=== PATIENT | male | born 1945 | race Caucasian/White ===

== ENCOUNTER → 2020-12-11 | Outpatient (CLI) | payer MEDICARE ==
--- NOTE | 2020-12-11 10:58 | CT ---
EXAMINATION TYPE: CT lumbar spine wo con DATE OF EXAM: 12/11/2020 COMPARISON: Body CT 07/11/2015 HISTORY: 75 year-old male M54.5, low back pain TECHNIQUE: Contiguous axial scanning of the lumbar spine without IV contrast. Coronal and sagittal re constructions performed. CT DLP: 1798.9 mGycm Automated exposure control for dose reduction was used. FINDINGS: Left bending device noted. Moderate atherosclerotic calcifications of abdominal aorta and common jn c arteries. Scattered cortical hypodensities in both kidneys, largest measuring 3.0 cm at the left upper pole sug gestive of cysts though slightly increased in size from 2014. There are bilateral L5 pars defects with grade 2 anterolisthesis of L5-S1 and associated hyperostoti c changes of the facet joints and severe degenerative disc disease, progressed from 2014. Posterior o steophytic ridging may cause a mild or moderate spinal canal stenosis. Severe bilateral neural forami nal stenosis noted. Moderate to advanced degenerative disc disease with desiccated discs from L2 through L5 levels. Multilevel facet arthropathy. Trace grade 1 retrolisthesis L2-L3. Possible mild narrowing of the spin al canal at this level. Otherwise, vertebral body heights are preserved. At L4-L5, moderate to severe bilateral neural foraminal stenosis. At L2-L3 and L3-L4, moderate right neuroforaminal stenosis. IMPRESSION: 1. BILATERAL L5 PARS DEFECTS WITH GRADE 2 ANTEROLISTHESIS AT L5-S1 AND ASSOCIATED SEVERE DISC/ENDPLAT E DEGENERATIVE CHANGE AND HYPEROSTOTIC CHANGES OF THE FACET JOINTS (PROGRESSED FROM 2014) 2. THERE MA Y BE A MILD OR MODERATE SPINAL CANAL STENOSIS HERE BUT SEVERE BILATERAL NEUROFORAMINAL STENOSIS. 2. DESICCATED AND DEGENERATIVE DISKS FROM L2 THROUGH L5 LEVELS AND SCATTERED FACET ARTHROPATHY. DEGEN ERATIVE GRADE 1 RETROLISTHESIS AT L2-L3 AND POSSIBLE MILD NARROWING OF THE SPINAL CANAL AT THIS LEVEL . 3. ADDITIONAL MODERATE TO SEVERE BILATERAL NEURAL FORAMINAL STENOSIS AT L4-L5. MODERATE ON THE RIGHT AT BOTH L2-L3 AND L3-L4.
== END | disposition home or self-care (01) ==
LOC: RADCTMAIN 10:11
PROVIDERS: ATTEND Orthopaedic Surgery
DX: M48.061 Spinal stenosis, lumbar region without neurogenic claudication (principal); M43.16 Spondylolisthesis, lumbar region; M43.17 Spondylolisthesis, lumbosacral region; M51.36 Other intervertebral disc degeneration, lumbar region; M47.816 Spondylosis without myelopathy or radiculopathy, lumbar region
CPT/HCPCS: 72131

== ENCOUNTER → 2021-02-05 | Outpatient (CLI) | payer MEDICARE ==
--- NOTE | 2021-02-05 21:29 | MR ---
EXAMINATION TYPE: MR lumbar spine wo con DATE OF EXAM: 02/05/2021 COMPARISON: CT lumbar spine 12/11/2020 HISTORY: Lower back and Bilateral Hip pain CONTRAST: 0 mL intravenous Gadavist. TECHNIQUE: Multiplanar, multisequence images of the lumbar spine were acquired. FINDINGS: L5-S1: There is loss of disc height this level. There is a grade 1 approaching grade 2 spondylolisthe sis of L5 anterior on S1. Facet degenerative changes are present. Disc uncovering is moderate anterio r thecal sac compression. Severe bilateral foraminal stenosis is present L4-L5: Disc bulge is mild anterior thecal sac flattening. No AP spinal canal stenosis is present. Sev ere bilateral foraminal narrowing is present. Mild facet hypertrophy is present. L3-L4: There is narrowing of disc height. Mild disc bulges anterior thecal sac contact. Facet hypertr ophy with ligamentum flavum laxity is present greater on the right. No spinal canal stenosis present. Bilateral foraminal narrowing is present. L2-L3: Disc space narrowing is present. Disc bulge of intrathecal sac flattening. Moderate bilateral foraminal narrowing is present. No AP spinal canal stenosis present L1-L2: Mild disc degenerative changes present. Anterior thecal sac contact is noted. No AP spinal can al stenosis or neural foraminal stenosis is present. T12-L1: No significant disc bulge or disc herniation. No spinal canal stenosis. No foraminal stenos is. There is a cyst on the left kidney IMPRESSION: 1. Grade 1 to grade 2 spondylolisthesis of L5 anteriorly on S1. 2. Complete loss of disc height at L5-S1. Disc degenerative change is present L2-3 through L4-5. 3. Severe foraminal narrowing L5-S1, L4-5 and L3-4. Milder foraminal narrowing is present discussed a otto.
== END | disposition home or self-care (01) ==
LOC: RADMRIMAIN 12:17
PROVIDERS: ATTEND Orthopaedic Surgery
DX: M51.26 Other intervertebral disc displacement, lumbar region (principal); M51.36 Other intervertebral disc degeneration, lumbar region; M43.17 Spondylolisthesis, lumbosacral region; M47.817 Spondylosis without myelopathy or radiculopathy, lumbosacral region; M99.73 Connective tissue and disc stenosis of intervertebral foramina of lumbar region; N28.1 Cyst of kidney, acquired
CPT/HCPCS: 72148

== ENCOUNTER 2021-06-16 07:35 | Inpatient (IN) | payer MEDICARE ==
[2021-06-16] MEDS ORDERED: SODIUM CHLORIDE 0.9% 500 ML 500 ML IV STA (07:47)
[2021-06-16] MEDS ORDERED: DILTIAZEM DRIP BOLUS FROM BAG 1 MG SOLN IV ONE (07:59)
[2021-06-16 08:27] LABS: Basophils # (A) 0.1 k/uL (0-0.2); Basophils % (A) 1 %; Eosinophils # (A) 0.1 k/uL (0-0.7); Eosinophils % (A) 2 %; HCT 42.2 % (39.0-53.0); HGB 13.8 gm/dL (13.0-17.5); Lymphocytes # (A) 1.1 k/uL (1.0-4.8); Lymphocytes % (A) 12 %; MCH 28.2 pg (25.0-35.0); MCHC 32.7 g/dL (31.0-37.0); MCV 86.1 fL (80.0-100.0); Mean Platelet Volume 8.8; Monocytes # (A) 0.7 k/uL (0-1.0); Monocytes % (A) 8 %; Neutrophils # (A) 6.6 k/uL (1.3-7.7); Neutrophils % (A) 75 %; Platelet Count 212 k/uL (150-450); RDW 14.4 % (11.5-15.5); WBC 8.8 k/uL (3.8-10.6)
[2021-06-16] MEDS: DILTIAZEM 125 MG in SODIUM CHLORIDE 0.9% 100 ML IV SCH ×2 (08:31→22:00)
[2021-06-16 08:38] LABS: Prothrombin Time 10.8 sec (9.0-12.0)
--- NOTE | 2021-06-16 08:43 | XR ---
EXAMINATION TYPE: XR chest 2V DATE OF EXAM: 06/16/2021 COMPARISON: Chest July 23, 2015 HISTORY: Dysrhythmia and SVT. TECHNIQUE: Frontal and lateral views of the chest are obtained. FINDINGS: There is chronic parenchymal change bilaterally without suspicious focal air space opacity , pleural effusion, or pneumothorax seen. The cardiac silhouette size is mildly enlarged with athero sclerotic aorta. Multilevel spurring in the spine which is straightened. IMPRESSION: Chronic parenchymal changes and mild cardiomegaly without acute pulmonary process.
[2021-06-16 08:53] LABS: Albumin 3.7 g/dL (3.5-5.0); Calcium 8.9 mg/dL (8.4-10.2); Magnesium 1.5 mg/dL (1.6-2.3); Potassium 3.9 mmol/L (3.5-5.1); Total Bilirubin 0.7 mg/dL (0.2-1.3); Total Protein 6.5 g/dL (6.3-8.2)
[2021-06-16] MEDS ORDERED: HEPARIN SODIUM 1,000 UN/ML (10ML VL) IV PRN (09:28)
[2021-06-16] MEDS ORDERED: HEPARIN SODIUM 1,000 UN/ML (10ML VL) IV ONE (09:28)
[2021-06-16] MEDS ORDERED: NALOXONE 0.4 MG/ML 1 ML VIAL IV PRN (11:05)
[2021-06-16] MEDS ORDERED: ACETAMINOPHEN TAB 325 MG TAB PO PRN (11:15)
--- NOTE | 2021-06-16 11:22 | ED ---
General Adult HPI - General Chief complaint: Arrhythmia/Palpitations Stated complaint: abn EKG Time Seen by Provider: 06/16/21 07:40 Source: patient, RN notes reviewed, old records reviewed Mode of arrival: ambulatory Limitations: no limitations - History of Present Illness Initial comments: 75-year-old male sent from the outpatient surgery center with tachycardia. Patient was therefore pain shot. He denied any symptoms, no chest pain. No palpitations. No history of atrial fibrillation or atrial flutter. He was noted to have a heart rate of 140 and was sent to the emergency department. No abdominal pain nausea vomiting. No fever. - Related Data Home Medications Medication Instructions Recorded Confirmed Benazepril HCl [Lotensin] 40 mg PO HS 07/11/15 06/16/21 amLODIPine [Norvasc] 5 mg PO DAILY 07/11/15 06/16/21 hydroCHLOROthiazide [Hydrodiuril] 50 mg PO DAILY 07/11/15 06/16/21 metFORMIN HCL [Glucophage] 500 mg PO BID 07/11/15 06/16/21 Levothyroxine Sodium 125 mcg PO DAILY 06/16/21 06/16/21 Lidocaine 5% Patch [Lidoderm] 1 patch TRANSDERM DAILY 06/16/21 06/16/21 Simvastatin 20 mg PO HS 06/16/21 06/16/21 hydrALAZINE HCL [Apresoline] 100 mg PO BID 06/16/21 06/16/21 Allergies Allergy/AdvReac Type Severity Reaction Status Date / Time No Known Allergies Allergy Verified 06/16/21 09:56 Review of Systems ROS Statement: Those systems with pertinent positive or pertinent negative responses have been documented in the HPI. ROS Other: All systems not noted in ROS Statement are negative. Past Medical History Past Medical History: Diabetes Mellitus, Hyperlipidemia, Hypertension History of Any Multi-Drug Resistant Organisms: None Reported Past Surgical History: Unable to Obtain Additional Past Surgical History / Comment(s): lap band February 2010, thryoid removed 2010 Past Anesthesia/Blood Transfusion Reactions: No Reported Reaction Past Psychological History: No Psychological Hx Reported Smoking Status: Former smoker Past Alcohol Use History: Occasional Past Drug Use History: None Reported - Past Family History Father Family Medical History: Hyperlipidemia Additional Family Medical History / Comment(s): enlarged heart General Exam Limitations: no limitations General appearance: alert, in no apparent distress Head exam: Present: atraumatic, normocephalic Eye exam: Present: normal appearance, PERRL ENT exam: Present: normal exam Neck exam: Present: normal inspection. Absent: tenderness, meningismus Respiratory exam: Present: normal lung sounds bilaterally. Absent: respiratory distress, wheezes Cardiovascular Exam: Present: normal rhythm, tachycardia GI/Abdominal exam: Present: soft. Absent: distended, tenderness, guarding Extremities exam: Present: normal capillary refill, pedal edema Neurological exam: Present: alert, oriented X3, CN II-XII intact. Absent: motor sensory deficit Psychiatric exam: Present: normal affect, normal mood Skin exam: Present: warm, dry, intact. Absent: cyanosis, diaphoretic Course Vital Signs 06/16/21 06/16/21 07:38 09:17 Temperature 97.6 F Pulse Rate 140 H 137 H Respiratory 20 16 Rate Blood Pressure 129/81 107/83 O2 Sat by Pulse 97 100 Oximetry EKG Findings - EKG Comments: EKG Findings:: EKG: Atrial flutter with 21 AV conduction bifascicular block, no ST segment elevation, ventricular rate of 139, QRS duration 142, QTC 596. Medical Decision Making - Medical Decision Making 75-year-old male presenting with chief complaint of tachycardia. Patient appears to be in the atrial flutter with 2:1 AV conduction at a rate of 140. He has normal CBC, normal CMP, minimally elevated troponin at 0.054. Chest x-ray is clear. I did discuss case with Dr. Barnard who will admit. Cardiology placed on consult. Patient is started on Cardizem and heparin in the emergency department. - Lab Data Result diagrams: 06/16/21 08:04 06/16/21 08:04 Lab Results 06/16/21 06/16/21 06/16/21 Range/Units 08:04 08:04 08:04 WBC 8.8 (3.8-10.6) k/uL RBC 4.90 (4.30-5.90) m/uL Hgb 13.8 (13.0-17.5) gm/dL Hct 42.2 (39.0-53.0) % MCV 86.1 (80.0-100.0) fL MCH 28.2 (25.0-35.0) pg MCHC 32.7 (31.0-37.0) g/dL RDW 14.4 (11.5-15.5) % Plt Count 212 (150-450) k/uL MPV 8.8 Neutrophils % 75 % Lymphocytes % 12 % Monocytes % 8 % Eosinophils % 2 % Basophils % 1 % Neutrophils # 6.6 (1.3-7.7) k/uL Lymphocytes # 1.1 (1.0-4.8) k/uL Monocytes # 0.7 (0-1.0) k/uL Eosinophils # 0.1 (0-0.7) k/uL Basophils # 0.1 (0-0.2) k/uL PT 10.8 (9.0-12.0) sec INR 1.0 (<1.2) APTT 25.0 (22.0-30.0) sec Sodium 140 (137-145) mmol/L Potassium 3.9 (3.5-5.1) mmol/L Chloride 107 (98-107) mmol/L Carbon Dioxide 21 L (22-30) mmol/L Anion Gap 12 mmol/L BUN 17 (9-20) mg/dL Creatinine 1.33 H (0.66-1.25) mg/dL Est GFR (CKD-EPI)AfAm 60 (>60 ml/min/1.73 sqM) Est GFR (CKD-EPI)NonAf 52 (>60 ml/min/1.73 sqM) Glucose 138 H (74-99) mg/dL Calcium 8.9 (8.4-10.2) mg/dL Magnesium 1.5 L (1.6-2.3) mg/dL Total Bilirubin 0.7 (0.2-1.3) mg/dL AST 18 (17-59) U/L ALT 15 (4-49) U/L Alkaline Phosphatase 80 (38-126) U/L Troponin I (0.000-0.034) ng/mL Total Protein 6.5 (6.3-8.2) g/dL Albumin 3.7 (3.5-5.0) g/dL 06/16/21 Range/Units 08:04 WBC (3.8-10.6) k/uL RBC (4.30-5.90) m/uL Hgb (13.0-17.5) gm/dL Hct (39.0-53.0) % MCV (80.0-100.0) fL MCH (25.0-35.0) pg MCHC (31.0-37.0) g/dL RDW (11.5-15.5) % Plt Count (150-450) k/uL MPV Neutrophils % % Lymphocytes % % Monocytes % % Eosinophils % % Basophils % % Neutrophils # (1.3-7.7) k/uL Lymphocytes # (1.0-4.8) k/uL Monocytes # (0-1.0) k/uL Eosinophils # (0-0.7) k/uL Basophils # (0-0.2) k/uL PT (9.0-12.0) sec INR (<1.2) APTT (22.0-30.0) sec Sodium (137-145) mmol/L Potassium (3.5-5.1) mmol/L Chloride (98-107) mmol/L Carbon Dioxide (22-30) mmol/L Anion Gap mmol/L BUN (9-20) mg/dL Creatinine (0.66-1.25) mg/dL Est GFR (CKD-EPI)AfAm (>60 ml/min/1.73 sqM) Est GFR (CKD-EPI)NonAf (>60 ml/min/1.73 sqM) Glucose (74-99) mg/dL Calcium (8.4-10.2) mg/dL Magnesium (1.6-2.3) mg/dL Total Bilirubin (0.2-1.3) mg/dL AST (17-59) U/L ALT (4-49) U/L Alkaline Phosphatase (38-126) U/L Troponin I 0.054 H* (0.000-0.034) ng/mL Total Protein (6.3-8.2) g/dL Albumin (3.5-5.0) g/dL Critical Care Time Critical Care Time: Yes Total Critical Care Time: 35 Disposition Clinical Impression: Atrial flutter Disposition: ADMITTED IP TO THIS HOSP Condition: Stable Is patient prescribed a controlled substance at d/c from ED?: No Referrals: Ronald Waite MD [Primary Care Provider] - 1-2 days Decision to Admit Reason: Admit from EC Decision Date: 06/16/21 Decision Time: 11:22
[2021-06-16] MEDS: SODIUM CHLORIDE 0.9% 1,000 ML IV SCH (11:57)
[2021-06-16] MEDS: HEPARIN SOD,PORK IN 0.45% NACL 25,000 UNIT in 0.45% NACL 1 250ML.BAG IV SCH (11:58)
--- NOTE | 2021-06-16 12:57 | P.HPIM ---
History of Present Illness H&P Date: 06/16/21 HISTORY OF PRESENT ILLNESS This is a 75-year-old male patient of Dr. Waite with a past medical history of COPD in the care of Dr. Sr, hypertension, hyperlipidemia, diabetes mellitus type 2. Patient has ongoing problems with lower back pain for which he has been seen by both Dr. Geronimo and Dr. Cool. Patient was scheduled for epidural steroid injection with Dr. Ocampo today but he was found to have tachycardia and was sent into [facility] emergency center for evaluation. Patient denies having any cardiac history and denies history of atrial fibri llation. He presented with a heart rate of 140, EKG is atrial flutter with a 2:1. ECG was unremarkable. CO2 21 and creatinine 1.33, blood sugar 138. Troponin 0.054. Chest x-ray showed no acute pulmonary process. Patient was started on heparin drip and Cardizem drip with Cardizem at 5 mg per hour, patient currently in atrial flutter running 120s to 130s. Patient is seen today in the emergency center waiting for a cardiac stepdown bed. REVIEW OF SYSTEMS Constitutional: No fever, no chills, no night sweats. No weight change. No weakness, fatigue or lethargy. No daytime sleepiness. EENT: No headache. No blurred vision or double vision, no loss of vision. No loss of Hearing, no ringing in the ears, no dizziness. No nasal drainage or congestion. No epistaxis. No sore throat. Lungs: No shortness of breath, cough, no sputum production. No wheezing. Cardiovascular: No chest pain, no lower extremity edema. No palpitations. No paroxysmal nocturnal dyspnea. No orthopnea. No lightheadedness or dizziness. No syncopal episodes. Abdominal: No abdominal pain. No nausea, vomiting. No diarrhea. No constipation. No bloody or tarry stools.. No loss of appetite. Genitourinary: No dysuria, increased frequency, urgency. No urinary retention. Musculoskeletal: No myalgias. No muscle weakness, no gait dysfunction, no frequent falls. No back pain. No neck pain. Integumentary: No wounds, no lesions. No rash or pruritus. No unusual bruising. No change in hair or nails. Neurologic: No aphasia. No facial droop. No change in mentation. No head injury. No headache. No paralysis. No paresthesia. Psychiatric: No depression. No anxiety. No mood swings. Endocrine: No abnormal blood sugars. No weight change. SOCIAL HISTORY She was a smoker for 30 years and quit many years ago. He drinks alcohol rarely. No marijuana or illicit drug use. He is . He does not have CPAP, oxygen, nebulizer. FAMILY HISTORY Mother at age 93 from old age. Father at age 79 from coronary artery disease and COPD. He has one sister that is alive at age 81 with no major medical problems. He does not have any brothers. Patient has one son with no major medical problems. PHYSICAL EXAMINATION Gen: This is a 75-year-old male, seated in chair and the emergency center. He appears to be at no acute distress at rest. HEENT: Head is atraumatic, normocephalic. Pupils equal, round. Sclerae is anicteric. NECK: Supple. No JVD. No lymphadenopathy. No thyromegaly. LUNGS: Clear to auscultation. No wheezes or rhonchi. No intercostal retractions. HEART: Regular rate and rhythm. Systolic murmur. Tachycardic. ABDOMEN: Soft. Bowel sounds are present. No masses. No tenderness. EXTREMITIES: No pedal edema. No calf tenderness. Dorsalis pedis palpable bi laterally. NEUROLOGICAL: Patient is awake, alert and oriented x3. Cranial nerves 2 through 12 are grossly intact. ASSESSMENT AND PLAN 1. New onset atrial flutter, typical. Patient has been started on heparin drip, Cardizem drip, cardiology consult. 2. Hypertension. Benazepril 40 mg at bedtime, amlodipine 5 mg daily and hydrochlorothiazide 50 mg daily on hold as blood pressure is currently on the soft side. 3. Hyperlipidemia. Continue Lipitor 10 mg at bedtime. 4. Diabetes mellitus type 2. Continue metformin 500 mg twice daily and NovoLog scale before meals and at bedtime. 5. Hypothyroidism. Continue levothyroxine 125 g daily, obtain TSH and free T4. 6. COPD, stable without exacerbation. 7. DVT prophylaxis. Heparin drip. 8. GI prophylaxis. Protonix. 9. COVID-19 testing negative. Patient has been hospitalized during a pandemic. Patient will be admitted to the hospital for a minimum of 2 night stay. DISCHARGE PLAN Home. Impression and plan of care have been directed as dictated by the signing physician. Rosanna Davis nurse practitioner acting as scribe for signing physician. Past Medical History Past Medical History: Diabetes Mellitus, Hyperlipidemia, Hypertension History of Any Multi-Drug Resistant Organisms: None Reported Past Surgical History: Unable to Obtain Additional Past Surgical History / Comment(s): lap band February 2010, thryoid removed 2010 Past Anesthesia/Blood Transfusion Reactions: No Reported Reaction Past Psychological History: No Psychological Hx Reported Smoking Status: Former smoker Past Alcohol Use History: Occasional Past Drug Use History: None Reported - Past Family History Father Family Medical History: Hyperlipidemia Additional Family Medical History / Comment(s): enlarged heart Medications and Allergies Home Medications Medication Instructions Recorded Confirmed Type Benazepril HCl [Lotensin] 40 mg PO HS 07/11/15 06/16/21 History amLODIPine [Norvasc] 5 mg PO DAILY 07/11/15 06/16/21 History hydroCHLOROthiazide [Hydrodiuril] 50 mg PO DAILY 07/11/15 06/16/21 History metFORMIN HCL [Glucophage] 500 mg PO BID 07/11/15 06/16/21 History Levothyroxine Sodium 125 mcg PO DAILY 06/16/21 06/16/21 History Lidocaine 5% Patch [Lidoderm] 1 patch TRANSDERM DAILY 06/16/21 06/16/21 History Simvastatin 20 mg PO HS 06/16/21 06/16/21 History hydrALAZINE HCL [Apresoline] 100 mg PO BID 06/16/21 06/16/21 History Allergies Allergy/AdvReac Type Severity Reaction Status Date / Time No Known Allergies Allergy Verified 06/16/21 09:56 Physical Exam Vitals: Vital Signs Temp Pulse Resp BP Pulse Ox 06/16/21 09:17 137 H 16 107/83 100 06/16/21 07:38 97.6 F 140 H 20 129/81 97 Intake and Output 06/15/21 06/16/21 06/16/21 22:59 06:59 14:59 Other: Weight 114.305 kg Results CBC & Chem 7: 06/16/21 08:04 06/16/21 08:04 Labs: Abnormal Lab Results - Last 24 Hours (Table) 06/16/21 06/16/21 Range/Units 08:04 08:04 Carbon Dioxide 21 L (22-30) mmol/L Creatinine 1.33 H (0.66-1.25) mg/dL Glucose 138 H (74-99) mg/dL Magnesium 1.5 L (1.6-2.3) mg/dL Troponin I 0.054 H* (0.000-0.034) ng/mL
[2021-06-16 13:10] LABS: Glucose,Whole Blood 139 mg/dL (75-99)
[2021-06-16] MEDS ORDERED: METOPROLOL TARTRATE 25 MG TAB PO STA (14:21)
[2021-06-16 16:45] LABS: Glucose,Whole Blood 149 mg/dL (75-99)
[2021-06-16] MEDS ORDERED: Magnesium Replacement Protocol 1 EACH MISC MISCELLANE PRN (16:49)
[2021-06-16] MEDS: INSULIN ASPART (NovoLOG) 100 UNIT/ML VIAL SQ SCH ×2 (16:59→21:22)
[2021-06-16] MEDS: MAGNESIUM SULFATE-D5W PMX 1 GM in DEXTROSE/WATER 1 100ML.BAG IVPB SCH ×2 (17:51→18:55)
--- NOTE | 2021-06-16 18:37 | CONS ---
MOIRA Cohen is a 75-year-old gentleman with history of diabetes, hypertension and heart murmur who presented to hospital with cardiac arrhythmia. Patient was in the hospital for epidural injection and was found to be in atrial fibrillation with rapid ventricular rate, for which he was admitted to hospital. He denies chest pain, difficulty in breathing, sustained palpitations, dizziness or syncope. There is no history of leg edema, PND or orthopnea. There is no history of focal neurological deficits. He has been treated initially with intravenous Cardizem at 5 mg. Subsequently it has been increased to 10 mg. At the time of my evaluation, he is still in atrial fibrillation with rapid ventricular rate. I am increasing the dose of Cardizem to 15 mg and also starting him on metoprolol 25 b.i.d. If necessary, I will add amiodarone. He is currently on IV heparin and I will obtain an echocardiogram in the morning. His TSH is normal. Hemoglobin is normal. Renal functions are normal. His hemoglobin is normal. The plan at this stage is to control his heart rate, obtain an echocardiogram, anticoagulate him, discharge him home and consider cardioversion as outpatient. If his heart rate remains poorly controlled, we might have to cardiovert him on this admission. PAST MEDICAL HISTORY: Significant for diabetes, hypertension, dyslipidemia. MEDICATIONS: Medications at home included metformin, HydroDIURIL, apresoline, Norvasc, simvastatin and Lotensin. ALLERGIES: THERE ARE NO KNOWN DRUG ALLERGIES. FAMILY HISTORY: Negative for premature coronary artery disease. SOCIAL HISTORY: Negative for smoking, EtOH abuse or drug abuse. REVIEW OF SYSTEMS: HEENT is unremarkable. CARDIAC: As described above. RESPIRATORY: Negative. GI: Negative. GENITOURINARY: Negative. ALLERGY/IMMUNOLOGY: Negative. SKIN: Negative. MUSCULOSKELETAL: Significant for arthritis. PSYCHOSOCIAL: Negative. ENDOCRINE: Negative. DERMATOLOGY: Negative. CONSTITUTIONAL: Negative. ONCOLOGICAL: Negative. PESTICIDE CHEMIST: Negative. Rest of the system review is not relevant. PHYSICAL EXAMINATION: Patient is comfortable at rest. Heart rate is 138 beats per minute. Blood pressure is 106/54, respiratory rate is 16, O2 saturation is 97% on room air. There is no jugular venous distention. Carotid upstroke is normal. There is no bruit. Chest exam reveals good air entry bilaterally. Heart exam reveals first and second heart sounds, a grade 3/6 ejection systolic murmur in the aortic area. Abdomen is soft. Examination of extremities did not reveal any edema. Peripheral pulses are felt. LABS: Hemoglobin 13.8, platelet count 212. Potassium is 3.9. Creatinine is 1.3. Troponin is elevated at 0.038 and TSH is normal. ASSESSMENT: 1. Persistent atrial fibrillation with poorly controlled ventricular rate. 2. Elevated troponin, probably secondary to supply/demand mismatch. 3. Aortic stenosis. 4. Hypertension. 5. Diabetes. PLAN: I will obtain a 2D echo in the morning. Continue the IV heparin, IV Cardizem and oral metoprolol. If necessary, I will start him on amiodarone. MMODL / IJN: [id number] /
[2021-06-16 20:13] LABS: Glucose,Whole Blood 132 mg/dL (75-99)
[2021-06-16] MEDS: ATORVASTATIN 10 MG TAB PO SCH (21:24)
[2021-06-16] MEDS: metFORMIN 500 MG TAB PO SCH (21:24)
[2021-06-17 06:16] LABS: Glucose,Whole Blood 123 mg/dL (75-99)
[2021-06-17] MEDS: INSULIN ASPART (NovoLOG) 100 UNIT/ML VIAL SQ SCH ×4 (06:26→21:09)
[2021-06-17] MEDS: SODIUM CHLORIDE 0.9% 1,000 ML IV SCH ×3 (06:42→23:02)
[2021-06-17] MEDS: PANTOPRAZOLE 40 MG TABLET PO SCH (06:43)
[2021-06-17] MEDS: LEVOTHYROXINE 125 MCG TAB PO SCH (06:43)
[2021-06-17 07:20] LABS: Basophils # (A) 0.1 k/uL (0-0.2); Basophils % (A) 1 %; Eosinophils # (A) 0.2 k/uL (0-0.7); Eosinophils % (A) 2 %; HCT 42.3 % (39.0-53.0); HGB 14.1 gm/dL (13.0-17.5); Lymphocytes # (A) 1.5 k/uL (1.0-4.8); Lymphocytes % (A) 17 %; MCH 28.5 pg (25.0-35.0); MCHC 33.2 g/dL (31.0-37.0); MCV 85.9 fL (80.0-100.0); Monocytes # (A) 0.6 k/uL (0-1.0); Monocytes % (A) 7 %; Neutrophils # (A) 6.1 k/uL (1.3-7.7); Neutrophils % (A) 71 %; Platelet Count 203 k/uL (150-450); RBC 4.93 m/uL (4.30-5.90); RDW 14.6 % (11.5-15.5); WBC 8.6 k/uL (3.8-10.6)
[2021-06-17] MEDS ORDERED: METOPROLOL TARTRATE 50 MG TAB PO STA (07:54)
[2021-06-17] MEDS: LIDOCAINE 5% PATCH TOPICAL SCH (08:16)
[2021-06-17] MEDS: metFORMIN 500 MG TAB PO SCH ×2 (08:16→19:45)
[2021-06-17 08:17] LABS: Partial Thromboplastin Time 49.2 sec (22.0-30.0); Prothrombin Time 10.8 sec (9.0-12.0)
--- NOTE | 2021-06-17 09:25 | ECHOF ---
Referral Reason:LVF MEASUREMENTS -------- HEIGHT: 180.3 cm WEIGHT: 114.3 kg BP: RVIDd: 2.6 cm (< 3.3) IVSd: 2.1 cm (0.6 - 1.1) LVIDd: 3.4 cm (3.9 - 5.3) LVPWd: 1.8 cm (0.6 - 1.1) IVSs: 2.5 cm LVIDs: 2.0 cm LVPWs: 2.2 cm Ao Diam: 3.9 cm (2.0 - 3.7) AV Cusp: 0.8 cm (1.5 - 2.6) LA Diam: 3.7 cm (2.7 - 3.8) AV maxP.53 mmHg AV meanP.56 mmHg RAP: 5.00 mmHg RVSP: 28.76 mmHg FINDINGS -------- The rhythm appears to be atrial flutter. This was a technically good study. The left ventricular size is normal. There is severe concentric left ventricular hypertrophy. Ove rall left ventricular systolic function is low-normal with, an EF between 50 - 55 %. The right ventricle is normal in size. The left atrial size is normal. The right atrial size is normal. Aortic valve is trileaflet and is moderately thickened. There is moderate aortic stenosis present. The maximum velocity across the aortic valve is 2.76m/s. Peak/mean gradient across the Aortic Liene ve is 30.53mmHg / 19.56mmHg. The mitral valve is normal. The mitral valve leaflets are mildly thickened. There is trace mitral regurgitation. The tricuspid valve appears structurally normal. Mild tricuspid regurgitation present. Right vent ricular systolic pressure is normal at < 35 mmHg. There is no pulmonic regurgitation present. The aortic root size is normal. Normal inferior vena cava with normal inspiratory collapse consistent with estimated right atrial pre ssure of 5 mmHg. There is no pericardial effusion. CONCLUSIONS -------- 1. The rhythm appears to be atrial flutter. 2. The left ventricular size is normal. 3. There is severe concentric left ventricular hypertrophy. 4. Aortic valve is trileaflet and is moderately thickened. 5. There is moderate aortic stenosis present. 6. The maximum velocity across the aortic valve is 2.76m/s. 7. Peak/mean gradient across the Aortic Valve is 30.53mmHg / 19.56mmHg. 8. The mitral valve leaflets are mildly thickened. 9. There is trace mitral regurgitation. 10. Mild tricuspid regurgitation present. 11. There is no pericardial effusion. [employer] FOREMAN: Lisa Hernandes RDCS
[2021-06-17 11:48] LABS: Glucose,Whole Blood 128 mg/dL (75-99)
--- NOTE | 2021-06-17 13:58 | P.PN ---
Subjective Progress Note Date: 06/17/21 HISTORY OF PRESENT ILLNESS: This a 75-year-old male who is admitted to the hospital secondary to new onset atrial fibrillation with RVR. Patient examined this morning at the bedside. Patient denies chest pain or pressure. He denies shortness of breath. He denies palpitations. Telemetry reveals atrial fibrillation with RVR. He remains on a Cardizem drip at 10 mg an hour. Echocardiogram completed revealed ejection fraction 50-55%, moderate aortic stenosis, trace mitral regurgitation, mild tricuspid regurgitation. PHYSICAL EXAM: VITAL SIGNS: Reviewed. GENERAL: Well-developed in no acute distress. NECK: Supple. No JVD or thyromegaly LUNGS: Respirations even and unlabored. Lungs essentially clear to auscultation bilaterally. HEART: Tachycardic. Irregular rate and rhythm. S1 and S2 heard. Systolic murmur noted. EXTREMITIES: Normal range of motion. No clubbing or cyanosis. Peripheral pulses intact. No lower extremity edema ASSESSMENT: New-onset persistent atrial fibrillation with RVR Abnormal troponin, secondary to above, no evidence of acute coronary syndrome Aortic stenosis Hypertension Hyperlipidemia PLAN: Discontinue IV heparin. Begin Eliquis 5 mg twice a day Begin metoprolol 50 mg twice a day Continue telemetry monitoring. Monitor blood pressure. Wean off Cardizem drip Further recommendations pending patient's course Nurse practitioner note has been reviewed by physician. Signing provider agrees with the documented findings, assessment, and plan of care. Objective - Vital Signs Vital signs: Vital Signs Temp 98 F 06/17/21 12:00 Pulse 108 H 06/17/21 12:00 Resp 16 06/17/21 12:00 BP 94/54 06/17/21 12:00 Pulse Ox 99 06/17/21 12:00 Intake & Output 06/16/21 06/17/21 06/17/21 18:59 06:59 18:59 Intake Total 472.162 127.631 423.624 Balance 472.162 127.631 423.624 Weight 114.305 kg 115.7 kg Intake: Intake, IV Titration 112.162 127.631 183.624 Amount Diltiazem 125 mg In 62.500 62.5 48.417 Sodium Chloride 0.9% 100 ml @ 5 MG/HR 5 mls/hr IV .Q24H [facility] Rx#:[id number] Heparin Sod,Pork in 0.45% 49.662 65.131 135.207 NaCl 25,000 unit In 0.45 % NaCl 1 250ml.bag @ 8. 748 UNITS/KG/HR 9.999 mls /hr IV .Q24H [facility] Rx#: [id number] Oral 360 240 Other: Voiding Method Toilet Toilet # Voids 1 1 - Labs CBC & Chem 7: 06/17/21 06:58 06/16/21 08:04 Labs: Abnormal Lab Results - Last 24 Hours (Table) 06/16/21 06/16/21 06/16/21 Range/Units 11:53 16:03 16:03 APTT 31.6 H (22.0-30.0) sec POC Glucose (mg/dL) (75-99) mg/dL Troponin I 0.038 H* 0.041 H* (0.000-0.034) ng/mL 06/16/21 06/16/21 06/16/21 Range/Units 16:44 20:12 21:10 APTT 53.6 H (22.0-30.0) sec POC Glucose (mg/dL) 149 H 132 H (75-99) mg/dL Troponin I (0.000-0.034) ng/mL 06/17/21 06/17/21 06/17/21 Range/Units 06:15 06:58 11:36 APTT 49.2 H (22.0-30.0) sec POC Glucose (mg/dL) 123 H 128 H (75-99) mg/dL Troponin I (0.000-0.034) ng/mL
--- NOTE | 2021-06-17 14:37 | P.PN ---
Subjective Progress Note Date: 06/17/21 HISTORY OF PRESENT ILLNESS This is a 75-year-old male patient of Dr. Waite with a past medical history of COPD in the care of Dr. Sr, hypertension, hyperlipidemia, diabetes mellitus type 2. Patient has ongoing problems with lower back pain for which he has been seen by both Dr. Geronimo and Dr. Cool. Patient was scheduled for epidural steroid injection with Dr. Ocampo today but he was found to have tachycardia and was sent into [facility] emergency center for evaluation. Patient denies having any cardiac history and denies history of atrial fibrillation. He presented with a heart rate of 140, EKG is atrial flutter with a 2:1. ECG was unremarkable. CO2 21 and creatinine 1.33, blood sugar 138. Troponin 0.054. Chest x-ray showed no acute pulmonary process. Patient was started on heparin drip and Cardizem drip with Cardizem at 5 mg per hour, pat ient currently in atrial flutter running 120s to 130s. Patient is seen today in the emergency center waiting for a cardiac stepdown bed. 06/17: Patient states that he did okay during the night but once he got up this morning and started moving around, his heart rate went up. Cardiology has continued Cardizem drip, increased Lopressor to 50 mg twice daily and started patient on eliquis, heparin discontinued. Heart rate was running in the 120s, blood pressure 130/81, pulse ox 99% on room air, afebrile. Blood sugars are running between 123 and 132. REVIEW OF SYSTEMS Constitutional: No fever, no chills, no night sweats. No weight change. No weakness, fatigue or lethargy. No daytime sleepiness. EENT: No headache. No blurred vision or double vision, no loss of vision. No loss of Hearing, no ringing in the ears, no dizziness. No nasal drainage or congestion. No epistaxis. No sore throat. Lungs: No shortness of breath, cough, no sputum production. No wheezing. Cardiovascular: No chest pain, no lower extremity edema. No palpitations. No paroxysmal nocturnal dyspnea. No orthopnea. No lightheadedness or dizziness. No syncopal episodes. Abdominal: No abdominal pain. No nausea, vomiting. No diarrhea. No constipation. No bloody or tarry stools.. No loss of appetite. Genitourinary: No dysuria, increased frequency, urgency. No urinary retention. Musculoskeletal: No myalgias. No muscle weakness, no gait dysfunction, no frequent falls. No back pain. No neck pain. Integumentary: No wounds, no lesions. No rash or pruritus. No unusual br uising. No change in hair or nails. Neurologic: No aphasia. No facial droop. No change in mentation. No head injury. No headache. No paralysis. No paresthesia. Psychiatric: No depression. No anxiety. No mood swings. Endocrine: No abnormal blood sugars. No weight change. PHYSICAL EXAMINATION Gen: This is a 75-year-old male, resting in a recliner and appears to be in no acute distress at rest. HEENT: Head is atraumatic, normocephalic. Pupils equal, round. Sclerae is anicteric. NECK: Supple. No JVD. No lymphadenopathy. No thyromegaly. LUNGS: Clear to auscultation. No wheezes or rhonchi. No intercostal retractions. HEART: Irregular rate and rhythm. Systolic murmur. Tachycardic. ABDOMEN: Soft. Bowel sounds are present. No masses. No tenderness. EXTREMITIES: No pedal edema. No calf tenderness. Dorsalis pedis palpable bilaterally. NEUROLOGICAL: Patient is awake, alert and oriented x3. Cranial nerves 2 through 12 are grossly intact. ASSESSMENT AND PLAN 1. New onset atrial flutter, typical. Patient has been transitioned from heparin drip to eliquis, continue Lopressor increased to 50 mg twice daily and continue Cardizem drip, cardiology consult appreciated. 2. Hypertension. Benazepril 40 mg at bedtime, amlodipine 5 mg daily and hydrochlorothiazide 50 mg daily on hold as blood pressure is currently on the soft side. 3. Hyperlipidemia. Continue Lipitor 10 mg at bedtime. 4. Diabetes mellitus type 2. Continue metformin 500 mg twice daily and NovoLog scale before meals and at bedtime. 5. Hypothyroidism. Continue levothyroxine 125 g daily, obtain TSH and free T4. 6. COPD, stable without exacerbation. 7. DVT prophylaxis. Heparin drip. 8. GI prophylaxis. Protonix. 9. COVID-19 testing negative. Patient has been hospitalized during a pandemic. CODE STATUS: No code. DISCHARGE PLAN Home on . Impression and plan of care have been directed as dictated by the signing physician. Rosanna Davis nurse practitioner acting as scribe for signing phys bitaan. Objective - Vital Signs Vital signs: Vital Signs Temp 97.6 F 06/17/21 08:15 Pulse 129 H 06/17/21 08:15 Resp 18 06/17/21 08:15 BP 130/81 06/17/21 08:15 Pulse Ox 99 06/17/21 08:15 Intake & Output 06/16/21 06/17/21 06/17/21 18:59 06:59 18:59 Intake Total 472.162 127.631 423.624 Balance 472.162 127.631 423.624 Weight 114.305 kg 115.7 kg Intake: Intake, IV Titration 112.162 127.631 183.624 Amount Diltiazem 125 mg In 62.500 62.5 48.417 Sodium Chloride 0.9% 100 ml @ 5 MG/HR 5 mls/hr IV .Q24H [facility] Rx#:[id number] Heparin Sod,Pork in 0.45% 49.662 65.131 135.207 NaCl 25,000 unit In 0.45 % NaCl 1 250ml.bag @ 8. 748 UNITS/KG/HR 9.999 mls /hr IV .Q24H [facility] Rx#: [id number] Oral 360 240 Other: Voiding Method Toilet Toilet # Voids 1 1 - Labs CBC & Chem 7: 06/17/21 06:58 06/16/21 08:04 Labs: Abnormal Lab Results - Last 24 Hours (Table) 06/16/21 06/16/21 06/16/21 Range/Units 11:53 13:08 16:03 APTT 31.6 H (22.0-30.0) sec POC Glucose (mg/dL) 139 H (75-99) mg/dL Troponin I 0.038 H* (0.000-0.034) ng/mL 06/16/21 06/16/21 06/16/21 Range/Units 16:03 16:44 20:12 APTT (22.0-30.0) sec POC Glucose (mg/dL) 149 H 132 H (75-99) mg/dL Troponin I 0.041 H* (0.000-0.034) ng/mL 06/16/21 06/17/21 06/17/21 Range/Units 21:10 06:15 06:58 APTT 53.6 H 49.2 H (22.0-30.0) sec POC Glucose (mg/dL) 123 H (75-99) mg/dL Troponin I (0.000-0.034) ng/mL
[2021-06-17] MEDS: APIXABAN 5 MG TAB PO SCH ×2 (14:46→22:53)
[2021-06-17] MEDS: HEPARIN SOD,PORK IN 0.45% NACL 25,000 UNIT in 0.45% NACL 1 250ML.BAG IV SCH (14:51)
[2021-06-17 17:11] LABS: Glucose,Whole Blood 130 mg/dL (75-99)
[2021-06-17] MEDS: DILTIAZEM 125 MG in SODIUM CHLORIDE 0.9% 100 ML IV SCH (18:27)
[2021-06-17] MEDS: ATORVASTATIN 10 MG TAB PO SCH (19:45)
[2021-06-17] MEDS: METOPROLOL TARTRATE 50 MG TAB PO SCH (19:45)
[2021-06-17 20:16] LABS: Glucose,Whole Blood 164 mg/dL (75-99)
[2021-06-17] MEDS ORDERED: METOPROLOL TARTRATE 25 MG TAB PO SCH (21:00)
[2021-06-18 03:35] VITALS: RESP 20
[2021-06-18 06:18] LABS: Glucose,Whole Blood 132 mg/dL (75-99)
[2021-06-18] MEDS: LEVOTHYROXINE 125 MCG TAB PO SCH (06:41)
[2021-06-18] MEDS: INSULIN ASPART (NovoLOG) 100 UNIT/ML VIAL SQ SCH ×2 (06:41→12:04)
[2021-06-18] MEDS: PANTOPRAZOLE 40 MG TABLET PO SCH (06:46)
[2021-06-18] MEDS: METOPROLOL TARTRATE 50 MG TAB PO SCH (08:30)
[2021-06-18] MEDS: metFORMIN 500 MG TAB PO SCH (08:30)
[2021-06-18] MEDS: APIXABAN 5 MG TAB PO SCH (08:30)
[2021-06-18] MEDS: LIDOCAINE 5% PATCH TOPICAL SCH (08:32)
[2021-06-18] MEDS ORDERED: METOPROLOL TARTRATE 50 MG TAB PO STA (10:02)
[2021-06-18] MEDS ORDERED: AMIODARONE 200 MG TAB PO SCH (11:15)
[2021-06-18 11:42] LABS: Glucose,Whole Blood 128 mg/dL (75-99)
[2021-06-18 11:59] VITALS: BP 107/72; PULSE 116; TEMP 97.6
--- NOTE | 2021-06-18 12:04 | P.PN ---
Subjective Progress Note Date: 06/18/21 HISTORY OF PRESENT ILLNESS: This a 75-year-old male who is admitted to the hospital secondary to new onset atrial fibrillation with RVR. Patient examined this morning at the bedside. Patient denies chest pain or pressure. He denies shortness of breath. He denies palpitations. Telemetry reveals atrial fibrillation with RVR. He remains on a Cardizem drip at 10 mg an hour. Echocardiogram completed revealed ejection fraction 50-55%, moderate aortic stenosis, trace mitral regurgitation, mild tricuspid regurgitation. 06/18/2021 Patient examined this morning at the bedside. Patient remains in afib with HR 100-125. Patient denies chest pain or pressure. He denies shortness of breath. He denies palpitations. Patient has been transitioned to Eliquis. He remains on a Cardizem drip at 5 mg an hour. Patient is currently receiving metoprolol tartrate 50 mg twice a day. PHYSICAL EXAM: VITAL SIGNS: Reviewed. GENERAL: Well-developed in no acute distress. NECK: Supple. No JVD or thyromegaly LUNGS: Respirations even and unlabored. Lungs essentially clear to auscultation bilaterally. HEART: Tachycardic. Irregular rate and rhythm. S1 and S2 heard. Systolic murmur noted. EXTREMITIES: Normal range of motion. No clubbing or cyanosis. Peripheral pulses intact. No lower extremity edema ASSESSMENT: New-onset persistent atrial fibrillation with RVR Abnormal troponin, secondary to above, no evidence of acute coronary syndrome Aortic stenosis Hypertension Hyperlipidemia PLAN: Continue anticoagulation with Eliquis Increase metoprolol tartrate to 50 mg twice a day Add oral amiodarone 400 mg twice a day Wean off Cardizem drip Continue telemetry monitoring. Monitor blood pressure. Further recommendations pending patient's course Nurse practitioner note has been reviewed by physician. Signing provider agrees with the documented findings, assessment, and plan of care. Objective - Vital Signs Vital signs: Vital Signs Temp 97.6 F 06/18/21 11:58 Pulse 116 H 06/18/21 11:58 Resp 20 06/18/21 11:58 BP 107/72 06/18/21 11:58 Pulse Ox 98 06/18/21 11:58 Intake & Output 06/17/21 06/18/21 06/18/21 18:59 06:59 18:59 Intake Total 1930.041 240 Balance 1930.041 240 Weight 115.5 kg Intake: Intake, IV Titration 252.041 Amount Diltiazem 125 mg In 116.834 Sodium Chloride 0.9% 100 ml @ 5 MG/HR 5 mls/hr IV .Q24H [facility] Rx#:[id number] Heparin Sod,Pork in 0.45% 135.207 NaCl 25,000 unit In 0.45 % NaCl 1 250ml.bag @ 8. 748 UNITS/KG/HR 9.999 mls /hr IV .Q24H [facility] Rx#: [id number] Oral 1678 240 Other: Voiding Method Toilet Toilet # Voids 3 1 1 - Labs CBC & Chem 7: 06/17/21 06:58 06/16/21 08:04 Labs: Abnormal Lab Results - Last 24 Hours (Table) 06/17/21 06/17/21 06/18/21 Range/Units 16:51 20:15 06:16 POC Glucose (mg/dL) 130 H 164 H 132 H (75-99) mg/dL 06/18/21 Range/Units 11:40 POC Glucose (mg/dL) 128 H (75-99) mg/dL
--- NOTE | 2021-06-18 15:32 | P.DS ---
Providers Date of admission: 06/16/21 11:05 Expected date of discharge: 06/18/21 Attending physician: Maciej Barnard Consults: 06/16/21 11:18 Consult Physician Routine Consulting Provider: eJan Chavez Consult Reason/Comments: New-onset atrial flutter Do you want consulting provider notified?: Yes Primary care physician: Ronald Waite [facility] Course: HISTORY OF PRESENT ILLNESS This is a 75-year-old male patient of Dr. Waite with a past medical history of COPD in the care of Dr. Sr, hypertension, hyperlipidemia, diabetes mellitus type 2. Patient has ongoing problems with lower back pain for which he has been seen by both Dr. Geronimo and Dr. Cool. Patient was scheduled for epidural steroid injection with Dr. Ocampo today but he was found to have tachycardia and was sent into [facility] emergency center for evaluation. Patient denies having any cardiac history and denies history of atrial fibrillation. He presented with a heart rate of 140, EKG is atrial flutter with a 2:1. ECG was unremarkable. CO2 21 and creatinine 1.33, blood sugar 138. Troponin 0.054. Chest x-ray showed no acute pulmonary process. Patient was started on heparin drip and Cardizem drip with Cardizem at 5 mg per hour, patient currently in atrial flutter running 120s to 130s. Patient is seen today in the emergency center waiting for a cardiac stepdown bed. 06/17: Patient states that he did okay during the night but once he got up this morning and started moving around, his heart rate went up. Cardiology has continued Cardizem drip, increased Lopressor to 50 mg twice daily and started patient on eliquis, heparin discontinued. Heart rate was running in the 120s, blood pressure 130/81, pulse ox 99% on room air, afebrile. Blood sugars are running between 123 and 132. 06/18: Cardiology has started the patient on amiodarone and if rate is controlled, patient is cleared for discharge home later today. He remains on Cardizem drip. His heart rate currently is running between 100 and 129.he has been afebrile, heart rate 107/72 blood sugars are running 128 264. Fortunately in the afternoon, patient's heart rate was well controlled and patient was cleared for discharge by cardiology. Patient will be discharged home today in stable condition. ASSESSMENT AND PLAN 1. New onset atrial flutter, typical, persistent atrial fibrillation. 2. Hypertension. 3. Hyperlipidemia. 4. Diabetes mellitus type 2. 5. Hypothyroidism. 6. COPD, stable without exacerbation. 7. COVID-19 testing negative. Patient has been hospitalized during a pandemic. DISCHARGE PLAN Home Impression and plan of care have been directed as dictated by the signing physician. Rosanna Davis nurse practitioner acting as scribe for signing physician. Patient Condition at Discharge: Good Plan - Discharge Summary Discharge Rx Participant: No New Discharge Prescriptions: New Apixaban [Eliquis] 5 mg PO BID #60 tab Metoprolol Tartrate [Lopressor] 100 mg PO BID #120 tab Amiodarone [Cordarone] 200 mg PO BID #60 tab Continue hydroCHLOROthiazide [Hydrodiuril] 50 mg PO DAILY metFORMIN HCL [Glucophage] 500 mg PO BID Simvastatin 20 mg PO HS Levothyroxine Sodium 125 mcg PO DAILY Lidocaine 5% Patch [Lidoderm 5% Patch] 1 patch TRANSDERM DAILY Discontinued amLODIPine [Norvasc] 5 mg PO DAILY Benazepril HCl [Lotensin] 40 mg PO HS hydrALAZINE HCL [Apresoline] 100 mg PO BID Discharge Medication List hydroCHLOROthiazide [Hydrodiuril] 50 mg PO DAILY 07/11/15 [History] metFORMIN HCL [Glucophage] 500 mg PO BID 07/11/15 [History] Levothyroxine Sodium 125 mcg PO DAILY 06/16/21 [History] Lidocaine 5% Patch [Lidoderm 5% Patch] 1 patch TRANSDERM DAILY 06/16/21 [History] Simvastatin 20 mg PO HS 06/16/21 [History] Apixaban [Eliquis] 5 mg PO BID #60 tab 06/17/21 [Rx] Amiodarone [Cordarone] 200 mg PO BID #60 tab 06/18/21 [Rx] Metoprolol Tartrate [Lopressor] 100 mg PO BID #120 tab 06/18/21 [Rx] Follow up Appointment(s)/Referral(s): Tayo Mcarthur MD [STAFF PHYSICIAN] - 06/29/21 11:15 am Ronald Waite MD [Primary Care Provider] - 06/23/21 11:15 am Patient Instructions/Handouts: A-fib (Atrial Fibrillation) (DC) Activity/Diet/Wound Care/Special Instructions: Nurse Please fax any new meds to [facility] [phone]. Discharge Disposition: HOME SELF-CARE
[2021-06-18 16:42] LABS: Glucose,Whole Blood 147 mg/dL (75-99)
[2021-06-18] MEDS ORDERED: METOPROLOL TARTRATE 50 MG TAB PO SCH (21:00)
== END 2021-06-18 17:55 | disposition home or self-care (01) | DRG 310 ==
LOC: EC 07:35 → 3SCARD 11:05
PROVIDERS: ADMIT Internal Medicine Geriatric Medicine; ATTEND Internal Medicine Geriatric Medicine
PROC: B246ZZ4 Ultrasonography of Right and Left Heart, Transesophageal (ICD-10-PCS; principal; 2021-06-16)
DX: I48.3 Typical atrial flutter (principal); I48.19 Other persistent atrial fibrillation; I10 Essential (primary) hypertension; E78.5 Hyperlipidemia, unspecified; I08.3 Combined rheumatic disorders of mitral, aortic and tricuspid valves; E11.9 Type 2 diabetes mellitus without complications; Z20.822 Contact with and (suspected) exposure to COVID-19; R00.0 Tachycardia, unspecified; E03.9 Hypothyroidism, unspecified; J44.9 Chronic obstructive pulmonary disease, unspecified; Z79.84 Long term (current) use of oral hypoglycemic drugs; Z79.890 Hormone replacement therapy; Z79.899 Other long term (current) drug therapy; Z87.891 Personal history of nicotine dependence
CPT/HCPCS: 36415; 71046; 80053; 83735; 84443; 84484; 85025; 85610; 85730; 93005; 93306; 94760; 96361; 96374; 99291

== ENCOUNTER 2021-07-10 08:08 | Day surgery (SDC) | payer MEDICARE ==
[2021-07-08 10:37] VITALS: BMI 33.9
[~2021-07-10 08:08] MED LIST: LACTATED RINGERS 1,000 ML IV SCH; SODIUM CHLORIDE 0.9% 1,000 ML IV SCH
[2021-07-10] MEDS ORDERED: SODIUM CHLORIDE 0.9% 500 ML 500 ML IV ONE (08:25)
[2021-07-10 08:36] LABS: Glucose,Whole Blood 152 mg/dL (75-99)
[2021-07-10 08:47] VITALS: TEMP 98.4
[2021-07-10] MEDS ORDERED: PROPOFOL 10 MG/ML 20 ML VIAL IV ONE (09:01)
[2021-07-10 09:46] VITALS: RESP 16
--- NOTE | 2021-07-10 11:16 | ECHOT ---
TRANSESOPHAGEAL ECHOCARDIOGRAM DATE OF SERVICE: July 10, 2021. PERFORMING PHYSICIAN: Tayo Mcarthur MD. PROCEDURE PERFORMED: Transesophageal echocardiogram. INDICATION: Rule out left atrial appendage thrombus before cardioversion. COMPLICATION: None. LEVEL OF SEDATION: The patient the procedure was performed using propofol with SOFTWARE TEST ENGINEER in the room. PROCEDURE DESCRIPTION: After obtaining informed consent, the patient was brought to the recovery room. Pulse oximetry and heart rate monitors were attached to the patient. Subsequently the transesophageal echocardiogram probe was advanced through the bite guard to the mid esophageal. After that, I did a transesophageal echocardiogram using 2D echo, as well as color Doppler and pulse Doppler, and continuous-wave Doppler. Particular attention was made to the left atrial appendage. FINDINGS: The left ventricle appeared to be dilated. Left ventricular systolic function appeared to be impaired with EF around 40%. Right ventricle appeared to be of normal size and function. The left atrium appeared to be dilated. Left atrial appendage appeared to be free from any thrombus. The interatrial septum appeared to be intact. The aortic valve appeared to be thickened and calcified with restriction to opening probably secondary to low EF. The mitral valve seems to be mildly thickened with mild to moderate MR. Normal tricuspid valve as well as pulmonic valve. CONCLUSION: 1. No evidence of intracardiac thrombus. 2. Intact left atrial appendage. 3. Impaired LV function with EF around 40%. 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 4. Aortic sclerosis with aortic stenosis likely secondary to low ejection fraction. 5. Thickened mitral valve leaflets with mild to moderate MR. 6. Normal tricuspid valve and pulmonic valve. 7. No evidence of pericardial effusion. MMODL / IJN: [id number] /
--- NOTE | 2021-07-10 11:21 | PCN ---
PROCEDURE NOTE CARDIOVERSION: DATE OF SERVICE: 07/10/2021. PERFORMING PHYSICIAN: Tayo Mcarthur MD. PROCEDURE PERFORMED: Cardioversion of atrial flutter into sinus mechanism using 200 joules on first attempt. COMPLICATION: None. LEVEL OF SEDATION: The procedure was performed with anesthesia using propofol. PROCEDURE DESCRIPTION: After transesophageal echocardiogram was performed and left atrial appendage thrombus was ruled out, we did cardioversion. The patient cardioverted from atrial fibrillation to normal sinus mechanism using 200 joules on first attempt. CONCLUSION: Successful cardioversion of atrial flutter to normal sinus mechanism using 200 joules on first attempt. MMODL / IJN: [id number] /
[2021-07-10 12:29] VITALS: BP 130/71; PULSE 67
== END 2021-07-10 10:55 | disposition home or self-care (01) ==
LOC: CATHCVL 08:08
PROVIDERS: ATTEND Internal Medicine Interventional Cardiology
DX: I48.92 Unspecified atrial flutter (principal); Z20.822 Contact with and (suspected) exposure to COVID-19; I48.91 Unspecified atrial fibrillation; E11.9 Type 2 diabetes mellitus without complications; I10 Essential (primary) hypertension; E78.5 Hyperlipidemia, unspecified; F17.210 Nicotine dependence, cigarettes, uncomplicated; I45.10 Unspecified right bundle-branch block; Z79.899 Other long term (current) drug therapy; Z79.01 Long term (current) use of anticoagulants; I35.0 Nonrheumatic aortic (valve) stenosis; I34.0 Nonrheumatic mitral (valve) insufficiency; I48.3 Typical atrial flutter
CPT/HCPCS: 93312; 93320; 93325; 92960; 87635; J2704

== ENCOUNTER → 2021-09-07 | Outpatient (CLI) | payer MEDICARE | END | disposition home or self-care (01) | LOC: LABPAT 09:05 | PROVIDERS: ATTEND Orthopaedic Surgery | DX: Z01.812 Encounter for preprocedural laboratory examination (principal); M16.11 Unilateral primary osteoarthritis, right hip | CPT/HCPCS: 87070 ==

== ENCOUNTER 2021-09-15 09:15 | Inpatient (IN) | payer MEDICARE ==
[2021-09-09 09:03] VITALS: BMI 32.8
--- NOTE | 2021-09-14 10:34 | HP ---
HISTORY AND PHYSICAL CHIEF COMPLAINT: Right hip pain. HISTORY OF PRESENT ILLNESS: The patient is a 75-year-old retired male who presents with progressive right knee pain for the past several years, worsening over the past 8 months. He notes groin and thigh pain, worse with weightbearing activities. He notes it severely limits him. He has tried medications in addition to activity modifications without much relief. PAST MEDICAL HISTORY: Significant for type 2 diabetes, hypertension, hypothyroidism, atrial fibrillation and hyperlipidemia. CURRENT MEDICATIONS: Amlodipine, benazepril, hydralazine, hydrochlorothiazide, Levoxyl, metformin and simvastatin along with Eliquis. ALLERGIES: HE DENIES DRUG ALLERGIES. FAMILY HISTORY: Noncontributory. SOCIAL HISTORY: Significant for previous tobacco use. REVIEW OF SYSTEMS: Sixteen-point review of systems otherwise reviewed and is noncontributory. PHYSICAL EXAMINATION: On examination, the patient is approximately 6 feet tall, 255 pounds of endomorphic habitus. HEENT exam is nonfocal. Neck is supple. Active motion of the right hip: Flexion 85 degrees, external rotation with hip flexed 60 degrees, internal rotation 5 degrees with pain. Abduction strength is 5/5. His distal neurovascular exam appears intact in the right lower extremity. X-rays of the right hip obtained in the office show severe osteoarthrosis with subchondral sclerosis. IMPRESSION: 1. Right hip severe osteoarthrosis. 2. Type 2 diabetes. 3. History of atrial fibrillation, on anticoagulation. RECOMMENDATIONS: I talked to the patient at length regarding his condition along with treatment options. At this point he is quite symptomatic and limited because of pain related to his right hip osteoarthrosis. After thorough discussion, he opts to proceed with surgery. We will plan to proceed with right total hip arthroplasty. We will reinstitute his Eliquis postoperatively. MMODL / IJN: [id number] /
[~2021-09-15 09:15] MED LIST changes: +ACETAMINOPHEN TAB 500 MG TAB PO PRN; +HYDROmorphone 0.5 MG/0.5 ML SYRINGE IVP PRN; -LACTATED RINGERS 1,000 ML IV SCH; +LIDOCAINE 1% (10MG/ML) FOR IV START INTRADERMA PRN; +MELOXICAM 7.5 MG TAB PO PRN; +ONDANSETRON 4 MG/2 ML VIAL IVP ONE; -SODIUM CHLORIDE 0.9% 1,000 ML IV SCH; +TRANEXAMIC ACID 1,000 MG in SODIUM CHLORIDE 0.9% 100 ML IVPB PRN
[2021-09-15] MEDS: LACTATED RINGERS 1,000 ML IV SCH (10:20)
[2021-09-15 10:24] LABS: Glucose,Whole Blood 138 mg/dL (75-99)
[2021-09-15] MEDS ORDERED: GLYCOPYRROLATE 0.2 MG/ML 2 ML VIAL ONE (10:45)
[2021-09-15] MEDS ORDERED: fentaNYL (PF) 50 MCG/ML 2 ML AMP ONE (10:45)
[2021-09-15] MEDS ORDERED: SUCCINYLCHOLINE CHLORIDE 100 MG/5 ML SYR IV ONE (10:45)
[2021-09-15] MEDS ORDERED: TRANEXAMIC ACID 1,000 MG/10 ML VIAL ONE (10:45)
[2021-09-15] MEDS ORDERED: NEOSTIGMINE 1 MG/ML 10 ML VIAL ONE (10:45)
[2021-09-15] MEDS ORDERED: MIDAZOLAM 2 MG/2 ML VIAL ONE (10:45)
[2021-09-15] MEDS ORDERED: HYDROmorphone (PF) 1 MG/ML ONE (10:45)
[2021-09-15] MEDS ORDERED: LABETALOL 5 MG/ML VIAL MDV ONE (10:45)
[2021-09-15] MEDS ORDERED: ROCURONIUM 10 MG/ML (5 ML VIAL) IV ONE (10:45)
[2021-09-15] MEDS ORDERED: LIDOCAINE 1% INJ 10MG/ML (20 ML MDV) ONE (10:45)
[2021-09-15] MEDS ORDERED: ETOMIDATE 2 MG/ML 10 ML VIAL ONE (10:45)
[2021-09-15] MEDS ORDERED: SODIUM CHLORIDE 0.9% 100 ML BAG ONE (10:45)
[2021-09-15] MEDS ORDERED: PHENYLEPHRINE-0.9% NACL SYG 1,000 MCG/10 ML SYRINGE ONE (10:45)
[2021-09-15] MEDS ORDERED: ceFAZolin 1,000 MG in SODIUM CHLORIDE 0.9% 1,000 ML IRRIGATION ONE (10:58)
[2021-09-15] MEDS ORDERED: LACTATED RINGERS 1,000 ML IV ONE (12:24)
[2021-09-15] MEDS ORDERED: ACETAMINOPHEN TAB 325 MG TAB PO PRN (12:32)
[2021-09-15] MEDS ORDERED: ONDANSETRON 4 MG/2 ML VIAL IVP PRN (12:32)
[2021-09-15] MEDS ORDERED: HYDROmorphone 0.5 MG/0.5 ML SYRINGE IVP PRN (12:32)
[2021-09-15] MEDS ORDERED: NALOXONE 0.4 MG/ML 1 ML VIAL IV PRN (12:32)
[2021-09-15] MEDS ORDERED: HYDROcodone/APAP 5-325MG 1 EACH TAB PO PRN (12:32)
[2021-09-15] MEDS ORDERED: MAGNESIUM HYDROXIDE 2,400 MG/10 ML CUP PO PRN (12:32)
--- NOTE | 2021-09-15 12:53 | P.OP ---
Date of Procedure: 09/15/21 Preoperative Diagnosis: Severe right hip osteoarthrosis Postoperative Diagnosis: Same Procedure(s) Performed: Right total hip arthroplastypress-fitlateral approach Implants: Depuy Corail size 11 KLA press-fit collared femoral stem, 36+1.5 cobalt chrome femoral head, 58 mm [place] acetabular shell with neutral polyethylene liner. Anesthesia: GETA Surgeon: Wilfrido Babb Cash Accounting Clerk #1: Alok Way Estimated Blood Loss (ml): 100 Pathology: other (Femoral head) Condition: stable Disposition: PACU Indications for Procedure: The patient's a 75-year-old male who presents with progressive right hip pain secondary Ka[place] arthrosis despite conservative treatment. A discussion of the risks and benefits of operative intervention versus continued conservative measures made with patient. He opted to proceed with surgery. Operative risks to include infection, neurovascular injury, development of blood clots, leg length discrepancy, fracture, possible instability and need for subsequent procedures was discussed. Informed consent was obtained. Operative Findings: As below Description of Procedure: The patient was brought to the operating room, and after induction of spinal anesthesia was placed in a lateral decubitus position. The bony prominences were appropriately padded. The pelvis was stable perpendicular to the floor with a pegboard. The right lower extremity was prepped and draped in normal fashion. A 12 cm incision was then made centered over the greater trochanter extending superiorly to level the ASIS and distally in line with the femoral shaft. The skin and subcutaneous tissues were divided sharply. Electrocautery was used for hemostasis. The fascia elisa and gluteus leonie fascia was split in line with the skin incision. The muscle fibers were bluntly dissected proximally. A self-retaining retractor was placed. The anterior and posterior margins of the gluteus medius muscles identified and the anterior two thirds was detached from the greater trochanter with electrocautery. The gluteus minimus tendon was identified and detached in a similar fashion. A wide capsulotomy was performed. The femoral neck fracture was identified in the lower neck cut was made approximately 1 1/2 cm above the level of the lesser trochanter with a sagittal saw at a 45 the shaft. The head was then extracted with a corkscrew. Attention was then paid towards preparing the acetabular. Anterior and posterior retractors were placed. The remaining capsular labral tissues debrided sharply clearly defining the acetabular margins. Began reaming with a 51 mm reamer taking care to initially medialize, then reaming at 45 of abduction and 20 of anteversion. Sequential reaming is performed up to 57 mm. This was down to bleeding bony surface. A trial 58 mm acetabular shell was inserted at 45 of abduction and 20 of anteversion. This was fully seated. There was good rim fit and stability. A neutral polyethylene liner was then impacted. Care taken to avoid any soft tissue interposition. Attention was then paid towards preparing the proximal femur. A box chisel was used to open the metaphyseal region. A canal finder was used to find the femoral canal. Sequential broaching was performed up to a size 11. This is placed in 15 of anteversion with the leg perpendicular floor judging off the trans-epicondylar axis. There is good rotational stability. A calcar mill was used to fashion the medial calcar. A trial KLA neck along with a 36 mm + 1.5 trial head was placed. The hip was gently reduced. It was taken through range of motion. I felt to be stable in flexion and extension with internal and external rotation. I felt there was adequate anabaptist of soft tissue tension. The hip was gently dislocated. The trial components removed. Pulsatile lavage was utilized. The final size 11 KLA collared femoral stem was inserted again with the leg perpendicular to the floor in 15 of anteversion. Again there was good rotational stability. A 36 mm + 1.5 cobalt chrome femoral head was gently impacted. The hip was gently reduced. Again it was taken through motion and felt to be stable in flexion and extension with internal and external rotation. Pulsatile lavage was again utilized. With the leg in abduction the gluteus minimus and medius tendons reattached to the greater trochanter with #2 Ethibond suture. There was minimal drainage therefore a deep drain was not placed. The fascia elisa and gluteus leonie fascia was closed with #2 Ethibond suture. The subcutaneous tissues were reapproximated interrupted 2-0 Vicryl sutures. The skin was reapproximated with 3-0 subcuticular strata fix suture. Skin tape and adhesive was applied. A sterile dressing was applied. The patient was awoken from sedation and transferred to recovery room in good condition. Blood loss was estimated 100 mL. No complications were incurred. Sponge and needle counts were correct in the case. Mathew SALAMANCA assisted during the major composes case to include exposure, implantation, and closure.
[2021-09-15 13:02] LABS: Glucose,Whole Blood 133 mg/dL (75-99)
--- NOTE | 2021-09-15 13:18 | XR ---
EXAMINATION TYPE: XR Hip Limited RT DATE OF EXAM: 09/15/2021 COMPARISON: NONE HISTORY: Postop TECHNIQUE: One view submitted. FINDINGS: There is postsurgical change in near anatomic alignment. There is soft tissue edema and emphysema. V ascular calcifications are seen. IMPRESSION: 1. Postoperative change. Appears in near-anatomic alignment.
[2021-09-15 16:48] LABS: Glucose,Whole Blood 148 mg/dL (75-99)
[2021-09-15] MEDS: HYDROcodone/APAP 7.5-325MG 1 EACH TAB PO PRN (18:04)
[2021-09-15 20:55] LABS: Glucose,Whole Blood 153 mg/dL (75-99)
[2021-09-15] MEDS: metFORMIN 500 MG TAB PO SCH (21:11)
[2021-09-15] MEDS: AMIODARONE 200 MG TAB PO SCH (21:11)
[2021-09-15] MEDS: SENNOSIDES-DOCUSATE SODIUM 1 EACH TAB PO SCH (21:11)
[2021-09-15] MEDS: ATORVASTATIN 10 MG TAB PO SCH (21:11)
[2021-09-16] MEDS: HYDROcodone/APAP 7.5-325MG 1 EACH TAB PO PRN ×2 (02:14→10:51)
[2021-09-16 05:28] LABS: Basophils % (A) 0 %; Eosinophils # (A) 0.1 k/uL (0-0.7); Eosinophils % (A) 1 %; HCT 44.6 % (39.0-53.0); HGB 14.3 gm/dL (13.0-17.5); Lymphocytes # (A) 0.8 k/uL (1.0-4.8); Lymphocytes % (A) 8 %; MCH 27.9 pg (25.0-35.0); MCHC 32.1 g/dL (31.0-37.0); MCV 86.9 fL (80.0-100.0); Monocytes # (A) 0.9 k/uL (0-1.0); Monocytes % (A) 9 %; Neutrophils # (A) 8.7 k/uL (1.3-7.7); Neutrophils % (A) 81 %; Platelet Count 203 k/uL (150-450); RBC 5.13 m/uL (4.30-5.90); RDW 15.3 % (11.5-15.5); WBC 10.7 k/uL (3.8-10.6)
[2021-09-16] MEDS: LEVOTHYROXINE 125 MCG TAB PO SCH (05:40)
[2021-09-16 07:30] LABS: Glucose,Whole Blood 202 mg/dL (75-99)
[2021-09-16] MEDS: LACTATED RINGERS 1,000 ML IV SCH (07:35)
[2021-09-16] MEDS: APIXABAN 5 MG TAB PO SCH ×2 (07:35→20:35)
[2021-09-16] MEDS: FAMOTIDINE 20 MG TAB PO SCH (07:36)
[2021-09-16] MEDS: METOPROLOL TARTRATE 25 MG TAB PO SCH ×2 (07:36→20:35)
[2021-09-16] MEDS: metFORMIN 500 MG TAB PO SCH ×2 (07:36→20:35)
--- NOTE | 2021-09-16 10:55 | P.PN ---
Subjective Progress Note Date: 09/16/21 Principal diagnosis: Right hip osteoarthritis Patient was seen at bedside this morning sitting up in chair resting comfortably. Patient says his hip is moderate amount of pain. He says pain is mostly located on the lateral side over the incision. He says he did get up yesterday once he got to his room but did have difficulty walking around the room with nurses at his side using walker. Patient says he does live at home alone, but he has friends/neighbors that can help him. Patient says he has not had bowel movement yet, however, patient says he has been passing gas. Patient denies chest pain, fever, shortness breath, nausea, vomiting, change in vision, loss of bowel/bladder control. Objective - Vital Signs Vital signs: Vital Signs Temp 98.0 F 09/16/21 07:55 Pulse 127 H 09/16/21 07:55 Resp 18 09/16/21 07:55 BP 108/71 09/16/21 07:55 Pulse Ox 96 09/16/21 07:55 Intake & Output 09/15/21 09/16/21 09/16/21 18:59 06:59 18:59 Intake Total 1551 180 Output Total 100 Balance 1451 180 Weight 108 kg Intake: IV 1501 Intake, IV Titration 50 Amount ceFAZolin 2 gm In Sodium 50 Chloride 0.9% 50 ml @ 100 mls/hr IVPB ONCE PRN Rx# :[id number] Oral 180 Output: Estimated Blood Loss 100 Other: # Voids 2 - Exam Right hip: Incision is clean, dry, and intact. The mesh tape is in good condition. There is minimal soft tissue swelling and ecchymosis surrounding the medial and lateral aspects of the incision. Calf is soft, no tenderness with palpation. Plantar flexion, dorsiflexion, EHL, FHL are intact. Sensory exam to light touch throughout the extremity is intact, dorsal pedis pulses 2+. - Labs CBC & Chem 7: 09/16/21 04:55 Labs: Abnormal Lab Results - Last 24 Hours (Table) 09/15/21 09/15/21 09/15/21 Range/Units 13:00 16:46 20:51 WBC (3.8-10.6) k/uL Neutrophils # (1.3-7.7) k/uL Lymphocytes # (1.0-4.8) k/uL POC Glucose (mg/dL) 133 H 148 H 153 H (75-99) mg/dL 09/16/21 09/16/21 Range/Units 04:55 07:29 WBC 10.7 H (3.8-10.6) k/uL Neutrophils # 8.7 H (1.3-7.7) k/uL Lymphocytes # 0.8 L (1.0-4.8) k/uL POC Glucose (mg/dL) 202 H (75-99) mg/dL Assessment and Plan Assessment: Right hip osteoarthritis Postoperative day 1 status post right total hip arthroplasty Plan: 1. Right hip osteoarthritis - right total hip arthroplasty performed yesterday, 09/15/2021. Patient stable at bedside this morning. 2. Appreciate medical management 3. Pain management - [place]; Dilaudid only when needed 4. DVT prophylaxis - Eliquis 5. GI prophylaxis - senna 6. Encourage incentive spirometer use 7. PT/OT - weightbearing as tolerated with walker for assistance 8. Discharge planning - plan discharge home versus [facility] tomorrow, , 09/17/2021 Time with Patient: Less than 30
[2021-09-16] MEDS ORDERED: METOPROLOL TARTRATE 25 MG TAB PO STA (11:14)
[2021-09-16 11:49] LABS: Glucose,Whole Blood 180 mg/dL (75-99)
--- NOTE | 2021-09-16 13:03 | P.CONS ---
History of Present Illness - Reason for Consult Consult date: 09/16/21 - History of Present Illness HISTORY OF PRESENT ILLNESS This is a 75-year-old male patient of Dr. Waite with a past medical history of COPD in the care of Dr. Sr, hypertension, hyperlipidemia, diabetes mellitus type 2, aortic stenosis, paroxysmal atrial fibrillation. Patient has been brought in the hospital under the care of Dr. Babb status post right hip arthroplasty completed yesterday. Patient has difficulty with heart rate control. He was apparently in the 130s all night, it was reported the patient received labetalol indoor/recovery. Patient was on able to get epidural due to heart rate being too high. Patient started on metoprolol tartrate 5 mg twice daily with stat dose now. Patient was a 2 person max assist this morning and will require rehab. When this was discussed patient states that he does not want to go to rehab and will be returning home. He has a cane and walker at home. REVIEW OF SYSTEMS Constitutional: No fever, no chills, no night sweats. No weight change. No weakness, fatigue or lethargy. No daytime sleepiness. EENT: No headache. No blurred vision or double vision, no loss of vision. No loss of Hearing, no ringing in the ears, no dizziness. No nasal drainage or congestion. No epistaxis. No sore throat. Lungs: No shortness of breath, cough, no sputum production. No wheezing. Cardiovascular: No chest pain, no lower extremity edema. No palpitations. No paroxysmal nocturnal dyspnea. No orthopnea. No lightheadedness or dizziness. No syncopal episodes. Abdominal: No abdominal pain. No nausea, vomiting. No diarrhea. No constipation. No bloody or tarry stools.. No loss of appetite. Genitourinary: No dysuria, increased frequency, urgency. No urinary retention. Musculoskeletal: No myalgias. No muscle weakness, no gait dysfunction, no frequent falls. No back pain. No neck pain. Right hip discomfort. Integumentary: No wounds, no lesions. No rash or pruritus. No unusual bruising. No change in hair or nails. Neurologic: No aphasia. No facial droop. No change in mentation. No head injury. No headache. No paralysis. No paresthesia. Psychiatric: No depression. No anxiety. No mood swings. Endocrine: No abnormal blood sugars. No weight change. SOCIAL HISTORY He was a smoker for 30 years and quit many years ago. He drinks alcohol rarely. No marijuana or illicit drug use. He is . He does not have CPAP, oxygen, nebulizer. FAMILY HISTORY Mother at age 93 from old age. Father at age 79 from coronary artery disease and COPD. He has one sister that is alive at age 81 with no major medical problems. He does not have any brothers. Patient has one son with no major medical problems. PHYSICAL EXAMINATION Gen: This is a 75-year-old male, seated in chair and appears to be at no acute distress at rest. HEENT: Head is atraumatic, normocephalic. Pupils equal, round. Sclerae is a nicteric. NECK: Supple. No JVD. No lymphadenopathy. No thyromegaly. LUNGS: Clear to auscultation. No wheezes or rhonchi. No intercostal retractions. HEART: Regular rate and rhythm. Systolic murmur. Tachycardic. ABDOMEN: Soft. Bowel sounds are present. No masses. No tenderness. EXTREMITIES: No pedal edema. No calf tenderness. Dorsalis pedis palpable bilaterally. Small dressing in place to the right hip. NEUROLOGICAL: Patient is awake, alert and oriented x3. Cranial nerves 2 through 12 are grossly intact. ASSESSMENT AND PLAN 1. Osteoarthritis status post right total hip arthroplasty 09/[address] Babb. Continue current management per orthopedics, PT, OT, pain management, incentive spirometry to reduce incidence of atelectasis and hospital-acquired pneumonia. 2. Paroxysmal onset atrial fibrillation with RVR. Patient continued on amiodarone 200 mg at bedtime, eliquis 5 mg twice daily, Lopressor added 25 mg twice daily added. 2. Hypertension. Benazepril 40 mg at bedtime, amlodipine 5 mg daily and hydrochlorothiazide 50 mg daily. 3. Hyperlipidemia. Continue Lipitor 10 mg at bedtime. 4. Diabetes mellitus type 2. Continue metformin 500 mg twice daily and NovoLog scale before meals and at bedtime. 5. Hypothyroidism. Continue levothyroxine 125 g daily. 6. COPD, stable without exacerbation. 7. DVT prophylaxis. Eliquis. 8. GI prophylaxis. Pepcid. 9. COVID-19 testing negative. Patient has been hospitalized during a pandemic. Patient will be admitted to the hospital for a minimum of 2 night stay. DISCHARGE PLAN Subacute rehab. Impression and plan of care have been directed as dictated by the signing physician. Rosanna Davis nurse practitioner acting as scribe for signing physician. Past Medical History Past Medical History: Atrial Fibrillation, Diabetes Mellitus, Hearing Disorder / Deafness, Hyperlipidemia, Hypertension, Thyroid Disorder Additional Past Medical History / Comment(s): Ringing in ears, slightly hard of hearing,. back pain History of Any Multi-Drug Resistant Organisms: None Reported Past Surgical History: Bariatric Surgery, Cardiac Ablation, Tonsillectomy Additional Past Surgical History / Comment(s): Lap band February 2010, thryoidectomy 2010. Past Anesthesia/Blood Transfusion Reactions: No Reported Reaction Past Psychological History: No Psychological Hx Reported Smoking Status: Former smoker Past Alcohol Use History: Rare Additional Past Alcohol Use History / Comment(s): Quit smoking "yrs and yrs ago". Past Drug Use History: None Reported - Past Family History Father Family Medical History: Cancer, Hyperlipidemia Additional Family Medical History / Comment(s): Enlarged heart, skin cancer. Medications and Allergies Home Medications Medication Instructions Recorded Confirmed Type hydroCHLOROthiazide [Hydrodiuril] 50 mg PO DAILY 07/11/15 09/09/21 History metFORMIN HCL [Glucophage] 500 mg PO BID 07/11/15 09/09/21 History Levothyroxine Sodium 125 mcg PO QAM 06/16/21 09/09/21 History Simvastatin 20 mg PO HS 06/16/21 09/09/21 History Apixaban [Eliquis] 5 mg PO BID #60 tab 06/17/21 09/14/21 Rx Amiodarone [Cordarone] 200 mg PO HS 07/08/21 09/14/21 History Allergies Allergy/AdvReac Type Severity Reaction Status Date / Time No Known Allergies Allergy Verified 09/15/21 10:05 Physical Exam Vitals: Vital Signs Temp Pulse Pulse Resp BP BP Pulse Ox 09/16/21 07:55 98.0 F 127 H 18 108/71 96 09/16/21 02:13 98.1 F 128 H 12 118/79 95 09/15/21 21:00 98.3 F 128 H 18 119/78 98 09/15/21 14:57 119 H 09/15/21 14:28 97.8 F 121 H 17 122/76 100 09/15/21 14:15 119 H 16 127/80 98 09/15/21 14:03 119 H 16 133/87 100 09/15/21 13:47 120 H 16 139/84 99 09/15/21 13:30 119 H 16 140/85 99 09/15/21 13:16 118 H 16 143/81 94 L 09/15/21 13:00 117 H 16 142/81 98 09/15/21 12:51 97.8 F 115 H 18 155/86 97 Intake and Output 09/15/21 09/16/21 09/16/21 22:59 06:59 14:59 Intake Total 230 Balance 230 Intake: Intake, IV Titration 50 Amount ceFAZolin 2 gm In Sodium 50 Chloride 0.9% 50 ml @ 100 mls/hr IVPB ONCE PRN Rx# :[id number] Oral 180 Other: # Voids 2 Results CBC & Chem 7: 09/16/21 04:55 Labs: Abnormal Lab Results - Last 24 Hours (Table) 09/15/21 09/15/21 09/15/21 Range/Units 13:00 16:46 20:51 WBC (3.8-10.6) k/uL Neutrophils # (1.3-7.7) k/uL Lymphocytes # (1.0-4.8) k/uL POC Glucose (mg/dL) 133 H 148 H 153 H (75-99) mg/dL 09/16/21 09/16/21 Range/Units 04:55 07:29 WBC 10.7 H (3.8-10.6) k/uL Neutrophils # 8.7 H (1.3-7.7) k/uL Lymphocytes # 0.8 L (1.0-4.8) k/uL POC Glucose (mg/dL) 202 H (75-99) mg/dL
[2021-09-16 16:46] LABS: Glucose,Whole Blood 182 mg/dL (75-99)
[2021-09-16] MEDS: INSULIN ASPART (NovoLOG) 100 UNIT/ML VIAL SQ SCH ×2 (17:09→20:36)
[2021-09-16 20:29] LABS: Glucose,Whole Blood 168 mg/dL (75-99)
[2021-09-16] MEDS: ATORVASTATIN 10 MG TAB PO SCH (20:35)
[2021-09-16] MEDS: AMIODARONE 200 MG TAB PO SCH (20:35)
[2021-09-16] MEDS: SENNOSIDES-DOCUSATE SODIUM 1 EACH TAB PO SCH (20:36)
[2021-09-17] MEDS: LEVOTHYROXINE 125 MCG TAB PO SCH (06:11)
[2021-09-17 07:15] LABS: Glucose,Whole Blood 139 mg/dL (75-99)
[2021-09-17] MEDS: LACTATED RINGERS 1,000 ML IV SCH (07:22)
[2021-09-17] MEDS: INSULIN ASPART (NovoLOG) 100 UNIT/ML VIAL SQ SCH ×4 (08:02→20:34)
[2021-09-17] MEDS: FAMOTIDINE 20 MG TAB PO SCH (08:08)
[2021-09-17] MEDS: APIXABAN 5 MG TAB PO SCH ×2 (08:08→20:34)
[2021-09-17] MEDS: metFORMIN 500 MG TAB PO SCH (08:08)
[2021-09-17] MEDS: METOPROLOL TARTRATE 25 MG TAB PO SCH (08:08)
--- NOTE | 2021-09-17 09:41 | P.PN ---
Subjective Progress Note Date: 09/17/21 Principal diagnosis: Right hip osteoarthritis Patient seen at bedside this morning resting comfortably lying semirecumbent in bed. Patient says he is still having right hip pain over the incision. He says when he does get up most of the pain is localized to his right hip. At this time patient is agreeable to discharge to rehab. Patient says he has not had bowel movement yet, however, patient says he has been passing gas. Patient denies chest pain, fever, shortness breath, nausea, vomiting, change in vision, loss of bowel/bladder control. Objective - Vital Signs Vital signs: Vital Signs Temp 97.7 F 09/17/21 08:13 Pulse 128 H 09/17/21 08:13 Resp 18 09/17/21 08:13 BP 111/73 09/17/21 08:13 Pulse Ox 97 09/17/21 08:13 Intake & Output 09/16/21 09/17/21 09/17/21 18:59 06:59 18:59 Other: Voiding Method Urinal # Voids 2 4 - Exam Right hip: Incision is clean, dry, and intact. The mesh tape is in good condition. There is minimal soft tissue swelling and ecchymosis surrounding the medial and lateral aspects of the incision. Calf is soft, no tenderness with palpation. Plantar flexion, dorsiflexion, EHL, FHL are intact. Sensory exam to light touch throughout the extremity is intact, dorsal pedis pulses 2+. - Labs CBC & Chem 7: 09/16/21 04:55 Labs: Abnormal Lab Results - Last 24 Hours (Table) 09/16/21 09/16/21 09/16/21 Range/Units 11:48 16:45 20:23 POC Glucose (mg/dL) 180 H 182 H 168 H (75-99) mg/dL 09/17/21 Range/Units 07:14 POC Glucose (mg/dL) 139 H (75-99) mg/dL Assessment and Plan Assessment: Right hip osteoarthritis Postoperative day 2 status post right total hip arthroplasty Plan: 1. Right hip osteoarthritis - right total hip arthroplasty performed 09/15/2021. Patient stable at bedside this morning. 2. Appreciate medical management 3. Pain management - sending Tramadol to rehab 4. DVT prophylaxis - Eliquis 5. GI prophylaxis - senna; Colace to rehab 6. Encourage incentive spirometer use 7. PT/OT - weightbearing as tolerated with walker for assistance 8. Discharge planning - plan discharge to [facility] today, , 09/17/2021 Time with Patient: Less than 30
[2021-09-17] MEDS: METOPROLOL TARTRATE 50 MG TAB PO SCH ×3 (09:59→20:34)
--- NOTE | 2021-09-17 10:05 | P.DS ---
Providers Date of admission: 09/15/2021 Expected date of discharge: 09/17/21 Attending physician: Wilfrido Babb Consults: 09/15/21 12:32 Consult Physician Routine Consulting Provider: Maciej Barnard Reason/Comments: medical management Do you want consulting provider notified?: Yes Primary care physician: Ronald Waite [facility] Course: Date of admission: 09/15/2021 Date of discharge: 09/17/2021 Admission diagnosis: Right hip osteoarthritis Discharge diagnosis: Same Attending physician: Dr. Babb Surgical procedures: Right total hip arthroplasty Brief history: Patient is a 75-year-old male with a history of progressive primary right hip osteoarthritis. At this point patient has failed conservative treatment measures and has opted to proceed with a elective right total hip arthroplasty. Hospital course: Details of patient's surgery can be found in operative report. Patient tolerated the procedure well and was subsequently transported to orthopedic floor. Patient's orthopeidc and medical care was provided daily. Patient had daily laboratory tests performed for evaluation of overall blood counts. Patient had daily physical therapy to include strengthening range of motion as well as education with walker ambulation. Patient was treated with Eliquis for their postoperative DVT prophylaxis during their inpatient stay. Patient was noted to have a relatively uneventful postoperative course. Patient reported satisfactory pain control with oral pain medications by postoperative day 2. Patient showed satisfactory progress with physical therapy. Patient moved steadily through the program and had no difficulty meeting the goals by postoperative day 2. Given patient's otherwise satisfactory course and having met physical therapy goals, plan is to discharge patient to rehab on postoperative day 2. Discharge condition/disposition: Patient will be discharged to rehab in stable condition. Discharge medications: Instructions are given on resumption of patient's normal daily medications per primary care recommendation, in addition patient will be prescribed Tramadol; Colace; to continue Eliqus 5 mg BID for DVT ppx. Discharge instructions: 1. Wound care and infection precautions, keep incision dry and covered while showering, no lotions, creams, moisturizers. No soaking, tubs, pools, hottubs. Do not scrub over the incision. 2. Weight-bear as tolerated with walker / cane until follow-up. 3. Ice and elevate when necessary. Do not exceed 20 minutes per hour with ice pack. 4. Utilize compression sleeve until seen at first follow up appointment. 5. Visiting nursing care. 6. Home physical therapy. 7. Pain meds and anticoagulants per prescription. 8. Pain medication has potential to cause constipation. Increase oral fluid and fiber intake. Contact primary care provider if you have not had a bowel movement within 48 hours after discharge 9. No anti-inflammatory medication until discussed at first post operative visit, this including Motrin, Aleve, Mobic, Diclofenac. 10. Follow up in office at [address] with Mathew Way PA-C / Maverick Bowen PA-C 11. Follow up with your primary care doctor 7-10 days after discharge. 12. Contact [facility] with any questions, . Keep mesh tape on until follow-up appointment in office in 2 weeks. While showering, cover mesh with Saran wrap. Medications: Tramadol; Colace; continue Eliquis 5 mg BID for DVT ppx Assessment: Right hip osteoarthritis Procedures: Right total hip arthroplasty Patient Condition at Discharge: Good Plan - Discharge Summary Discharge Rx Participant: No New Discharge Prescriptions: New traMADol HCl [Ultram] 50 mg PO Q6H PRN #24 tab PRN Reason: Pain Docusate [Colace] 100 mg PO DAILY #30 capsule No Action hydroCHLOROthiazide [Hydrodiuril] 50 mg PO DAILY metFORMIN HCL [Glucophage] 500 mg PO BID Simvastatin 20 mg PO HS Apixaban [Eliquis] 5 mg PO BID #60 tab Amiodarone [Cordarone] 200 mg PO HS Levothyroxine Sodium 125 mcg PO QAM Discharge Medication List hydroCHLOROthiazide [Hydrodiuril] 50 mg PO DAILY 07/11/15 [History] metFORMIN HCL [Glucophage] 500 mg PO BID 07/11/15 [History] Levothyroxine Sodium 125 mcg PO QAM 06/16/21 [History] Simvastatin 20 mg PO HS 06/16/21 [History] Apixaban [Eliquis] 5 mg PO BID #60 tab 06/17/21 [Rx] Amiodarone [Cordarone] 200 mg PO HS 07/08/21 [History] Docusate [Colace] 100 mg PO DAILY #30 capsule 09/17/21 [Rx] traMADol HCl [Ultram] 50 mg PO Q6H PRN #24 tab 09/17/21 [Rx] Follow up Appointment(s)/Referral(s): Maverick Bowen, AUGUST [PHYSICIAN AREA CAPTAIN] - 2 Weeks Activity/Diet/Wound Care/Special Instructions: Orthopedic Discharge Instructions: 1. Wound care and infection precautions, keep incision dry and covered while showering, no lotions, creams, moisturizers. No soaking, pools, hot tubs. Do not scrub over incision. 2. Weight-bear as tolerated with walker / cane until follow-up. 3. Ice and elevate when necessary. Do not exceed 20 minutes per hour with ice pack. 4. Utilize compression sleeve until seen at first follow up appointment. 5. Pain meds and anticoagulants per prescription. 6. Pain medication has potential to cause constipation. Increase oral fluid and fiber intake. Contact primary care provider if you have not had a bowel movement within 48 hours after discharge. 7. No anti-inflammatory medication until discussed at first post operative visit, this including Motrin, Aleve, Mobic, Diclofenac. 8. Follow up in office at [address] Mathew Way PA-C/Maverick Bowen PA-C 9. Follow up with your primary care doctor 7-10 days after discharge. 10. Contact [facility] with any questions, . Keep mesh tape on until follow-up appointment in office in 2 weeks. While showering, cover mesh with Saran wrap. Medications: Tramadol; Colace; continue Eliquis 5 mg BID for DVT ppx Discharge Disposition: TRANSFER TO SNF/ECF
[2021-09-17 11:53] LABS: Glucose,Whole Blood 188 mg/dL (75-99)
[2021-09-17] MEDS: AMIODARONE 200 MG TAB PO SCH ×2 (12:19→20:34)
[2021-09-17 12:50] LABS: Basophils % (A) 0 %; Eosinophils # (A) 0.2 k/uL (0-0.7); Eosinophils % (A) 1 %; HCT 43.6 % (39.0-53.0); HGB 13.9 gm/dL (13.0-17.5); Lymphocytes # (A) 1.2 k/uL (1.0-4.8); Lymphocytes % (A) 9 %; MCH 27.9 pg (25.0-35.0); MCHC 31.8 g/dL (31.0-37.0); MCV 87.7 fL (80.0-100.0); Mean Platelet Volume 8.9; Monocytes % (A) 7 %; Neutrophils # (A) 11.2 k/uL (1.3-7.7); Neutrophils % (A) 82 %; Platelet Count 205 k/uL (150-450); RBC 4.97 m/uL (4.30-5.90); RDW 15.3 % (11.5-15.5); WBC 13.8 k/uL (3.8-10.6)
[2021-09-17 13:04] LABS: ALT 14 U/L (4-49); AST 41 U/L (17-59); African American GFR (CKD) 68 (>60 ml/min/1.73 sqM); Albumin 3.2 g/dL (3.5-5.0); Albumin/Globulin Ratio 1.2; Alkaline Phosphatase 66 U/L (38-126); Anion Gap 7 mmol/L; Blood Urea Nitrogen 25 mg/dL (9-20); Calcium 8.4 mg/dL (8.4-10.2); Carbon Dioxide 29 mmol/L (22-30); Chloride 100 mmol/L (98-107); Globulin 2.6 g/dL; Glucose 144 mg/dL (74-99); Non-African American GFR(CKD) 59 (>60 ml/min/1.73 sqM); Potassium 3.9 mmol/L (3.5-5.1); Sodium 136 mmol/L (137-145); Total Protein 5.8 g/dL (6.3-8.2)
[2021-09-17 13:22] LABS: T4, Free (Free Thyroxine) 4.08 ng/dL (0.78-2.19)
--- NOTE | 2021-09-17 14:22 | P.PN ---
Subjective Progress Note Date: 09/17/21 HISTORY OF PRESENT ILLNESS This is a 75-year-old male patient of Dr. Waite with a past medical history of COPD in the care of Dr. Sr, hypertension, hyperlipidemia, diabetes mellitus type 2, aortic stenosis, paroxysmal atrial fibrillation. Patient has been brought in the hospital under the care of Dr. Babb status post right hip arthroplasty completed yesterday. Patient has difficulty with heart rate control. He was apparently in the 130s all night, it was reported the patient received labetalol indoor/recovery. Patient was on able to get epidural due to heart rate being too high. Patient started on metoprolol tartrate 5 mg twice daily with stat dose now. Patient was a 2 person max assist this morning and will require rehab. When this was discussed patient states that he does not want to go to rehab and will be returning home. He has a cane and walker at home. 09/17: Patient is having intermittent confusion thought to be initially related to [place]. He is confused this morning trying to leave. Heart rate remains elevated at 130. Lopressor increased to 50 mg twice daily. CAT scan of the brain, urinalysis ordered as well as cardiac monitoring. Patient has been afebrile, heart rate 128, blood pressure 111/73, pulse ox 97% on room air. TSH 0.459, free T4 4 0.08, free T3 2 0.6. REVIEW OF SYSTEMS Constitutional: No fever, no chills, no night sweats. No weight change. No weakness, fatigue or lethargy. No daytime sleepiness. EENT: No headache. No blurred vision or double vision, no loss of vision. No loss of Hearing, no ringing in the ears, no dizziness. No nasal drainage or congestion. No epistaxis. No sore throat. Lungs: No shortness of breath, cough, no sputum production. No wheezing. Cardiovascular: No chest pain, no lower extremity edema. No palpitations. No paroxysmal nocturnal dyspnea. No orthopnea. No lightheadedness or dizziness. No syncopal episodes. Abdominal: No abdominal pain. No nausea, vomiting. No diarrhea. No constipation. No bloody or tarry stools.. No loss of appetite. Genitourinary: No dysuria, increased frequency, urgency. No urinary retention. Musculoskeletal: No myalgias. No muscle weakness, no gait dysfunction, no frequent falls. No back pain. No neck pain. Right hip discomfort. Integumentary: No wounds, no lesions. No rash or pruritus. No unusual bruising. No change in hair or nails. Neurologic: No aphasia. No facial droop. No change in mentation. No head injury. No headache. No paralysis. No paresthesia. Psychiatric: No depression. No anxiety. No mood swings. Endocrine: No abnormal blood sugars. No weight change. PHYSICAL EXAMINATION Gen: This is a 75-year-old male, seated in chair and appears to be at no acute distress at rest. HEENT: Head is atraumatic, normocephalic. Pupils equal, round. Sclerae is a nicteric. NECK: Supple. No JVD. No lymphadenopathy. No thyromegaly. LUNGS: Clear to auscultation. No wheezes or rhonchi. No intercostal retractions. HEART: Regular rate and rhythm. Systolic murmur. Tachycardic. ABDOMEN: Soft. Bowel sounds are present. No masses. No tenderness. EXTREMITIES: No pedal edema. No calf tenderness. Dorsalis pedis palpable bilaterally. Small dressing in place to the right hip. NEUROLOGICAL: Patient is awake, alert and oriented x3. Cranial nerves 2 through 12 are grossly intact. ASSESSMENT AND PLAN 1. Osteoarthritis status post right total hip arthroplasty 09/[address] Babb. Continue current management per orthopedics, PT, OT, pain management, incentive spirometry to reduce incidence of atelectasis and hospital-acquired pneumonia. 2. Paroxysmal onset atrial fibrillation with RVR. Patient continued on amiodarone 200 mg at bedtime, eliquis 5 mg twice daily, Lopressor added 25 mg twice daily added. 2. Hypertension. Benazepril 40 mg at bedtime, amlodipine 5 mg daily and hydrochlorothiazide 50 mg daily. 3. Hyperlipidemia. Continue Lipitor 10 mg at bedtime. 4. Diabetes mellitus type 2. Continue metformin 500 mg twice daily and NovoLog scale before meals and at bedtime. 5. Hypothyroidism. Continue levothyroxine 125 g daily. 6. COPD, stable without exacerbation. 7. DVT prophylaxis. Eliquis. 8. GI prophylaxis. Pepcid. 9. COVID-19 testing negative. Patient has been hospitalized during a pandemic. DISCHARGE PLAN Subacute rehab at [facility]. Impression and plan of care have been directed as dictated by the signing physician. Rosanna Davis nurse practitioner acting as scribe for signing physician. Objective - Vital Signs Vital signs: Vital Signs Temp 97.7 F 09/17/21 08:13 Pulse 128 H 09/17/21 08:13 Resp 18 09/17/21 08:13 BP 111/73 09/17/21 08:13 Pulse Ox 97 09/17/21 08:13 Intake & Output 09/16/21 09/17/21 09/17/21 18:59 06:59 18:59 Intake Total 236 Balance 236 Intake: Oral 236 Other: Voiding Method Urinal # Voids 2 4 - Labs CBC & Chem 7: 09/17/21 12:17 09/17/21 12:17 Labs: Abnormal Lab Results - Last 24 Hours (Table) 09/16/21 09/16/21 09/16/21 Range/Units 11:48 16:45 20:23 POC Glucose (mg/dL) 180 H 182 H 168 H (75-99) mg/dL 09/17/21 Range/Units 07:14 POC Glucose (mg/dL) 139 H (75-99) mg/dL
--- NOTE | 2021-09-17 15:09 | CT ---
EXAMINATION TYPE: CT brain wo/w con DATE OF EXAM: 09/17/2021 COMPARISON: CT brain July 11, 2015 HISTORY: Mental status changes. CT DLP: 2282.4 mGycm Automated exposure control for dose reduction was used. CONTRAST: CT scan of the head is performed without and with IV Contrast, patient injected with 80 mL of Isovue 300. FINDINGS: Noncontrast images show no acute intracranial hemorrhage or midline shift. Mild to moderate ventricul ar and sulcal prominence. Mild to moderate low-attenuation in the periventricular white matter is mor e prominent from 2015 study. Postcontrast images show no suspicious enhancing intraparenchymal masses . Dependent fluid in the left sphenoid sinus is now present. IMPRESSION: [id number] diffuse cerebral atrophy and chronic small vessel ischemic change with s ome interval degenerative progression from 2015 study. No abnormal enhancing masses. New Left sided a cute sphenoid sinusitis felt present, correlate clinically.
[2021-09-17 15:54] LABS: Glucose,Whole Blood 142 mg/dL (75-99)
[2021-09-17 16:42] LABS: Glucose,Whole Blood 144 mg/dL (75-99)
--- NOTE | 2021-09-17 16:49 | XR ---
EXAMINATION TYPE: XR Hip Limited RT DATE OF EXAM: 09/17/2021 CLINICAL HISTORY: Right hip pain after fall injury today. Hip replacement surgery 2 days ago. TECHNIQUE: Single AP portable view of right hip is obtained immediately postoperatively. COMPARISON: Prior right hip x-ray 2 days ago.. FINDINGS: Metallic hardware from right hip arthroplasty is seen and remains satisfactory in alignment and position. No periprosthetic acute displaced fracture on single view. Moderate medial groin jamison rial vascular calcification is redemonstrated. IMPRESSION: As above.
[2021-09-17 20:21] LABS: Glucose,Whole Blood 169 mg/dL (75-99)
[2021-09-17] MEDS: ATORVASTATIN 10 MG TAB PO SCH (20:34)
[2021-09-17] MEDS: SENNOSIDES-DOCUSATE SODIUM 1 EACH TAB PO SCH (20:34)
[2021-09-17] MEDS ORDERED: MELATONIN 3 MG TABLET PO SCH (21:00)
[2021-09-18] MEDS ORDERED: LEVOTHYROXINE 88 MCG TAB PO SCH (06:30)
[2021-09-18 07:05] LABS: Appearance,Urine Clear (Clear); Bilirubin,Urine Negative (Negative); Blood,Urine Negative (Negative); Color,Urine Yellow; Glucose,Urine (UA) Negative (Negative); Ketones,Urine 1+ (Negative); Leukocyte Esterase,Urine Negative (Negative); Nitrite,Urine Negative (Negative); PH, Urine 5.5 (5.0-8.0); Protein,Urine Trace (Negative); Specific Gravity,Urine 1.035 (1.001-1.035)
[2021-09-18] MEDS: LACTATED RINGERS 1,000 ML IV SCH (07:08)
[2021-09-18 07:12] LABS: Glucose,Whole Blood 135 mg/dL (75-99)
[2021-09-18] MEDS: METOPROLOL TARTRATE 50 MG TAB PO SCH (07:34)
[2021-09-18] MEDS: APIXABAN 5 MG TAB PO SCH (07:34)
[2021-09-18] MEDS: FAMOTIDINE 20 MG TAB PO SCH (07:34)
[2021-09-18] MEDS: INSULIN ASPART (NovoLOG) 100 UNIT/ML VIAL SQ SCH ×2 (07:35→12:05)
[2021-09-18] MEDS: AMIODARONE 200 MG TAB PO SCH (07:35)
[2021-09-18] MEDS ORDERED: methIMAzole 5 MG TAB PO SCH (09:00)
[2021-09-18] MEDS ORDERED: METOPROLOL TARTRATE 25 MG TAB PO STA (09:04)
[2021-09-18 09:56] VITALS: RESP 17
--- NOTE | 2021-09-18 09:59 | P.CRDCN ---
History of Present Illness Consult date: 09/18/21 History of present illness: HISTORY OF PRESENT ILLNESS: This is a 75-year-old male with a past medical history significant for aortic stenosis, paroxysmal atrial fibrillation fibrillation, hypertension, and hyperlipidemia. Patient follows in the office with Dr. Mcarthur. We have been asked to see the patient in consultation for tachycardia. Patient examined at the bedside. Patient is s/p right total hip arthoplasty secondary to osteoarthritis. Patient went into A. fib with RVR yesterday and cardiology was consulted. This morning, the patient is in atrial flutter with a heart rate around 120. Patient denies chest pain or pressure. Denies shortness of breath. Denies palpitations. Laboratory data: WBC 13.8. Hemoglobin 13.9. Platelet count 205. Sodium 136. Potassium 3.9. BUN 25. Creatinine 1.18. TSH 0.459. Free T4 4.08. Free T3 2.6. Current home cardiac medications include Eliquis 5 mg twice a day, amiodarone 200 mg at night, hydrochlorothiazide 50 mg daily, simvastatin 20 mg at night Most recent echocardiogram obtained in June 2021 revealed ejection fraction 50-55%, moderate aortic stenosis, trace mitral regurgitation, and mild tricuspid regurgitation REVIEW OF SYSTEMS: At the time of my exam: CONSTITUTIONAL: Denies fever or chills. HEENT: Denies blurred vision, vision changes, or eye pain. Denies hemoptysis CARDIOVASCULAR: Denies chest pain. Denies orthopnea. Denies PND. Denies palpitations RESPIRATORY: Denies shortness of breath. GASTROINTESTINAL: Denies abdominal pain. Denies nausea or vomiting. HEMATOLOGIC: Denies bleeding disorders. GENITOURINARY: Denies any blood in urine. SKIN: Denies pruitis. Denies rash. PHYSICAL EXAM: VITAL SIGNS: Reviewed. GENERAL: Well-developed in no acute distress. HEENT: Head is normocephalic. Pupils are equal, round. Sclerae anicteric. Mucous membranes of the mouth are moist. Neck supple. No JVD or thyromegaly LUNGS: Respirations even and unlabored. Lungs essentially clear to auscultation bilaterally. HEART: Tachycardic. Regular rate and rhythm. S1 and S2 heard. Systolic murmur noted. ABDOMEN: Soft. Nondistended. Nontender. EXTREMITIES: Normal range of motion. No clubbing or cyanosis. Peripheral pulse s intact. No lower extremity edema NEUROLOGIC: Awake and alert. Oriented x 3. ASSESSMENT: S/P right total hip arthroplasty Paroxysmal atrial fibrillation/typical atrial flutter with RVR, anticoagulated with Eliquis Hypertension Hyperlipidemia Moderate aortic stenosis History of hypothyroidism with abnormal TSH PLAN: Continue current cardiac medications Increase metoprolol to 75mg BID. Give additional 25mg now. Discontinue synthroid per Dr. Pierce. Recheck TSH outpatient Continue telemetry monitoring Further recommendations pending patient course Nurse practitioner note has been reviewed by physician. Signing provider agrees with the documented findings, assessment, and plan of care. Past Medical History Past Medical History: Atrial Fibrillation, Diabetes Mellitus, Hearing Disorder / Deafness, Hyperlipidemia, Hypertension, Thyroid Disorder Additional Past Medical History / Comment(s): Ringing in ears, slightly hard of hearing,. back pain History of Any Multi-Drug Resistant Organisms: None Reported Past Surgical History: Bariatric Surgery, Cardiac Ablation, Tonsillectomy Additional Past Surgical History / Comment(s): Lap band February 2010, thryoidectomy 2010. Past Anesthesia/Blood Transfusion Reactions: No Reported Reaction Past Psychological History: No Psychological Hx Reported Smoking Status: Former smoker Past Alcohol Use History: Rare Additional Past Alcohol Use History / Comment(s): Quit smoking "yrs and yrs ago". Past Drug Use History: None Reported - Past Family History Father Family Medical History: Cancer, Hyperlipidemia Additional Family Medical History / Comment(s): Enlarged heart, skin cancer. Medications and Allergies Home Medications Medication Instructions Recorded Confirmed Type hydroCHLOROthiazide [Hydrodiuril] 50 mg PO DAILY 07/11/15 09/09/21 History metFORMIN HCL [Glucophage] 500 mg PO BID 07/11/15 09/09/21 History Levothyroxine Sodium 125 mcg PO QAM 06/16/21 09/09/21 History Simvastatin 20 mg PO HS 06/16/21 09/09/21 History Apixaban [Eliquis] 5 mg PO BID #60 tab 06/17/21 09/14/21 Rx Amiodarone [Cordarone] 200 mg PO HS 07/08/21 09/14/21 History Docusate [Colace] 100 mg PO DAILY #30 capsule 09/17/21 Rx traMADol HCl [Ultram] 50 mg PO Q6H PRN #24 tab 09/17/21 Rx Allergies Allergy/AdvReac Type Severity Reaction Status Date / Time No Known Allergies Allergy Verified 09/15/21 10:05 Physical Exam Vitals: Vital Signs Temp Pulse Resp BP Pulse Ox 09/18/21 02:09 122 H 16 129/75 96 09/17/21 20:24 120 H 18 116/76 97 09/17/21 20:00 110 H 09/17/21 15:50 98 F 129 H 16 128/83 98 09/17/21 14:00 97.9 F 130 H 16 120/79 98 Intake and Output 09/17/21 09/18/21 09/18/21 22:59 06:59 14:59 Intake Total 366 300 Output Total 200 Balance 366 100 Intake: Oral 366 300 Output: Urine 200 Results 09/17/21 12:17 09/17/21 12:17 Cardiac Enzymes 09/17/21 Range/Units 12:17 AST 41 (17-59) U/L CBC 09/17/21 Range/Units 12:17 WBC 13.8 H (3.8-10.6) k/uL RBC 4.97 (4.30-5.90) m/uL Hgb 13.9 (13.0-17.5) gm/dL Hct 43.6 (39.0-53.0) % Plt Count 205 (150-450) k/uL Comprehensive Metabolic Panel 09/17/21 Range/Units 12:17 Sodium 136 L (137-145) mmol/L Potassium 3.9 (3.5-5.1) mmol/L Chloride 100 (98-107) mmol/L Carbon Dioxide 29 (22-30) mmol/L BUN 25 H (9-20) mg/dL Creatinine 1.18 (0.66-1.25) mg/dL Glucose 144 H (74-99) mg/dL Calcium 8.4 (8.4-10.2) mg/dL AST 41 (17-59) U/L ALT 14 (4-49) U/L Alkaline Phosphatase 66 (38-126) U/L Total Protein 5.8 L (6.3-8.2) g/dL Albumin 3.2 L (3.5-5.0) g/dL Current Medications Generic Name Dose Route Start Last Admin Trade Name Freq PRN Reason Stop Dose Admin Acetaminophen 650 mg 09/15/21 12:32 Acetaminophen Tab 325 Mg Tab PO 10/15/21 12:33 Q4HR PRN Pain Scale 1 to 5 Amiodarone HCl 200 mg 09/17/21 12:15 09/18/21 07:35 Amiodarone 200 Mg Tab PO 200 mg BID CAREN Administration Apixaban 5 mg 09/16/21 09:00 09/18/21 07:34 Apixaban 5 Mg Tab PO 5 mg BID CAREN Administration Protocol Atorvastatin Calcium 10 mg 09/15/21 21:00 09/17/21 20:34 Atorvastatin 10 Mg Tab PO 10 mg HS CAREN Administration Famotidine 20 mg 09/16/21 09:00 09/18/21 07:34 Famotidine 20 Mg Tab PO 10/16/21 09:01 20 mg DAILY CAREN Administration Hydrochlorothiazide 50 mg 09/16/21 09:00 09/18/21 07:35 Hydrochlorothiazide 50 Mg Tab PO 50 mg DAILY CAREN Administration Lactated Ringer's 1,000 mls @ 20 mls/hr 09/15/21 05:44 09/18/21 07:08 Lactated Ringers IV 10/15/21 05:45 Not Given .Q24H CAREN Insulin Aspart 0 unit 09/16/21 17:30 09/18/21 07:35 Insulin Aspart (Novolog) 100 Unit/Ml Vial SQ 1 unit ACHS CAREN Administration Protocol Lidocaine HCl 0.1 ml 09/15/21 05:44 Lidocaine 1% (10mg/Ml) For Iv Start INTRADERMA 10/15/21 05:45 PER PROTOCOL PRN IV Start Magnesium Hydroxide 2,400 mg 09/15/21 12:32 Magnesium Hydroxide 2,400 Mg/10 Ml Cup PO 10/15/21 12:33 DAILY PRN Constipation Melatonin 6 mg 09/17/21 21:00 09/17/21 21:51 Melatonin 3 Mg Tablet PO 6 mg HS CAREN Administration Metoprolol Tartrate 75 mg 09/18/21 21:00 Metoprolol Tartrate 25 Mg Tab PO BID CAREN Naloxone HCl 0.2 mg 09/15/21 12:32 Naloxone 0.4 Mg/Ml 1 Ml Vial IV 10/15/21 12:33 Q2M PRN Opioid Reversal Ondansetron HCl 4 mg 09/15/21 12:32 Ondansetron 4 Mg/2 Ml Vial IVP 10/15/21 12:33 DAILY PRN Nausea And Vomiting Senna/Docusate Sodium 2 each 09/15/21 21:00 09/17/21 20:34 Sennosides-Docusate Sodium 1 Each Tab PO 10/15/21 21:01 2 each HS CAREN Administration Intake and Output 09/17/21 09/18/21 09/18/21 22:59 06:59 14:59 Intake Total 366 300 Output Total 200 Balance 366 100 Intake: Oral 366 300 Output: Urine 200 09/17/21 12:17 09/17/21 12:17
--- NOTE | 2021-09-18 10:28 | P.DS ---
Providers Date of admission: 09/18/21 08:52 Expected date of discharge: 09/18/21 Attending physician: Ashleigh Deleno Consults: 09/15/21 12:32 Consult Physician Routine Consulting Provider: Wilfrido Babb Consult Reason/Comments: TRH Do you want consulting provider notified?: Already Contacted 09/17/21 11:33 Consult Physician Routine Consulting Provider: Barber Penn Consult Reason/Comments: tachy Do you want consulting provider notified?: Yes Primary care physician: Ronald Waite [facility] Course: HISTORY OF PRESENT ILLNESS This is a 75-year-old male patient of Dr. Waite with a past medical history of COPD in the care of Dr. Sr, hypertension, hyperlipidemia, diabetes mellitus type 2, aortic stenosis, paroxysmal atrial fibrillation. Patient has been brought in the hospital under the care of Dr. Babb status post right hip arthroplasty completed yesterday. Patient has difficulty with heart rate control. He was apparently in the 130s all night, it was reported the patient received labetalol indoor/recovery. Patient was on able to get epidural due to heart rate being too high. Patient started on metoprolol tartrate 5 mg twice daily with stat dose now. Patient was a 2 person max assist this morning and will require rehab. When this was discussed patient states that he does not want to go to rehab and will be returning home. He has a cane and walker at home. 09/17: Patient is having intermittent confusion thought to be initially related to [place]. He is confused this morning trying to leave. Heart rate remains elevated at 130. Lopressor increased to 50 mg twice daily. CAT scan of the brain, urinalysis ordered as well as cardiac monitoring. Patient has been afebrile, heart rate 128, blood pressure 111/73, pulse ox 97% on room air. TSH 0.459, free T4 4 0.08, free T3 2 0.6. 09/18: Patient has been seen by cardiology and amiodarone changed to 200 mg twice daily and Lopressor increased to 75 mg twice daily. We have changed her levothyroxine to 75 g daily. Patient is on eliquis 5 mg twice daily. Her rate is running a 220. The patient did have a fall last evening but had no injuries and did not hit his head. CAT scan of the brain performed yesterday showed mild to moderate diffuse cerebral atrophy and chronic small vessel ischemic change with some interval degenerative progression from 2015. No abnormal enhancing masses. New left sided acute sphenoid sinusitis. Patient will be discharged to rehab once cleared by cardiology. DISCHARGE DIAGNOSES 1. Osteoarthritis status post right total hip arthroplasty 09/[address] Babb. 2. Paroxysmal onset atrial fibrillation with RVR. 2. Hypertension. 3. Hyperlipidemia. 4. Diabetes mellitus type 2. 5. Hypothyroidism. 6. COPD, stable without exacerbation. 7. COVID-19 testing negative. Patient has been hospitalized during a pandemic. 8. Metabolic encephalopathy, CVA ruled out. Etiology possibly related to medication, hospitalization, underlying dementia not ruled out. DISCHARGE PLAN Subacute rehab at [facility] Greater than 35 minutes was utilized and coordinating patient's discharge. Impression and plan of care have been directed as dictated by the signing physician. Rosanna Davis nurse practitioner acting as scribe for signing physician. Assessment: Right hip osteoarthritis Patient Condition at Discharge: Good Plan - Discharge Summary Discharge Rx Participant: No New Discharge Prescriptions: New traMADol HCl [Ultram] 50 mg PO Q6H PRN #24 tab PRN Reason: Pain Levothyroxine Sodium 88 mcg PO AC-BRKFST #30 tablet Levothyroxine Sodium [Euthyrox] 75 mcg PO AC-BRKFST #30 tablet Metoprolol Tartrate [Lopressor] 75 mg PO BID tab Acetaminophen Tab [Tylenol] 650 mg PO Q4HR PRN tab PRN Reason: Pain Scale 1 To 5 Docusate [Colace] 100 mg PO DAILY #30 capsule Melatonin 6 mg PO HS tablet Continue hydroCHLOROthiazide [Hydrodiuril] 50 mg PO DAILY metFORMIN HCL [Glucophage] 500 mg PO BID Simvastatin 20 mg PO HS Apixaban [Eliquis] 5 mg PO BID #60 tab Changed Amiodarone [Cordarone] 200 mg PO BID #0 Discontinued Levothyroxine Sodium 125 mcg PO QAM Discharge Medication List hydroCHLOROthiazide [Hydrodiuril] 50 mg PO DAILY 07/11/15 [History] metFORMIN HCL [Glucophage] 500 mg PO BID 07/11/15 [History] Simvastatin 20 mg PO HS 06/16/21 [History] Apixaban [Eliquis] 5 mg PO BID #60 tab 06/17/21 [Rx] Docusate [Colace] 100 mg PO DAILY #30 capsule 09/17/21 [Rx] traMADol HCl [Ultram] 50 mg PO Q6H PRN #24 tab 09/17/21 [Rx] Acetaminophen Tab [Tylenol] 650 mg PO Q4HR PRN tab 09/18/21 [Rx] Amiodarone [Cordarone] 200 mg PO BID #0 09/18/21 [Rx] Levothyroxine Sodium [Euthyrox] 75 mcg PO AC-BRKFST #30 tablet 09/18/21 [Rx] Melatonin 6 mg PO HS tablet 09/18/21 [Rx] Metoprolol Tartrate [Lopressor] 75 mg PO BID tab 09/18/21 [Rx] Follow up Appointment(s)/Referral(s): [facility] [Provider Group] - 10/12/21 10:15 am Maverick Bowen PAC [PHYSICIAN INSPECTORS AND REGULATORY OFFICERS] - 10/01/21 11:30 am Ronald Waite MD [Primary Care Provider] - 1 Week (AFTER DISCHARGE FROM REHAB) Ambulatory/Diagnostic Orders: T4, Free (Free Thyroxine) [LAB.AMB] Location: None Selected TSH, 3rd Generation [LAB.AMB] Location: None Selected Activity/Diet/Wound Care/Special Instructions: Orthopedic Discharge Instructions: 1. Wound care and infection precautions, keep incision dry and covered while showering, no lotions, creams, moisturizers. No soaking, pools, hot tubs. Do not scrub over incision. 2. Weight-bear as tolerated with walker / cane until follow-up. 3. Ice and elevate when necessary. Do not exceed 20 minutes per hour with ice pack. 4. Utilize compression sleeve until seen at first follow up appointment. 5. Pain meds and anticoagulants per prescription. 6. Pain medication has potential to cause constipation. Increase oral fluid and fiber intake. Contact primary care provider if you have not had a bowel movement within 48 hours after discharge. 7. No anti-inflammatory medication until discussed at first post operative visit, this including Motrin, Aleve, Mobic, Diclofenac. 8. Follow up in office at [address] with [address]w [address] PA-C/Maverick Bowen PA-C 9. Follow up with your primary care doctor 7-10 days after discharge. 10. Contact [facility] with any questions, . Keep mesh tape on until follow-up appointment in office in 2 weeks. While showering, cover mesh with Saran wrap. Medications: Tramadol; Colace; continue Eliquis 5 mg BID for DVT ppx Discharge Disposition: TRANSFER TO SNF/ECF
--- NOTE | 2021-09-18 10:48 | P.PN ---
Subjective Progress Note Date: 09/18/21 Principal diagnosis: Right hip osteoarthritis Patient seen at bedside this morning resting comfortably lying semirecumbent in bed. Patient says he is still having right hip pain over the incision. He says when he does get up most of the pain is localized to his right hip. At this time patient is agreeable to discharge to rehab. Patient says he has not had bowel movement yet, however, patient says he has been passing gas. Patient denies chest pain, fever, shortness breath, nausea, vomiting, change in vision, loss of bowel/bladder control. Objective - Vital Signs Vital signs: Vital Signs Temp 97.9 F 09/18/21 08:17 Pulse 80 09/18/21 08:17 Resp 17 09/18/21 08:17 BP 104/64 09/18/21 08:17 Pulse Ox 96 09/18/21 08:17 Intake & Output 09/17/21 09/18/21 09/18/21 18:59 06:59 18:59 Intake Total 838 300 180 Output Total 200 Balance 838 100 180 Intake: Oral 838 300 180 Output: Urine 200 - Exam Right hip: Incision is clean, dry, and intact. The mesh tape is in good condition. There is minimal soft tissue swelling and ecchymosis surrounding the medial and lateral aspects of the incision. Calf is soft, no tenderness with palpation. Plantar flexion, dorsiflexion, EHL, FHL are intact. Sensory exam to light touch throughout the extremity is intact, dorsal pedis pulses 2+. - Labs CBC & Chem 7: 09/17/21 12:17 09/17/21 12:17 Labs: Abnormal Lab Results - Last 24 Hours (Table) 09/17/21 09/17/21 09/17/21 Range/Units 11:51 12:17 12:17 WBC 13.8 H (3.8-10.6) k/uL Neutrophils # 11.2 H (1.3-7.7) k/uL Sodium 136 L (137-145) mmol/L BUN 25 H (9-20) mg/dL Glucose 144 H (74-99) mg/dL POC Glucose (mg/dL) 188 H (75-99) mg/dL Total Protein 5.8 L (6.3-8.2) g/dL Albumin 3.2 L (3.5-5.0) g/dL TSH 0.459 L (0.465-4.680) mIU/L Free T4 4.08 H (0.78-2.19) ng/dL Free T3 pg/mL 2.6 L (2.8-5.3) pg/ml Urine Protein (Negative) Urine Ketones (Negative) 09/17/21 09/17/21 09/17/21 Range/Units 15:51 16:41 20:20 WBC (3.8-10.6) k/uL Neutrophils # (1.3-7.7) k/uL Sodium (137-145) mmol/L BUN (9-20) mg/dL Glucose (74-99) mg/dL POC Glucose (mg/dL) 142 H 144 H 169 H (75-99) mg/dL Total Protein (6.3-8.2) g/dL Albumin (3.5-5.0) g/dL TSH (0.465-4.680) mIU/L Free T4 (0.78-2.19) ng/dL Free T3 pg/mL (2.8-5.3) pg/ml Urine Protein (Negative) Urine Ketones (Negative) 09/18/21 09/18/21 Range/Units 06:30 07:10 WBC (3.8-10.6) k/uL Neutrophils # (1.3-7.7) k/uL Sodium (137-145) mmol/L BUN (9-20) mg/dL Glucose (74-99) mg/dL POC Glucose (mg/dL) 135 H (75-99) mg/dL Total Protein (6.3-8.2) g/dL Albumin (3.5-5.0) g/dL TSH (0.465-4.680) mIU/L Free T4 (0.78-2.19) ng/dL Free T3 pg/mL (2.8-5.3) pg/ml Urine Protein Trace H (Negative) Urine Ketones 1+ H (Negative) Assessment and Plan Assessment: Right hip osteoarthritis Postoperative day 3 status post right total hip arthroplasty Plan: 1. Right hip osteoarthritis - right total hip arthroplasty performed 09/15/2021. Patient stable at bedside this morning. Patient orthopedically stable for discharge to [facility]. Orthopedics is signing off at this time. Please do not hesitate to contact us for any further questions. Discharge per medicine 2. Appreciate medical management 3. Pain management - sending Tramadol to rehab 4. DVT prophylaxis - Eliquis 5. GI prophylaxis - senna; Colace to rehab 6. Encourage incentive spirometer use 7. PT/OT - weightbearing as tolerated with walker for assistance 8. Discharge planning - plan discharge to [facility]. Discharge per medical team Time with Patient: Less than 30
[2021-09-18 11:19] LABS: Glucose,Whole Blood 276 mg/dL (75-99)
[2021-09-18 15:34] VITALS: BP 110/73; PULSE 127; TEMP 98.4
[2021-09-18] MEDS ORDERED: METOPROLOL TARTRATE 25 MG TAB PO SCH (21:00)
== END 2021-09-18 16:13 | DRG 469 ==
LOC: OR 09:15 → 4SSUR 14:02 → OR 09-17 13:16 → 4SSUR 09-17 15:29 → OBSVTOIN 09-18 08:52
PROVIDERS: ADMIT Family Medicine; ATTEND Family Medicine
PROC: 0SR90JZ Replacement of Right Hip Joint with Synthetic Substitute, Open Approach (ICD-10-PCS; principal; 2021-09-15 10:30)
DX: M16.11 Unilateral primary osteoarthritis, right hip (principal); G93.41 Metabolic encephalopathy; I48.3 Typical atrial flutter; E03.9 Hypothyroidism, unspecified; E11.9 Type 2 diabetes mellitus without complications; E78.5 Hyperlipidemia, unspecified; H91.90 Unspecified hearing loss, unspecified ear; I10 Essential (primary) hypertension; I35.0 Nonrheumatic aortic (valve) stenosis; I48.0 Paroxysmal atrial fibrillation; J44.9 Chronic obstructive pulmonary disease, unspecified; Z20.822 Contact with and (suspected) exposure to COVID-19; Z79.01 Long term (current) use of anticoagulants; Z79.84 Long term (current) use of oral hypoglycemic drugs; Z79.899 Other long term (current) drug therapy; Z80.8 Family history of malignant neoplasm of other organs or systems; Z82.49 Family history of ischemic heart disease and other diseases of the circulatory system; Z82.5 Family history of asthma and other chronic lower respiratory diseases; Z87.891 Personal history of nicotine dependence
CPT/HCPCS: 70470; 73501; 80053; 81003; 84439; 84443; 84481; 85025; 86850; 86900; 86901; 87635; 88300; 93005

== ENCOUNTER 2022-04-12 10:17 | Day surgery (SDC) | payer MEDICARE ==
[2022-04-08 11:14] VITALS: BMI 32.9
[~2022-04-12 10:17] MED LIST changes: -ACETAMINOPHEN TAB 500 MG TAB PO PRN; -HYDROmorphone 0.5 MG/0.5 ML SYRINGE IVP PRN; -LIDOCAINE 1% (10MG/ML) FOR IV START INTRADERMA PRN; -MELOXICAM 7.5 MG TAB PO PRN; -ONDANSETRON 4 MG/2 ML VIAL IVP ONE; +SODIUM CHLORIDE 0.9% 1,000 ML IV SCH; -TRANEXAMIC ACID 1,000 MG in SODIUM CHLORIDE 0.9% 100 ML IVPB PRN
[2022-04-12] MEDS ORDERED: SODIUM CHLORIDE 0.9% 500 ML 500 ML IV ONE (10:28)
[2022-04-12 10:49] LABS: Glucose,Whole Blood 165 mg/dL (70-110)
[2022-04-12 11:06] VITALS: TEMP 97.7
[2022-04-12 11:20] LABS: Calcium 8.7 mg/dL (8.4-10.2); Potassium 4.4 mmol/L (3.5-5.1)
[2022-04-12] MEDS ORDERED: PROPOFOL 10 MG/ML 20 ML VIAL IV ONE (12:21)
--- NOTE | 2022-04-12 12:38 | P.PCN ---
Date of Procedure: 04/12/22 Operative Findings: Cardioversion Report Performing physician Tayo Mcarthur M.D. Procedure performed Successful cardioversion of atrial flutter to normal sinus mechanism using 200 J at first attempt Indication Symptomatic atrial flutter induced cardiomyopathy and uncontrolled internal of heart rate Complication None Level of sedation The procedure was performed under deep sedation using propofol with SENIOR APPLICATION SECURITY CONSULTANT in the room Procedure description After obtaining an informed consent the patient was brought to the recovery room. Sedation was introduced using propofol with SENIOR APPLICATION SECURITY CONSULTANT in the room. Subsequently the patient cardioverted from atrial flutter to normal sinus mechanism using 120 J and first attempt Conclusion Successful cardioversion of atrial flutter to normal sinus mechanism using 120 J Postprocedure management Continue the current medical regimen Continue oral anticoagulation Follow-up with the patient
[2022-04-12 12:44] VITALS: RESP 16
[2022-04-12 13:57] VITALS: BP 144/68; PULSE 76
== END 2022-04-12 14:15 | disposition home or self-care (01) ==
LOC: CATHCVL 10:17
PROVIDERS: ATTEND Internal Medicine Interventional Cardiology
DX: I48.92 Unspecified atrial flutter (principal); I42.8 Other cardiomyopathies; I48.0 Paroxysmal atrial fibrillation; I35.0 Nonrheumatic aortic (valve) stenosis; I10 Essential (primary) hypertension; I45.10 Unspecified right bundle-branch block; E78.5 Hyperlipidemia, unspecified; E11.9 Type 2 diabetes mellitus without complications; Z20.822 Contact with and (suspected) exposure to COVID-19; Z72.0 Tobacco use; Z79.01 Long term (current) use of anticoagulants; Z79.84 Long term (current) use of oral hypoglycemic drugs; Z79.890 Hormone replacement therapy; Z79.899 Other long term (current) drug therapy
CPT/HCPCS: 92960; 80048; 87635; J2704

== ENCOUNTER → 2022-09-27 | Outpatient (CLI) | payer MEDICARE ==
[2022-09-27 18:42] LABS: African American GFR (CKD) 64.1 (60.0-200.0); Anion Gap 10.4 mmol/L (10.00-18.00); Blood Urea Nitrogen 13.1 mg/dL (9.0-27.0); Carbon Dioxide 23.5 mmol/L (20.0-27.5); HCT 37.8 % (39.6-50.0); MCH 24.9 pg (27.0-32.0); MCHC 29.1 g/dL (32.0-37.0); MCV 85.5 fL (80.0-97.0); Mean Platelet Volume 11.7 fL (9.5-12.2); NRBC Per 100 WBC 0 /100 WBCS (0.0-0.0); Non-African American GFR(CKD) 55.3 (60.0-200.0); Platelet Count 255 X 10*3/uL (140-440); Potassium 4.5 mmol/L (3.5-5.5); RBC 4.42 X 10*6/uL (4.40-5.60); RDW 15.1 % (11.5-14.5); WBC 9.08 X 10*3/uL (4.50-10.00)
== END | disposition home or self-care (01) ==
LOC: LABPAT 11:48
PROVIDERS: ATTEND Internal Medicine Interventional Cardiology
DX: Z01.812 Encounter for preprocedural laboratory examination (principal); I25.10 Atherosclerotic heart disease of native coronary artery without angina pectoris; E78.1 Pure hyperglyceridemia
CPT/HCPCS: 80051; 82565; 84520; 85027

== ENCOUNTER 2022-11-10 07:00 | Inpatient (IN) | payer MEDICARE ==
[2022-11-05 09:00] LABS: Anisocytosis Slight; HCT 39.6 % (39.0-53.0); HGB 12.2 gm/dL (13.0-17.5); MCH 25.4 pg (25.0-35.0); MCHC 30.9 g/dL (31.0-37.0); MCV 82.2 fL (80.0-100.0); Mean Platelet Volume 8.3; Platelet Count 211 k/uL (150-450); RBC 4.81 m/uL (4.30-5.90); RDW 17.1 % (11.5-15.5); WBC 7.7 k/uL (3.8-10.6)
[2022-11-05 09:15] LABS: Calcium 8.8 mg/dL (8.4-10.2)
[2022-11-05 09:18] LABS: Partial Thromboplastin Time 24.4 sec (22.0-30.0); Prothrombin Time 10.9 sec (9.0-12.0)
[2022-11-10] MEDS ORDERED: SODIUM CHLORIDE 0.9% 1,000 ML IV ONE ×2 (07:36→11:48)
[2022-11-10 07:37] LABS: Glucose,Whole Blood 168 mg/dL (70-110)
[2022-11-10] MEDS ORDERED: PROTAMINE SULFATE 250 MG in EMPTY BAG 1 BAG IV PRN (08:00)
[2022-11-10] MEDS ORDERED: LACTATED RINGERS 1,000 ML IV SCH (08:00)
[2022-11-10] MEDS ORDERED: METOPROLOL TARTRATE 25 MG TAB PO ONE (08:00)
[2022-11-10] MEDS ORDERED: ELECTROLYTE-A SOLUTION 1,000 ML with POTASSIUM CHLORIDE 100 MEQ, MAGNESIUM SULFATE 16 M... IV PRN ×5 (08:00)
[2022-11-10] MEDS ORDERED: SODIUM CHLORIDE 0.9% 500 ML 500 ML INTRAARTER PRN (08:00)
[2022-11-10] MEDS ORDERED: ASPIRIN 325 MG TAB PO ONE (08:00)
[2022-11-10] MEDS ORDERED: CLEVIDIPINE BUTYRATE 25 MG in EMPTY BAG 1 BAG IV PRN (08:00)
[2022-11-10] MEDS ORDERED: TRANEXAMIC ACID 2,000 MG in SODIUM CHLORIDE 0.9% 80 ML IV PRN (08:00)
[2022-11-10] MEDS ORDERED: ATORVASTATIN 10 MG TAB PO ONE (08:00)
[2022-11-10] MEDS ORDERED: CLOPIDOGREL 75 MG TAB PO ONE (08:00)
[2022-11-10] MEDS ORDERED: NITROGLYCERIN-D5W PMX 25 MG/250 ML BTL IV PRN (08:00)
[2022-11-10] MEDS ORDERED: INSULIN REGULAR 100 UNIT in SODIUM CHLORIDE 0.9% 100 ML IV PRN (08:00)
[2022-11-10] MEDS ORDERED: GLYCOPYRROLATE 0.2 MG/ML 2 ML VIAL ONE (10:20)
[2022-11-10] MEDS ORDERED: ROCURONIUM 10 MG/ML (5 ML VIAL) IV ONE (10:20)
[2022-11-10] MEDS ORDERED: ceFAZolin 1,000 MG VIAL ONE (10:20)
[2022-11-10] MEDS ORDERED: MIDAZOLAM 2 MG/2 ML VIAL ONE (10:20)
[2022-11-10] MEDS ORDERED: NEOSTIGMINE 1 MG/ML 10 ML VIAL ONE (10:20)
[2022-11-10] MEDS ORDERED: ETOMIDATE 2 MG/ML 10 ML VIAL ONE (10:20)
[2022-11-10] MEDS ORDERED: HEPARIN SODIUM,PORCINE 10,000 UNIT/ML 1 ML VIAL ONE (10:20)
[2022-11-10] MEDS ORDERED: LIDOCAINE 2% INJ 20 MG/ML (2 ML VIAL) ONE (10:20)
[2022-11-10] MEDS ORDERED: PROPOFOL 10 MG/ML 20 ML VIAL IV ONE (10:20)
[2022-11-10] MEDS ORDERED: SODIUM CHLORIDE 0.9% 100 ML BAG ONE (10:20)
[2022-11-10] MEDS ORDERED: fentaNYL (PF) 50 MCG/ML 2 ML AMP ONE (10:20)
--- NOTE | 2022-11-10 10:20 | P.OP ---
Date of Procedure: 11/10/22 Preoperative Diagnosis: Tricuspid calcific aortic stenosis Postoperative Diagnosis: Same Procedure(s) Performed: Transcatheter aortic valve replacement with 23 mm Brooks Tristan III via right percutaneous transfemoral approach Implants: 23 mm Brooks Tristan III valve Anesthesia: GETA Surgeon: Ortega Beasley (Cardiovascular surgeon) Health Care Consultant #1: Tayo Mcarthur (potline monitor) Estimated Blood Loss (ml): 15 IV fluids (ml): 800 Pathology: none sent Condition: stable Disposition: ICU Indications for Procedure: 76-year-old female with known severe aortic stenosis and progressive symptomatology. She was seen in the high risk valve clinic and consented for transcatheter valve implant. She is electively admitted for the procedure. Operative Findings: Mean gradient across the aortic valve was 35 mmHg. The valve was implanted successfully with excellent expansion of the valve and no evidence of paravalvular leak on postoperative MARTHA. Completion angiography demonstrated no leak and no stenosis of the right femoral artery. Description of Procedure: Patient was brought to the Instructor Physical and placed on the cath table. General anesthesia was induced and she was intubated. MARTHA probe was placed. Anterior torso and bilateral groins were sterilely prepped and draped. After surgical timeout, right clavian vein was punctured with an 18-gauge needle. Guidewire threaded into the right atrium. Introducer and dilator placed. Through the introducer sheath a screw-in ventricular lead was introduced into the apex of the right ventricle. Pacing threshold was 0.5 V. G Duser sheath was removed and the lead secured to the skin with 2-0 silk suture ligatures. Bilateral femoral access was obtained under ultrasound guidance. A long 6-Norwegian sheath was placed on the left side and pigtail advanced into the noncoronary cusp. On the right a 6-Norwegian sheath was placed. 2 Perclose devices were deployed in the right femoral artery and an 8-Norwegian sheath was placed. If wire was advanced into the descending thoracic aorta and the 8-Norwegian sheath exchanged for a 14- Norwegian Brooks sheath. The patient was systemically heparinized. ACTs were maintained greater than 250. The valve was crossed with a straight wire from the right side and pigtail catheter advanced into the apex of left ventricle. Transvalvular gradients were measured. Safari wire was placed in the apex of the ventricle. 23 mm Brooks Tristan III Ultra valve was loaded on the back table and brought up onto the field. The advanced over the Safari wire through the Brooks sheath and into the descending thoracic aorta. Balloon was pulled back into the valve stent and then the catheter curved around the aortic arch. The valve was crossed and the valve prosthesis appropriately positioned across the benton aortic valve. Pressure was pulled back and after assuring good positioning with root angiography, valve was deployed under rapid ventricular pacing. This proceeded uneventfully. Patient was turned down and the patient returned to normal sinus rhythm. Pressures were good. The valve delivery system was pulled back into the descending thoracic aorta. MARTHA demonstrated excellent function of the prosthetic valve with no paravalvular leak. Heparin was reversed with protamine. The valve delivery system was removed. The Brooks sheath was then removed and the 2 Perclose devices deployed with good hemostasis. Further groin hemostasis bilaterally was obtained by cardiology with completion angiography as noted above. Patient was transferred to ICU in stable condition.
[2022-11-10] MEDS ORDERED: IOPAMIDOL-370 100ML BTL INJ ONE (11:32)
--- NOTE | 2022-11-10 11:36 | P.ANPRN ---
Procedure Note - Anesthesia - MARTHA Intraop Pre Bypass MARTHA Intraop - Anesthesia Indication: TAVR Date of Procedure: 11/10/22 Pre-operative Diagnosis: Aortic Stenosis Post-operative Diagnosis: Same Surgeon: Ortega Beasley Left Ventricle: thickened Ejection Fraction: Normal Regional Wall Motion Abnormalities: None Left Ventricle Hypertrophy: Yes R. Ventricle Function: Normal Aortic Valve: 0.8cm2 Peak 58 mean 31 Velocity 3.83m/s Anatomy: Trileaflet Aortic Stenosis: Severe Aortic Regurgitation: Trace Mitral Stenosis: None Mitral Regurgitation: Trace Tricuspid Stenosis: None Tricuspid Regurgitation: Trace Pulmonic Stenosis: None Pulmonic Regurgitation: None R. Atrial Dilation: No R. Atrial PFO: No L. Atrial Dilation: No Aortic Dissection: No Aortic Calcification: Mild Plural Effusion: None
--- NOTE | 2022-11-10 11:38 | P.ANPRN ---
Procedure Note - Anesthesia - MARTHA Intraop Post Bypass MARTHA Intraop Post Bypass Procedure Performed: TAVR Left Ventricle: unchanged Ejection Fraction: Normal Regional Wall Motion Abnormalities: None R. Ventricle Function: Normal Aortic Valve: prosthetic valve in place. no perivalvular leak. No AI. peak 6.7 mean 4.7 Mitral Valve: Unchanged Tricuspid: Unchanged Pulmonic: Unchanged Aortic Dissection: No
[2022-11-10] MEDS ORDERED: Magnesium Replacement Protocol 1 EACH MISC MISCELLANE PRN ×2 (11:50→13:05)
[2022-11-10] MEDS ORDERED: IPRATROPIUM-ALBUTEROL 3 ML NEB INHALATION PRN (11:50)
[2022-11-10] MEDS ORDERED: Potassium Replacement Protocol 1 EACH MISC MISCELLANE PRN (11:50)
[2022-11-10] MEDS ORDERED: ONDANSETRON 4 MG/2 ML VIAL IVP PRN (11:50)
[2022-11-10] MEDS ORDERED: ACETAMINOPHEN TAB 325 MG TAB PO PRN (11:50)
[2022-11-10] MEDS ORDERED: IPRATROPIUM 0.5 MG/2.5 ML NEBU INHALATION PRN (12:00)
[2022-11-10] MEDS ORDERED: ALBUTEROL NEBULIZED 2.5 MG/3 ML INHALATION PRN (12:00)
--- NOTE | 2022-11-10 12:08 | P.OP ---
Date of Procedure: 11/10/22 Preoperative Diagnosis: Symptomatic tricuspid calcific aortic stenosis Postoperative Diagnosis: Same Procedure(s) Performed: Transcatheter aortic valve replacement with 26 mm Brooks's Tristan III valve via left percutaneous transfemoral approach Implants: 26 mm Brooks Tristan 3 prosthesis Anesthesia: GETA Surgeon: Ortega Beasley (Cardiovascular surgeon) Osd Clerk #1: Clive Sun (food preservation scientist) Estimated Blood Loss (ml): 20 IV fluids (ml): 900 Pathology: none sent Condition: stable Disposition: ICU Indications for Procedure: 76-year-old male with exertional dyspnea. Underwent total hip replacement last summer and was unable to successfully rehab. He has been getting progressively more short of breath with activity. He is found to have severe aortic valvular stenosis. He was seen in the high risk valve clinic and felt to be most appropriate for transcatheter valve implantation. Elective surgery was scheduled. Operative Findings: Measured valve R gradients were about 30 mmHg. Valve was implanted excessively at good levels. Was no evidence of paravalvular leak. Completion angiography demonstrated no narrowing and no leak from the left femoral access site. Description of Procedure: Patient was brought to the cardiac catheterization laboratory. He was placed supine on the table. Gen. anesthesia was induced. MARTHA probe was placed. The anterior torso and bilateral groins were sterilely prepped and draped. Right subclavian venous access was obtained with an 18-gauge needle. Guidewire threaded into the right atrium. Introducer and dilator were placed. Through the introducer the screw-in ventricular lead was manipulated into the apex of the left ventricle. Your pacing thresholds were left about 0.5 V. The lead was secured at the skin with 2 suture ligatures. Bilateral femoral access was obtained under ultrasound guidance. On the right a long 6-Venezuelan sheath was advanced into the descending thoracic aorta. A pigtail was placed through this into the right coronary sinus of Valsalva. On the left 6-Venezuelan sheath was placed. 2 Perclose devices were then deployed an 8-Venezuelan sheath was placed. A stiff wire was advanced into the defect sending a thoracic aorta and over this the 8-Venezuelan sheath was exchanged for the 14-Venezuelan Brooks sheath. Patient was systemically heparinized and ACT is maintained greater than 250 during the procedure. Valve was crossed with a straight wire from the left femoral access. Pigtail was placed in the apex of the left ventricle. Transvalvular gradients were measured. Safari wire was placed in the apex of the ventricle. A 26 mm Tristan III valve was loaded on the back table and brought up onto the field. Was advanced over the Safari wire through the Brooks sheath and into the descending thoracic aorta. Balloon was pulled back into the valve and then the valve was curved around the aortic arch and across the aortic valve. Pressure was pulled back. Appropriate depth of the valve within the annulus was obtained for implant. The valve was deployed by expanding the balloon under rapid ventricular pacing. This proceeded without event. Valve was noted to expand well. The deployment system and wire were pulled back into the descending thoracic aorta. MARTHA demonstrated excellent location of the valve and about 2080 depth. There was no paravalvular leak. Gradients below. Valve deployment system was removed. Heparin was reversed with protamine. Sheath was removed over a wire and the 2 Perclose devices were tightened successfully. The wire was pulled back and they were tightened further and good hemostasis was obtained in the left groin. After a brief period of compression completion angiogram was performed from the right and demonstrated good femoral arterial closure with no narrowing. Right femoral hemostasis was obtained by Dr. Sun. Patient had some mild bradycardia but maintained good blood pressure. Backup pacing was initiated. Patient was transferred to the ICU in stable condition.
[2022-11-10 12:19] LABS: Glucose,Whole Blood 138 mg/dL (70-110)
[2022-11-10] MEDS: LACTATED RINGERS 1,000 ML IV SCH (12:25)
[2022-11-10] MEDS: CLEVIDIPINE BUTYRATE 25 MG in EMPTY BAG 1 BAG IV SCH ×2 (12:25→15:06)
[2022-11-10 12:39] LABS: Anisocytosis Slight; Basophils # (A) 0.1 k/uL (0-0.2); Basophils % (A) 1 %; Eosinophils # (A) 0.4 k/uL (0-0.7); Eosinophils % (A) 5 %; HCT 37.7 % (39.0-53.0); HGB 11.3 gm/dL (13.0-17.5); Hypochromasia Slight; Lymphocytes # (A) 1.6 k/uL (1.0-4.8); Lymphocytes % (A) 18 %; MCH 25.5 pg (25.0-35.0); Mean Platelet Volume 8.3; Monocytes # (A) 0.6 k/uL (0-1.0); Monocytes % (A) 6 %; Neutrophils # (A) 5.7 k/uL (1.3-7.7); Neutrophils % (A) 68 %; Platelet Count 225 k/uL (150-450); RBC 4.43 m/uL (4.30-5.90); RDW 16.9 % (11.5-15.5); WBC 8.5 k/uL (3.8-10.6)
--- NOTE | 2022-11-10 12:43 | IR ---
EXAMINATION TYPE: IR stent intravas non coronary DATE OF EXAM: 11/10/2022 COMPARISON: NONE HISTORY: Fluoroscopy time. Fluoroscopy was provided to the referring clinician.
[2022-11-10 12:50] LABS: Ionized Calcium 4.7 mg/dL (4.5-5.3); Partial Thromboplastin Time 24.6 sec (22.0-30.0); Prothrombin Time 10.8 sec (9.0-12.0)
[2022-11-10 13:03] LABS: Albumin 3.2 g/dL (3.5-5.0); Calcium 7.7 mg/dL (8.4-10.2); Magnesium 1.5 mg/dL (1.6-2.3); Potassium 4.4 mmol/L (3.5-5.1); Total Bilirubin 0.3 mg/dL (0.2-1.3); Total Protein 5.6 g/dL (6.3-8.2)
--- NOTE | 2022-11-10 13:39 | P.PCN ---
Description of Procedure: Transcatheter Aoritc Valve Replacement Operative report PROCEDURE PERFORMED: 1. Percutaneous Aortic Valve Implantation using a 26 mm Tristan Ultra. 2. Transesophageal echocardiography (performed by anesthesia) 3. Ultrasound guided access and repair of left femoral artery access site by Perclose closure device. 4. Placement of temporary pacemaker wire. 5. Aortic root angiography INDICATIONS: 1. 76 year-old with a history of severe symptomatic aortic valve stenosis. PERFORMING PHYSICIANS: 1. Clive Sun, Interventional Cardiology 2. Ortega Beasley MD, Cardiothoracic Surgeon. SEDATION: General anesthesia provided by anesthesia, see separate note APPROACH: Left femoral artery via percutaneous approach PROCEDURE DESCRIPTION: The patient was discussed at valve clinic with multidisciplinary approach with cardiothoracic surgeon as well as parking worker and thought better treated with TAVR. Risks, benefits, and alternatives of the procedure had been explained to the patient who understood the risks and agreed to proceed. After consents were obtained, patient was brought to the transcatheter aortic valve implantation room in the cardiac labor service representative and general anesthesia was provided by the anesthesiologist (see separate report). Once full body sterile prep was performed, right subclavian venous access was obtained and a temporary pacemaker was screwed in, performed by cardiothoracic surgery. Pacing threshholds were checked and deemed appropriate. Next the right femoral artery was accessed using a modified Seldinger technique, ultrasound guidance and micropuncture technique. A 6 Angolan Rabi sheath was placed in the right femoral artery. Next, a 6-Angolan pigtail catheter was advanced into the aorta and positioned in the aortic root, aortic root angiography was performed to determine optimal deployment angle. The left femoral artery was accessed using modified Seldinger technique, micropuncture technique and under direct ultrasound guidance. Femoral angiogram was done showing access in the common femoral artery and a 6Fr sheath was placed. Next preclose technique was performed using 2 Percloses. Next a 0.035 Safari wire was placed in the Aorta via a pigtail catheter. Over that the arteriotomy was serially dilated and a 14 Fr Brooks sheath was placed. Next a 6F- AL1 catheter was advanced over a wire to the aortic root. A straight wire was advanced through the catheter and used to cross the severely stenotic valve. The AL1 was then exchanged for a 6Fr pigtail catheter and pressure measurements were obtained. The 0.035 Safari wire was then positioned in the apex. Next a 26 mm Tristan Ultra with +1cc contrast was advanced and loaded onto the balloon under fluoro. The valve was then positioned across the aortic valve and confirmed with aortic root angiography. The valve was then deployed in proper position using slow inflation and with rapid pacing. The delivery system was withdrawn back into the arch and an aortic root injection in conjunction with MARTHA demonstrated a satisfactory result. There was no para valvular leak. There was no evidence of any other significant abnormalities. The preclose Perclose was then deployed in the left femoral artery and hemostasis was achieved. The pigtail was then advanced to the level of the iliac bifurcation via the right femoral access. Femoral angiogram was performed that showed no contrast leak. The right femoral angiogram demonstrated an arteriotomy in the common femoral artery and this was repaired using a 6F angioseal device with complete hemostasis. The temporary venous pacemaker was sutured in place. There was intermittent pacing with occasional bradycardia into the 40s. The patient was then transported to the ICU in hemodynamically stable condition, requiring no pressor support. COMPLICATIONS: None CONCLUSION: 1. Implantaion of 26 Tristan Ultra transcatheter aortic valve via left femoral approach under MARTHA and fluoro guidance with no sherin-valvular aortic regurgitation. 2. Placement of temporary pacemaker wire 3. Aortic Root Aortogram. RECOMMENDATIONS: The patient will be monitored in the ICU for hemodynamic and electrical stability.
--- NOTE | 2022-11-10 14:16 | XR ---
EXAMINATION TYPE: XR chest 1V portable DATE OF EXAM: 11/10/2022 COMPARISON: 05/25/2021. HISTORY: Operative cardiac surgery. TECHNIQUE: Single frontal view of the chest is obtained. FINDINGS: There is no focal air space opacity, pleural effusion, or pneumothorax seen. The cardiac silhouette size is within normal limits. The osseous structures are intact. IMPRESSION: No acute process.
[2022-11-10 14:28] VITALS: BMI 33.6
[2022-11-10] MEDS: MAGNESIUM SULFATE-D5W PMX 1 GM in DEXTROSE/WATER 1 100ML.BAG IVPB SCH ×2 (15:06→16:18)
[2022-11-10] MEDS: TAMSULOSIN 0.4 MG CAP.ER.24H PO SCH (18:19)
[2022-11-10] MEDS: ATORVASTATIN 20 MG TAB PO SCH (20:08)
[2022-11-10] MEDS ORDERED: METOPROLOL TARTRATE 50 MG TAB PO SCH (21:00)
[2022-11-11] MEDS: HEPARIN SODIUM,PORCINE/PF 5,000 UNIT/0.5 ML SYRINGE SQ SCH ×3 (00:14→15:24)
[2022-11-11 04:20] LABS: Anisocytosis Slight; Basophils # (A) 0.1 k/uL (0-0.2); Basophils % (A) 1 %; Eosinophils # (A) 0.2 k/uL (0-0.7); Eosinophils % (A) 3 %; HCT 37.4 % (39.0-53.0); HGB 11.6 gm/dL (13.0-17.5); Hypochromasia Slight; Lymphocytes # (A) 0.9 k/uL (1.0-4.8); Lymphocytes % (A) 9 %; MCH 26.1 pg (25.0-35.0); MCV 84.1 fL (80.0-100.0); Mean Platelet Volume 8.5; Monocytes # (A) 0.6 k/uL (0-1.0); Monocytes % (A) 7 %; Neutrophils # (A) 7.3 k/uL (1.3-7.7); Neutrophils % (A) 79 %; Platelet Count 189 k/uL (150-450); RBC 4.44 m/uL (4.30-5.90); WBC 9.2 k/uL (3.8-10.6)
[2022-11-11 04:46] LABS: Ionized Calcium 4.8 mg/dL (4.5-5.3)
[2022-11-11 04:52] LABS: Calcium 8.1 mg/dL (8.4-10.2); Magnesium 1.8 mg/dL (1.6-2.3); Potassium 4.7 mmol/L (3.5-5.1); Total Bilirubin 0.4 mg/dL (0.2-1.3); Total Protein 5.4 g/dL (6.3-8.2)
[2022-11-11] MEDS: PANTOPRAZOLE 40 MG TABLET PO SCH (06:35)
[2022-11-11] MEDS: LEVOTHYROXINE 75 MCG TAB PO SCH (06:36)
[2022-11-11] MEDS: LACTATED RINGERS 1,000 ML IV SCH (07:06)
--- NOTE | 2022-11-11 07:37 | XR ---
EXAMINATION TYPE: XR chest 1V portable DATE OF EXAM: 11/11/2022 COMPARISON: 11/10/22 HISTORY: Postoperative TECHNIQUE: Single frontal view of the chest is obtained. FINDINGS: Heart size stable. Previous aortic valve replacement noted. Atherosclerotic change aorta. No pneumothorax or interstitial edema. Subsegmental changes left lung base. Bilateral pleural-based t hickening. No overt failure. IMPRESSION: Basilar atelectasis favored over early pneumonia correlate clinically.
[2022-11-11] MEDS: TAMSULOSIN 0.4 MG CAP.ER.24H PO SCH (08:58)
[2022-11-11] MEDS: FERROUS SULFATE 325 MG TAB PO SCH (08:58)
[2022-11-11] MEDS: CLOPIDOGREL 75 MG TAB PO SCH (08:58)
[2022-11-11] MEDS: ASPIRIN 81 MG PO SCH (08:58)
[2022-11-11] MEDS ORDERED: bisacodyL 10 MG SUPP RECTAL PRN (09:00)
[2022-11-11] MEDS ORDERED: MAGNESIUM HYDROXIDE 2,400 MG/10 ML CUP PO PRN (09:00)
[2022-11-11] MEDS ORDERED: METOPROLOL TARTRATE 50 MG TAB PO SCH (09:00)
[2022-11-11] MEDS ORDERED: AMIODARONE 100 MG TAB PO SCH (09:00)
--- NOTE | 2022-11-11 09:16 | P.PN ---
Subjective Progress Note Date: 11/11/22 Principal diagnosis: Symptomatic tricuspid calcific aortic valve stenosis. Past medical history significant for hypertension, hyperlipidemia, mild aortic dilatation, paroxysmal atrial fibrillation, diabetes mellitus type 2, osteoarthritis, hypothyroidism, status post thyroidectomy, COPD with preoperative FEV1 35% of predicted value, bifascicular block, and remote history of nicotine dependence. POD #1 percutaneous aortic valve implantation using a 26 mm Tristan Ultra, transe sophageal echocardiography performed by anesthesia, ultrasound-guided access and repair of the left femoral artery access site by Perclose closure device, placement of temporary pacemaker wire, aortic root angiography The patient was seen and examined in follow-up today 11/11/2022 at his bedside in the intensive care unit. Currently sitting up to the bedside chair, is awake, alert, oriented 3 and is in no acute apparent distress. Bedside telemetry showing a ventricular paced rhythm heart rate 70, underlying rhythm is showing a third-degree heart block with a heart rate in the 30s. Amiodarone and beta jose on hold at this time. Oxygen saturation are 97% and the patient is achieving 2000 mL on his incentive spirometry with encouragement. Patient denies any complaints of pain or shortness of breath at this time. Chest x-ray was reviewed. Laboratory results this point showing WBC count 9.2, hemoglobin 11.6, hematocrit 37.4, platelets 189, sodium 138, potassium 4.7, BUN 14, creat inine 1.12, glucose 159, calcium 8.1, and magnesium 1.8. The patient reports that he did have some urinary retention last night requiring straight catheterization. Since then he has voided 450 mL without difficulty. Objective - Vital Signs Vital signs: Vital Signs Temp 98.6 F 11/11/22 04:00 Pulse 69 11/11/22 07:00 Resp 15 11/11/22 07:00 BP 141/62 11/11/22 07:00 Pulse Ox 97 11/11/22 07:00 FiO2 Intake & Output 11/10/22 11/11/22 11/11/22 18:59 06:59 18:59 Intake Total 2424.000 600 50 Output Total 1100 300 0 Balance 1324.000 300 50 Weight 112.4 kg 113.1 kg Intake: IV 1300 Intake, IV Titration 644.000 600 50 Amount Clevidipine Butyrate 25 44.000 mg In Empty Bag 1 bag @ 1 MG/HR 2 mls/hr IV .Q24H [facility] Rx#:[id number] Lactated Ringers 1,000 ml 350 600 50 @ 50 mls/hr IV .Q20H [facility] Rx#:[id number] Magnesium Sulfate-D5w Pmx 200 1 gm In Dextrose/Water 1 100ml.bag @ 100 mls/hr IVPB Q1H [facility] Rx#: [id number] ceFAZolin 2 gm In Sodium 50 Chloride 0.9% 50 ml @ 100 mls/hr IVPB Q8HR [facility] Rx# :[id number] Oral 480 Output: Urine 750 300 0 Straight 350 Post Void Residual 300 Emesis 50 Other: Voiding Method Bedside Commode ABP, PAP, CO, CI - Last Documented Arterial Blood Pressure 177/64 - Exam CONSTITUTIONAL: Sitting up to the bedside chair in the intensive care unit, appears comfortable, cooperative, no apparent acute distress. HEENT: Neck is supple, no JVD, no lymphadenopathy. RESPIRATORY: Lungs sounds essentially clear throughout, diminished to his bilateral bases. Respirations are symmetrical and nonlabored. Currently on room air with oxygen saturations 97%. Able to achieve 2000 mL on his incentive spirometry. Strong cough. CARDIOVASCULAR: Regular rhythm and rate. S1 and S2 present, negative for S3, or gallop. Positive systolic murmur 2/6. Palpable peripheral pulses bilaterally, trace edema to his bilateral lower extremities. No calf pain or tenderness. Knee-high MARCO ANTONIO hose and sequential compression devices in place to his bilateral lower extremities. GASTROINTESTINAL: Abdomen soft, nontender, nondistended. Active bowel sounds present 4 quadrants. Passing flatus. No guarding or rigidity. GENITOURINARY: Continues to void. INTEGUMENTARY: Skin is warm and dry with no evidence of clubbing or cyanosis. Bilateral groin puncture sites clean, dry and intact. Soft and tender with palpation. MUSKULOSKELETAL: Able to move all extremities, strength equal bilaterally. PSYCHIATRIC: Alert and oriented to person place and time, appropriate affect, intact judgment and insight. INVASIVE LINES AND TUBES: Right chest temporary pacemaker in place and connected to bedside pacemaker generator on a VVI of 70 bpm. - Allied health notes Allied health notes reviewed: nursing - Labs CBC & Chem 7: 11/11/22 04:04 11/11/22 04:04 Labs: Abnormal Lab Results - Last 24 Hours (Table) 11/10/22 11/10/22 11/10/22 Range/Units 11:53 11:53 12:17 Hgb 11.3 L (13.0-17.5) gm/dL Hct 37.7 L (39.0-53.0) % MCHC 30.0 L (31.0-37.0) g/dL RDW 16.9 H (11.5-15.5) % Lymphocytes # (1.0-4.8) k/uL Chloride 110 H (98-107) mmol/L Glucose 145 H (74-99) mg/dL POC Glucose (mg/dL) 138 H (70-110) mg/dL Calcium 7.7 L (8.4-10.2) mg/dL Magnesium 1.5 L (1.6-2.3) mg/dL Total Protein 5.6 L (6.3-8.2) g/dL Albumin 3.2 L (3.5-5.0) g/dL 11/11/22 11/11/22 Range/Units 04:04 04:04 Hgb 11.6 L (13.0-17.5) gm/dL Hct 37.4 L (39.0-53.0) % MCHC (31.0-37.0) g/dL RDW 17.0 H (11.5-15.5) % Lymphocytes # 0.9 L (1.0-4.8) k/uL Chloride (98-107) mmol/L Glucose 159 H (74-99) mg/dL POC Glucose (mg/dL) (70-110) mg/dL Calcium 8.1 L (8.4-10.2) mg/dL Magnesium (1.6-2.3) mg/dL Total Protein 5.4 L (6.3-8.2) g/dL Albumin 3.0 L (3.5-5.0) g/dL - Imaging and Cardiology Chest x-ray: report reviewed, image reviewed Assessment and Plan Assessment: 1. Symptomatic tricuspid calcific aortic valve stenosis, status post percutaneous aortic valve implantation 2. Hypertension 3. Hyperlipidemia 4. Preoperative Bifascicular block, currently in third degree heart block and is being paced 5. Mild aortic dilatation 6. Paroxysmal atrial fibrillation 7. Diabetes mellitus type 2 with a preoperative hemoglobin A1c of 6.9% 8. Hypothyroidism, status post thyroidectomy 9. COPD with a preoperative FEV1 35% of predicted value 10. Osteoarthritis 11. Obesity with a BMI of 33.8 kg/m 12. Chronic anemia, continue home dose of ferrous sulfate Plan: 1. Keep temporary pacemaker in at this time and place pacemaker rate to VVI 50 BPM, if patient continues in third-degree heart block, plan is for permanent pacemaker placement tomorrow 11/12/2022. 2. Hold amiodarone and metoprolol at this time due to the patient's third- degree heart block. 3. Continue to encourage use of incentive spirometry 10 times every hour while awake. 4. Out of bed for all meals, encourage activity as tolerated. 5. Encouraged to hold groins when coughing, or sneezing. 6. Continue pain control per when necessary orders. 7. Nothing by mouth after midnight for possible permanent pacemaker placement tomorrow 11/12/2022. 8. More recommendations follow based on patient's clinical course. Time with Patient: Greater than 30
--- NOTE | 2022-11-11 10:55 | P.CNPUL ---
History of Present Illness Consult date: 11/11/22 Chief complaint: TAVR History of present illness: 76-year-old male patient with known history of aortic valve stenosis, the patient underwent a TAVR yesterday and the patient is currently in the intensive care unit patient is postop day #1. Noted preoperatively, the patient bifascicular block. Currently is placed at the rate of 50. He doesn't underlying third-degree AV block. The telemetry is currently showing a ventricular paced rhythm at the rate of 50. He is currently off beta blockers. He is also off amiodarone. He is on room air oxygen. Using the incentive spirometer. Pulse ox 97%. He is known to have paroxysmal atrial fibrillation, diabetes mellitus, hypothyroidism and COPD. His baseline FEV1 is in order of 35% of predicted. Hemodynamically stable. Urinating. His blood work today shows a WBC count 9.2 with a hemoglobin 11.6 and a platelet count of 189 and the patient has a potassium level IV.7. Calcium levels at 8.4. Magnesium level is at 1.8. Review of Systems Full review of system was done and the positive findings are almost all history of present illness. Preoperatively, the patient was accompanied some exertional dyspnea. Past Medical History Past Medical History: Atrial Fibrillation, COPD, Diabetes Mellitus, Hearing Disorder / Deafness, Hyperlipidemia, Hypertension, Thyroid Disorder Additional Past Medical History / Comment(s): Aortic valve stenosis,heart murmur,SOB w/ exertion,severe back pain,elevated heart rate, Ringing in ears, slightly hard of hearing. History of Any Multi-Drug Resistant Organisms: None Reported Past Surgical History: Bariatric Surgery, Heart Catheterization, Joint Replacement, Tonsillectomy Additional Past Surgical History / Comment(s): Lap band February 2010, thryoidectomy.CARDIOVERSION,rt hip replacement Past Anesthesia/Blood Transfusion Reactions: No Reported Reaction Smoking Status: Former smoker - Past Family History Father Family Medical History: Cancer, Hyperlipidemia Additional Family Medical History / Comment(s): Enlarged heart, skin cancer. Medications and Allergies Home Medications Medication Instructions Recorded Confirmed Type hydroCHLOROthiazide [Hydrodiuril] 50 mg PO DAILY 07/11/15 11/10/22 History Simvastatin 4 mg PO HS 06/16/21 11/10/22 History Amiodarone [Cordarone] 100 mg PO DAILY 04/08/22 11/10/22 History Metoprolol Tartrate [Lopressor] 50 mg PO BID 04/08/22 11/10/22 History Acetaminophen Tab [Tylenol] 650 mg PO Q4HR PRN 10/07/22 11/10/22 History Ferrous Sulfate [Iron (65 MG 325 mg PO DAILY 10/07/22 11/10/22 History Elemental)] Levothyroxine Sodium [Euthyrox] 125 mcg PO AC-BRKFST 10/07/22 11/10/22 History Clopidogrel [Plavix] 75 mg PO DAILY #90 tab 11/06/22 11/10/22 Rx Aspirin 81 mg PO DAILY 11/09/22 11/10/22 History Allergies Allergy/AdvReac Type Severity Reaction Status Date / Time No Known Allergies Allergy Verified 11/10/22 07: Physical Exam Vitals: Vital Signs Temp Pulse Resp BP BP Pulse Ox 11/11/22 10:00 49 L 20 121/54 97 11/11/22 09:00 49 L 23 121/40 98 11/11/22 08:00 98.4 F 49 L 16 141/62 97 11/11/22 07:00 69 15 141/62 97 11/11/22 06:00 69 14 106/67 97 11/11/22 05:00 69 14 124/74 97 11/11/22 04:00 98.6 F 69 12 118/52 96 11/11/22 03:00 68 21 116/83 96 11/11/22 02:00 68 13 132/51 97 11/11/22 01:00 68 12 125/56 95 11/11/22 00:06 70 14 11/11/22 00:00 99 F 68 13 133/53 97 11/10/22 23:00 68 12 117/55 98 11/10/22 22:00 68 14 116/66 97 11/10/22 21:00 70 14 145/83 11/10/22 20:00 98.4 F 68 12 158/72 11/10/22 19:00 68 20 97/66 98 11/10/22 18:00 70 20 102/63 97 11/10/22 17:45 69 22 11/10/22 17:30 69 18 11/10/22 17:15 70 16 11/10/22 17:00 69 20 102/63 96 11/10/22 16:45 69 22 119/76 119/76 11/10/22 16:30 69 23 124/89 97 11/10/22 16:15 69 18 96 11/10/22 16:00 98.2 F 69 17 124/89 95 11/10/22 15:45 69 18 95 11/10/22 15:30 69 19 96 11/10/22 15:15 70 16 95 11/10/22 15:00 70 18 118/56 97 11/10/22 14:45 70 18 98 11/10/22 14:30 70 16 96 11/10/22 14:15 69 16 97 11/10/22 14:00 69 20 109/61 94 L 11/10/22 13:45 69 18 95 11/10/22 13:30 69 16 95 11/10/22 13:18 69 16 98 11/10/22 13:16 70 17 98 11/10/22 13:14 69 21 98 11/10/22 13:12 69 22 99 11/10/22 13:10 69 20 99 11/10/22 13:08 70 24 98 11/10/22 13:06 69 24 99 11/10/22 13:04 70 22 99 11/10/22 13:02 69 20 99 11/10/22 13:00 69 15 114/54 99 11/10/22 12:58 69 23 98 11/10/22 12:56 69 24 98 11/10/22 12:54 69 22 99 11/10/22 12:52 69 17 98 11/10/22 12:50 69 19 98 11/10/22 12:48 69 15 99 11/10/22 12:46 70 22 100 11/10/22 12:44 69 18 100 11/10/22 12:42 68 16 100 11/10/22 12:40 70 18 99 11/10/22 12:38 69 21 100 11/10/22 12:36 69 16 100 11/10/22 12:34 69 16 99 11/10/22 12:32 70 16 144/79 99 11/10/22 12:30 69 9 L 99 11/10/22 12:28 69 16 100 11/10/22 12:26 70 12 99 11/10/22 12:24 69 19 98 11/10/22 12:22 70 12 97 11/10/22 12:20 70 12 96 11/10/22 12:18 70 12 98 11/10/22 12:16 69 12 99 11/10/22 12:14 87 12 94 L 11/10/22 12:12 54 L 12 Intake and Output 11/10/22 11/11/22 11/11/22 22:59 06:59 14:59 Intake Total 926.267 400 490 Output Total 1100 300 150 Balance -173.733 100 340 Intake: Intake, IV Titration 686.267 400 150 Amount Clevidipine Butyrate 25 36.267 mg In Empty Bag 1 bag @ 1 MG/HR 2 mls/hr IV .Q24H [facility] Rx#:[id number] Lactated Ringers 1,000 ml 400 400 100 @ 50 mls/hr IV .Q20H [facility] Rx#:[id number] Magnesium Sulfate-D5w Pmx 200 1 gm In Dextrose/Water 1 100ml.bag @ 100 mls/hr IVPB Q1H [facility] Rx#: [id number] ceFAZolin 2 gm In Sodium 50 50 Chloride 0.9% 50 ml @ 100 mls/hr IVPB Q8HR [facility] Rx# :[id number] Oral 240 340 Output: Urine 750 300 150 Straight 350 Post Void Residual 300 Emesis 50 Other: Voiding Method Bedside Commode Bedside Commode Weight 113.1 kg CONSTITUTIONAL: Sitting up to the bedside chair in the intensive care unit, appears comfortable, cooperative, no apparent acute distress. Patient is currently on room air oxygen. No signs of any respiratory distress. HEENT: Neck is supple, no JVD, no lymphadenopathy. RESPIRATORY: Lungs sounds essentially clear throughout, diminished to his bilateral bases. Respirations are symmetrical and nonlabored. Currently on room air with oxygen saturations 97%. Able to achieve 2000 mL on his incentive spirometry. Strong cough. CARDIOVASCULAR: Regular rhythm and rate. S1 and S2 present, negative for S3, or gallop. Positive systolic murmur 2/6. Palpable peripheral pulses bilaterally, trace edema to his bilateral lower extremities. No calf pain or tenderness. Knee-high MARCO ANTONIO hose and sequential compression devices in place to his bilateral lower extremities. GASTROINTESTINAL: Abdomen soft, nontender, nondistended. Active bowel sounds present 4 quadrants. Passing flatus. No guarding or rigidity. GENITOURINARY: Continues to void. INTEGUMENTARY: Skin is warm and dry with no evidence of clubbing or cyanosis. Bilateral groin puncture sites clean, dry and intact. Soft and tender with palpation. MUSKULOSKELETAL: Able to move all extremities, strength equal bilaterally. PSYCHIATRIC: Alert and oriented to person place and time, appropriate affect, intact judgment and insight. INVASIVE LINES AND TUBES: Right chest temporary pacemaker in place and connected to bedside pacemaker generator on a VVI of 50 bpm. Results - Laboratory Findings CBC and BMP: 11/11/22 04:04 11/11/22 04:04 PT/INR, D-dimer PT 10.8 sec (9.0-12.0) 11/10/22 11:53 INR 1.0 (<1.2) 11/10/22 11:53 Abnormal lab findings: Abnormal Labs 11/05/22 11/05/22 11/10/22 08:50 08:50 07:32 Hgb 12.2 L Hct MCHC 30.9 L RDW 17.1 H Lymphocytes # Chloride Glucose 153 H POC Glucose (mg/dL) 168 H Calcium Magnesium Total Protein Albumin 11/10/22 11/10/22 11/10/22 11:53 11:53 12:17 Hgb 11.3 L Hct 37.7 L MCHC 30.0 L RDW 16.9 H Lymphocytes # Chloride 110 H Glucose 145 H POC Glucose (mg/dL) 138 H Calcium 7.7 L Magnesium 1.5 L Total Protein 5.6 L Albumin 3.2 L 11/11/22 11/11/22 04:04 04:04 Hgb 11.6 L Hct 37.4 L MCHC RDW 17.0 H Lymphocytes # 0.9 L Chloride Glucose 159 H POC Glucose (mg/dL) Calcium 8.1 L Magnesium Total Protein 5.4 L Albumin 3.0 L - Diagnostic Findings Chest x-ray: image reviewed Assessment and Plan Plan: Severe symptomatic aortic stenosis post TAVR , patient is postoperative day #1. Patient is hemodynamically stable. The patient's creatinine at 3rd degree AV block and is ventricularly paced. Nevertheless, the patient is hemodynamically stable. Is being considered for a permanent pacemaker insertion is currently off beta blockers and amiodarone. Electrolytes are all within normal limits. COPD with an FEV1 of 35% predicted Hypertension Hyperlipidemia Preoperative bifascicular cardiac block Paroxysmal atrial fibrillation Hypothyroidism Osteoarthritis Plan Continue ventricular pacing at 50 Echocardiogram to assess the positioning and the functionality of the bioprosthetic valve Keep the patient off amiodarone and metoprolol Surgical 1 sets of dry clean and intact Continue using the incentive spirometer Continue Synthroid Continue aspirin and Plavix Possible permanent pacemaker if there is no improvement and a cardiac rhythm. Keep the patient in intensive.
[2022-11-11] MEDS: MAGNESIUM SULFATE-D5W PMX 1 GM in DEXTROSE/WATER 1 100ML.BAG IVPB SCH ×2 (14:12→15:23)
--- NOTE | 2022-11-11 17:47 | CA ---
Transthoracic Echo Report Name: Noel Ramos Age: 76 Gender: M : 1945 Exam Date: 11/11/2022 08:30 Exam Location: [facility] Ht (in): 72 Wt (lb): 247 Ordering Physician: Lisa Amador Attending/Referring Phys: [id number], [employer] [place] Byrnes RDCS Procedure CPT: Indications: post TAVR Cardiac Hx: ; HTN; Obesity Technical Quality: Fair Contrast 1: Total Dose (mL): Contrast 2: Total Dose (mL): MEASUREMENTS (Male / Female) Normal Values 2D ECHO LV Diastolic Diameter PLAX 5.0 cm 4.2 - 5.9 / 3.9 - 5.3 cm LV Systolic Diameter PLAX 3.9 cm IVS Diastolic Thickness 1.2 cm 0.6 - 1.0 / 0.6 - 0.9 cm LVPW Diastolic Thickness 1.7 cm 0.6 - 1.0 / 0.6 - 0.9 cm LV Relative Wall Thickness 0.6 RV Internal Dim ED PLAX 2.9 cm LVOT Diameter 2.0 cm LA Systolic Diameter LX 4.7 cm 3.0 - 4.0 / 2.7 - 3.8 cm LV Diastolic Volume MOD BP 92.9 cm??? 67 - 155 / 56 - 104 cm??? LV Systolic Volume MOD BP 54.6 cm??? 22 - 58 / 19 - 49 cm??? LV Ejection Fraction MOD BP 41.2 % >= 55 % LV Diastolic Volume MOD 4C 87.3 cm??? LV Systolic Volume MOD 4C 48.4 cm??? LV Ejection Fraction MOD 4C 44.6 % LV Diastolic Length 4C 8.3 cm LV Systolic Length 4C 7.3 cm LV Diastolic Volume MOD 2C 98.2 cm??? LV Systolic Volume MOD 2C 57.0 cm??? LV Ejection Fraction MOD 2C 41.9 % LV Diastolic Length 2C 8.4 cm LV Systolic Length 2C 8.1 cm M-MODE MV E Point Septal Separation 0.8 cm DOPPLER AV Peak Velocity 280.6 cm/s AV Peak Gradient 31.5 mmHg LVOT Peak Velocity 149.9 cm/s LVOT Peak Gradient 9.0 mmHg AV Area Cont Eq pk 1.7 cm??? MV Peak Velocity 112.8 cm/s MV Peak Gradient 5.1 mmHg MV Mean Velocity 62.6 cm/s MV Mean Gradient 1.8 mmHg MV Velocity Time Integral 44.5 cm MR Peak Velocity 261.9 cm/s MR Peak Gradient 27.4 mmHg MV E' Velocity 4.2 cm/s TR Peak Velocity 200.5 cm/s TR Peak Gradient 16.1 mmHg Right Ventricular Systolic Press 21.1 mmHg PV Peak Velocity 196.5 cm/s PV Peak Gradient 15.5 mmHg FINDINGS Left Ventricle Left ventricular ejection fraction is estimated at 50-55 %. Mild concentric left ventricular hypertrophy. Grade 1 diastolic dysfunction. Normal basal systolic function. Right Ventricle Normal right ventricular size and function. Right Atrium Normal right atrial size. Left Atrium Mild left atrial dilatation. Mitral Valve Mitral valve thickened. Moderate thickening/calcification of the anterior mitral valve leaflet. Moderate thickening/calcification of the posterior mitral valve leaflet. Moderate mitral annular calcification. Tean-[id number] mitral stenosis. Mild mitral regurgitation. Aortic Valve Normally functioning Tristan # 3 bioprosthetic aortic valve with: a peak velocity of 280cm/s, peak gradient of 31.5 mmHg, mean gradient mmHg, and estimated aortic valve area of 1.7 cm???. There is a small paravalvular AR. Tricuspid Valve Trace to mild tricuspid regurgitation. Pulmonic Valve Subvalvular pulmonic stenosis PV max-187 cm/s. Pericardium Normal pericardium. No pericardial effusion. Aorta Normal size aortic root and proximal ascending aorta. CONCLUSIONS Normal LV size and systolic function No pericardial effusion Stable aortic valve prosthesis with a peak gradient of 31 mmHg and mean gradient of 18 mmHg Trace paravalvular regurgitation Previewed by: Dr. Barber Penn MD (Electronically Signed) Final Date: 11 November 2022 17:46
[2022-11-11] MEDS: ATORVASTATIN 20 MG TAB PO SCH (20:25)
[2022-11-11] MEDS: SENNOSIDES-DOCUSATE SODIUM 1 EACH TAB PO SCH (20:25)
[2022-11-12] MEDS: HEPARIN SODIUM,PORCINE/PF 5,000 UNIT/0.5 ML SYRINGE SQ SCH ×4 (00:19→23:53)
[2022-11-12 04:06] LABS: Anisocytosis Slight; HCT 35.2 % (39.0-53.0); HGB 10.8 gm/dL (13.0-17.5); Hypochromasia Slight; MCH 25.5 pg (25.0-35.0); MCHC 30.6 g/dL (31.0-37.0); MCV 83.3 fL (80.0-100.0); Mean Platelet Volume 8.7; Platelet Count 154 k/uL (150-450); RBC 4.22 m/uL (4.30-5.90); RDW 16.8 % (11.5-15.5); WBC 8.7 k/uL (3.8-10.6)
[2022-11-12 04:16] LABS: Calcium 8.2 mg/dL (8.4-10.2); Magnesium 2.1 mg/dL (1.6-2.3); Potassium 4.5 mmol/L (3.5-5.1)
[2022-11-12] MEDS: LEVOTHYROXINE 75 MCG TAB PO SCH (06:33)
[2022-11-12] MEDS: PANTOPRAZOLE 40 MG TABLET PO SCH (06:33)
[2022-11-12] MEDS ORDERED: ceFAZolin 1 GM in SODIUM CHLORIDE 0.9% IRRIG BTL 250 ML IRRIGATION PRN (07:00)
[2022-11-12] MEDS ORDERED: VANCOMYCIN 1,700 MG in SODIUM CHLORIDE 0.9% 250 ML IVPB ONE (07:53)
[2022-11-12] MEDS ORDERED: VANCOMYCIN 1,750 MG in SODIUM CHLORIDE 0.9% 500 ML 500 ML IVPB ONE (08:00)
[2022-11-12] MEDS: ASPIRIN 81 MG PO SCH (08:20)
[2022-11-12] MEDS: TAMSULOSIN 0.4 MG CAP.ER.24H PO SCH (08:20)
[2022-11-12] MEDS: SODIUM CHLORIDE 0.9% 1,000 ML IV SCH ×2 (08:21→08:49)
[2022-11-12] MEDS: FERROUS SULFATE 325 MG TAB PO SCH (08:21)
[2022-11-12] MEDS: CLOPIDOGREL 75 MG TAB PO SCH (08:21)
--- NOTE | 2022-11-12 08:51 | P.PN ---
Subjective Progress Note Date: 11/12/22 76-year-old male patient with known history of aortic valve stenosis, the patient underwent a TAVR yesterday and the patient is currently in the intensive care unit patient is postop day #1. Noted preoperatively, the patient bifascicular block. Currently is placed at the rate of 50. He doesn't underly ing third-degree AV block. The telemetry is currently showing a ventricular paced rhythm at the rate of 50. He is currently off beta blockers. He is also off amiodarone. He is on room air oxygen. Using the incentive spirometer. Pulse ox 97%. He is known to have paroxysmal atrial fibrillation, diabetes mellitus, hypothyroidism and COPD. His baseline FEV1 is in order of 35% of predicted. Hemodynamically stable. Urinating. His blood work today shows a WBC count 9.2 with a hemoglobin 11.6 and a platelet count of 189 and the patient has a potassium level IV.7. Calcium levels at 8.4. Magnesium level is at 1.8. Date 2022, no new complaints and the patient is hemodynamically stable, still ventricular paced at the rate of 50, underlying rhythm is third-degree AV block. The patient is going to need a permanent pacemaker insertion scheduled to be done this morning. He is on room air oxygen. Blood pressure is adequate. Echocardiogram was done yesterday showed adequate positioning of the bioprosthetic valve. LV function was within normal limits. No evidence of any regurgitation. Neurologically, he is intact. Moving all 4 extremities. Blood work from today shows a WBC count of 8.7 with a hemoglobin of 10.8. BUN is at 18 with a creatinine of 1.1 and a sodium level is at 138. Glucose slightly elevated at 218 this morning. Is using the incentive spirometer. Objective - Vital Signs Vital signs: Vital Signs Temp 98.6 F 11/12/22 04:00 Pulse 49 L 11/12/22 07:00 Resp 23 11/12/22 07:00 BP 138/59 11/12/22 07:00 Pulse Ox 97 11/12/22 07:00 FiO2 Intake & Output 11/11/22 11/12/22 11/12/22 18:59 06:59 18:59 Intake Total 590 Output Total 150 240 0 Balance 440 -240 0 Weight 114 kg Intake: Intake, IV Titration 250 Amount Lactated Ringers 1,000 ml 100 @ 50 mls/hr IV .Q20H CAREN Rx#:[id number] Magnesium Sulfate-D5w Pmx 100 1 gm In Dextrose/Water 1 100ml.bag @ 100 mls/hr IVPB Q1H CAREN Rx#: [id number] ceFAZolin 2 gm In Sodium 50 Chloride 0.9% 50 ml @ 100 mls/hr IVPB Q8HR CAREN Rx# :[id number] Oral 340 Output: Urine 150 240 0 Other: Voiding Method Bedside Commode Bedside Commode Urinal # Voids 1 1 ABP, PAP, CO, CI - Last Documented Arterial Blood Pressure 177/64 - Exam CONSTITUTIONAL: Sitting up to the bedside chair in the intensive care unit, appears comfortable, cooperative, no apparent acute distress. Patient is currently on room air oxygen. No signs of any respiratory distress. HEENT: Neck is supple, no JVD, no lymphadenopathy. RESPIRATORY: Lungs sounds essentially clear throughout, diminished to his bilateral bases. Respirations are symmetrical and nonlabored. Currently on room air with oxygen saturations 97%. Able to achieve 2000 mL on his incentive spirometry. Strong cough. CARDIOVASCULAR: Regular rhythm and rate. S1 and S2 present, negative for S3, or gallop. Positive systolic murmur 2/6. Palpable peripheral pulses bilaterally, trace edema to his bilateral lower extremities. No calf pain or tenderness. Knee-high MARCO ANTONIO hose and sequential compression devices in place to his bilateral lower extremities. GASTROINTESTINAL: Abdomen soft, nontender, nondistended. Active bowel sounds present 4 quadrants. Passing flatus. No guarding or rigidity. GENITOURINARY: Continues to void. INTEGUMENTARY: Skin is warm and dry with no evidence of clubbing or cyanosis. Bilateral groin puncture sites clean, dry and intact. Soft and tender with palpation. MUSKULOSKELETAL: Able to move all extremities, strength equal bilaterally. PSYCHIATRIC: Alert and oriented to person place and time, appropriate affect, intact judgment and insight. INVASIVE LINES AND TUBES: Right chest temporary pacemaker in place and connected to bedside pacemaker generator on a VVI of 50 bpm. - Labs CBC & Chem 7: 11/12/22 03:43 11/12/22 03:43 Labs: Abnormal Lab Results - Last 24 Hours (Table) 11/12/22 11/12/22 Range/Units 03:43 03:43 RBC 4.22 L (4.30-5.90) m/uL Hgb 10.8 L (13.0-17.5) gm/dL Hct 35.2 L (39.0-53.0) % MCHC 30.6 L (31.0-37.0) g/dL RDW 16.8 H (11.5-15.5) % Glucose 218 H (74-99) mg/dL Calcium 8.2 L (8.4-10.2) mg/dL Assessment and Plan Plan: Severe symptomatic aortic stenosis post TAVR , patient is postoperative day #2. Patient is hemodynamically stable. The patient's creatinine at 3rd degree AV block and is ventricularly paced. Nevertheless, the patient is hemodynamically stable. Is being considered for a permanent pacemaker insertion is currently off beta blockers and amiodarone. Electrolytes are all within normal limits. Third-degree AV block currently ventricularly paced at the rate of 50 COPD with an FEV1 of 35% predicted Hypertension Hyperlipidemia Preoperative bifascicular cardiac block Paroxysmal atrial fibrillation Hypothyroidism Osteoarthritis Plan Continue ventricular pacing at 50 Echocardiogram was noted The patient is scheduled to have a permanent pacemaker today Keep the patient off amiodarone and metoprolol Continue using the incentive spirometer Continue Synthroid Continue aspirin and Plavix Electrolytes are normal Keep the patient in intensive. Possible discharge following his pacemaker insertion. Depending on his overall outcome.
--- NOTE | 2022-11-12 08:54 | P.PN ---
Subjective Progress Note Date: 11/12/22 Principal diagnosis: Symptomatic tricuspid calcific aortic valve stenosis. Past medical history significant for hypertension, hyperlipidemia, mild aortic dilatation, paroxysmal atrial fibrillation, diabetes mellitus type 2, osteoarthritis, hypothyroidism, status post thyroidectomy, COPD with preoperative FEV1 35% of predicted value, bifascicular block, and remote history of nicotine dependence. POD #2 percutaneous aortic valve implantation using a 26 mm Tristan Ultra, transe sophageal echocardiography performed by anesthesia, ultrasound-guided access and repair of the left femoral artery access site by Perclose closure device, placement of temporary pacemaker wire, aortic root angiography The patient was seen and examined today 11/12/2022 at his bedside in the intensive care unit. Currently sitting up to bedside chair, is awake, alert, oriented 3 and is in no acute apparent distress. Bedside telemetry showing paced rhythm heart rate 50 BPM. Temporary pacemaker wire remains in place and is connected to a bedside backup pacemaker generator on a VVI of 50 BPM. Underlying rhythm continues to show complete heart block heart rate in the 30s. Oxygen saturation are 97% on room air and he is achieving 2000 mL on his incentive spirometry with encouragement. Denies any complaints of pain or shortness of breath at this time, although is complaining of a persistent loose cough with occasional sputum, yellow in color. He's been afebrile in the last 24 hours. He remains hemodynamically stable and is currently on no inotropic pressure support. He has been up ambulating in the intensive care unit hallway with standby assistance of nursing staff. Laboratory results show a WBC count of 8.7, hemoglobin 10.8, hematocrit 35.2, platelets 154, sodium 138, potassium 4.5, BUN 18, creatinine 1.16, glucose 218, calcium 8.2 and an magnesium 2.1. Objective - Vital Signs Vital signs: Vital Signs Temp 98.6 F 11/12/22 04:00 Pulse 49 L 11/12/22 07:00 Resp 23 11/12/22 07:00 BP 138/59 11/12/22 07:00 Pulse Ox 97 11/12/22 07:00 FiO2 Intake & Output 11/11/22 11/12/22 11/12/22 18:59 06:59 18:59 Intake Total 590 Output Total 150 240 0 Balance 440 -240 0 Weight 114 kg Intake: Intake, IV Titration 250 Amount Lactated Ringers 1,000 ml 100 @ 50 mls/hr IV .Q20H CAREN Rx#:[id number] Magnesium Sulfate-D5w Pmx 100 1 gm In Dextrose/Water 1 100ml.bag @ 100 mls/hr IVPB Q1H CAREN Rx#: [id number] ceFAZolin 2 gm In Sodium 50 Chloride 0.9% 50 ml @ 100 mls/hr IVPB Q8HR CAREN Rx# :[id number] Oral 340 Output: Urine 150 240 0 Other: Voiding Method Bedside Commode Bedside Commode Urinal # Voids 1 1 ABP, PAP, CO, CI - Last Documented Arterial Blood Pressure 177/64 - Exam CONSTITUTIONAL: Sitting up to the bedside chair in the intensive care unit, appears comfortable, cooperative, no apparent acute distress. HEENT: Neck is supple, no JVD, no lymphadenopathy. RESPIRATORY: Lungs sounds essentially clear throughout, diminished to his bilateral bases. Respirations are symmetrical and nonlabored. Currently on room air with oxygen saturations 97%. Able to achieve 2000 mL on his incentive spir ometry. Strong cough loose productive cough, yellow sputum. CARDIOVASCULAR: Regular rhythm and rate. S1 and S2 present, negative for S3, or gallop. Positive systolic murmur 2/6. Palpable peripheral pulses bilaterally, trace edema to his bilateral lower extremities. No calf pain or tenderness. Knee-high MARCO ANTONIO hose and sequential compression devices in place to his bilateral lower extremities. GASTROINTESTINAL: Abdomen soft, nontender, nondistended. Active bowel sounds present 4 quadrants. Passing flatus. No guarding or rigidity. GENITOURINARY: Continues to void. 240 mL of urine output overnight. INTEGUMENTARY: Skin is warm and dry with no evidence of clubbing or cyanosis. Bilateral groin puncture sites clean, dry and intact. Soft and tender with palpation. No drainage present. MUSKULOSKELETAL: Able to move all extremities, strength equal bilaterally. PSYCHIATRIC: Alert and oriented to person place and time, appropriate affect, intact judgment and insight. INVASIVE LINES AND TUBES: Right chest temporary pacemaker in place and connected to bedside pacemaker generator on a VVI of 50 bpm. - Allied health notes Allied health notes reviewed: nursing - Labs CBC & Chem 7: 11/12/22 03:43 11/12/22 03:43 Labs: Abnormal Lab Results - Last 24 Hours (Table) 11/12/22 11/12/22 Range/Units 03:43 03:43 RBC 4.22 L (4.30-5.90) m/uL Hgb 10.8 L (13.0-17.5) gm/dL Hct 35.2 L (39.0-53.0) % MCHC 30.6 L (31.0-37.0) g/dL RDW 16.8 H (11.5-15.5) % Glucose 218 H (74-99) mg/dL Calcium 8.2 L (8.4-10.2) mg/dL Assessment and Plan Assessment: 1. Symptomatic tricuspid calcific aortic valve stenosis, status post percutaneous aortic valve implantation 2. Hypertension 3. Hyperlipidemia 4. Preoperative Bifascicular block, currently in third degree heart block and is currently being paced 5. Mild aortic dilatation 6. Paroxysmal atrial fibrillation 7. Diabetes mellitus type 2 with a preoperative hemoglobin A1c of 6.9% 8. Hypothyroidism, status post thyroidectomy 9. COPD with a preoperative FEV1 35% of predicted value 10. Osteoarthritis 11. Obesity with a BMI of 33.8 kg/m 12. Chronic anemia, continue home dose of ferrous sulfate Plan: 1. Keep temporary pacemaker in at this time and place pacemaker rate to VVI 50 BPM, plan is for permanent pacemaker placement today 11/12/[address] Penn from cardiology. 2. Hold amiodarone and metoprolol at this time due to the patient's underlying rhythm of third-degree heart block. We will restart amiodarone and metoprolol post-permanent pacemaker placement. 3. Continue to encourage use of incentive spirometry 10 times every hour while awake. 4. Out of bed for all meals, encourage activity as tolerated. 5. Encouraged to hold groins when coughing, or sneezing. 6. Continue pain control per when necessary orders. 7. Keep Nothing by mouth until after the permanent pacemaker has been placed. 8. Discharge planning is in place, anticipate discharge home in the next 24 hours. 9. More recommendations follow based on patient's clinical course. Time with Patient: Greater than 30
[2022-11-12] MEDS ORDERED: IV FLUID CONTINUATION 1,000 ML IV ONE (09:20)
[2022-11-12] MEDS ORDERED: IOPAMIDOL-370 100ML BTL INJ ONE (09:40)
[2022-11-12] MEDS ORDERED: fentaNYL (PF) 50 MCG/ML 2 ML AMP ONE (10:07)
[2022-11-12] MEDS ORDERED: fentaNYL (PF) 50 MCG/ML 2 ML AMP IV ONE ×2 (10:07)
[2022-11-12] MEDS ORDERED: LIDOCAINE 1% INJ 10MG/ML (30 ML VIAL-PF) SQ ONE (10:09)
--- NOTE | 2022-11-12 11:14 | P.EPPROC ---
- EP Procedure Note Electrophysiology Procedure Note: Diagnosis Symptomatic bradycardia secondary to complete heart block status post TAVR No recovery after 48 hours of temporary pacing Procedure Dual-chamber pacemaker implantation, [employer] Details Patient was brought to the EP lab in a fasting state. Written informed consent was obtained prior to the procedure. Conscious sedation provided. IV antibiotics administered. Local anesthesia administered. A 4 cm incision made in the pectoral area. Subfascial pocket made. Venous accesses obtained Venous sheaths placed. Leads placed in the right heart Atrial lead position the right atrial appendage. Medtronic lead, 52 cm, active fix P waves 3-4 mV, pacing threshold 2.2 V at 0.4 ms, current of injury present, pacing impedance 855 ohms 10 V test negative RV lead position in the RV apex. 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
--- NOTE | 2022-11-12 11:15 | P.PCN ---
Preoperative Diagnosis: Patient underwent TAVR Intraoperative placement of an externalized pacemaker At the end of a permanent dual-chamber pacemaker implantation the externalized pacemaker was extracted Dressing was removed in the right pectoral area The site was cleaned and dressed in the right pectoral area Lead sutures removed Lead unscrewed under fluoroscopy, screwed retracted Stylet placed Counterclockwise rotation and gradual manual traction Lead successfully removed and hemostasis showed Permanent dual-chamber pacemaker leads in stable position on fluoroscopy
--- NOTE | 2022-11-12 11:17 | P.PCN ---
Preoperative Diagnosis: Left upper extremity venogram performed prior to dual-chamber pacemaker implantation 15 mL IV dye injected in the left arm Patent left axillary and subclavian vein and cephalic vein Plan Proceed with permanent dual-chamber pacemaker implantation from the left axillary vein
--- NOTE | 2022-11-12 12:08 | XR ---
EXAMINATION TYPE: XR chest 1V portable DATE OF EXAM: 11/12/2022 COMPARISON: 11/11/2022. HISTORY: Pacemaker placement. TECHNIQUE: Single frontal view of the chest is obtained. FINDINGS: There is no focal air space opacity, pleural effusion, or pneumothorax seen. The cardiac silhouette size is mildly enlarged. There is a left-sided pacemaker with leads overlying the right at rium and right ventricle which are new. There is no pneumothorax. The osseous structures are intact . IMPRESSION: Cardiomegaly with pacemaker placement no acute findings otherwise seen.
--- NOTE | 2022-11-12 12:30 | P.DS ---
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 Symptomatic tricuspid calcific aortic valve stenosis, status post percutaneous aortic valve implantation 2. Hypertension 3. Hyperlipidemia 4. Preoperative Bifascicular block, postoperative third-degree heart block, status post permanent pacemaker placement 5. Mild aortic dilatation 6. Paroxysmal atrial fibrillation 7. Diabetes mellitus type 2 with a preoperative hemoglobin A1c of 6.9% 8. Hypothyroidism, status post thyroidectomy 9. COPD with a preoperative FEV1 35% of predicted value 10. Osteoarthritis 11. Obesity with a BMI of 33.8 kg/m 12. Chronic anemia, continue home dose of ferrous sulfate PROCEDURE: 1. Percutaneous aortic valve implantation using a 26 mm Brooks Tristan valve under MARTHA and fluoroscopy guidance 2. Transesophageal echocardiography performed by anesthesia 3. Ultrasound-guided access and repair of the left femoral artery access site by Perclose closure device 4. Placement of temporary pacemaker wire 5. Aortic root angiography 6. Dual-chamber pacemaker implantation, [employer] HISTORY OF PRESENT ILLNESS: This is a 76-year-old gentleman who follows on an outpatient basis with Dr. Ronald Waite for primary care and Dr. Mcarthur for his cardiology care. He has a known history of progressive exertional dyspnea. He had been referred to structural heart clinic for evaluation for transcatheter aortic valve replacement after heart catheterization and transthoracic echocardiogram were completed. Echocardiography demonstrated systolic function with EF 60-65%, aortic valve area 0.89 cm with a peak/mean gradient 74/39 mmHg. Heart catheterization showed critical disease to the RCA, proximal circumflex IFR0.87, mid circumflex 60-70%, LAD IFR 0.84 and mid LAD stenosis of 60%. Due to the findings on the heart catheterization the patient underwent successful stenting of the mid LAD, and proximal left circumflex coronary artery on 11/05/[address] Mcarthur. After workup was completed STS risk score was calculated along with incremental risk and the patient was felt to be intermediate risk for surgical aortic valve replacement, therefore transcatheter aortic valve replacement was recommended. The usual course of TAVR was discussed in detail the patient, risks and benefits were reviewed, shared decision making between cardiology, surgery, and the patient/family took place, and the patient consented to proceed with the procedure. HOSPITAL COURSE: The patient was brought to the hospital on 11/10/22, was taken to the extended stay area, prepared in the usual fashion, and subsequently taken to the cardiac catheterization laboratory where Dr. Sun and Dr. Beasley completed TAVR procedure under general anesthesia with fluoroscopy and MARTHA. The valve was deployed under rapid ventricular pacing and proceeded without event. At the end of the procedure there was mean gradient 4.7, hemodynamics were felt to be acceptable, and there was no evidence of significant perivalvular leak. Upon completion of the procedure the patient was extubated and was transferred to the cardiovascular intensive care unit where he was recovered and monitored hemodynamically. Postoperatively the patient did have complete heart block requiring placement of permanent pacemaker which was performed by Dr. Penn from electrophysiology. His oxygen was titrated down, he was tolerating oral diet, his pain was controlled, follow-up TTE demonstrated normal left ventricular systolic function with an ejection fraction of 50-55%, trace paravalvular regurgitation, acceptable hemodynamics, and he was ready to be discharged to home on postoperative day #2. He received written and verbal instruction regarding his medications, activity restrictions, signs and symptoms requiring physician notification, and his follow-up appointments. Plan - Discharge Summary Discharge Rx Participant: No New Discharge Prescriptions: Continue hydroCHLOROthiazide [Hydrodiuril] 50 mg PO DAILY Simvastatin 4 mg PO HS Metoprolol Tartrate [Lopressor] 50 mg PO BID Levothyroxine Sodium [Euthyrox] 125 mcg PO AC-BRKFST Clopidogrel [Plavix] 75 mg PO DAILY #90 tab Aspirin 81 mg PO DAILY Amiodarone [Cordarone] 100 mg PO DAILY Ferrous Sulfate [Iron (65 MG Elemental)] 325 mg PO DAILY Acetaminophen Tab [Tylenol] 650 mg PO Q4HR PRN PRN Reason: Pain Control Discharge Medication List hydroCHLOROthiazide [Hydrodiuril] 50 mg PO DAILY 11/06/15 [History] Simvastatin 4 mg PO HS 06/16/21 [History] Amiodarone [Cordarone] 100 mg PO DAILY 04/08/22 [History] Metoprolol Tartrate [Lopressor] 50 mg PO BID 04/08/22 [History] Acetaminophen Tab [Tylenol] 650 mg PO Q4HR PRN 10/07/22 [History] Ferrous Sulfate [Iron (65 MG Elemental)] 325 mg PO DAILY 10/07/22 [History] Levothyroxine Sodium [Euthyrox] 125 mcg PO AC-BRKFST 10/07/22 [History] Clopidogrel [Plavix] 75 mg PO DAILY #90 tab 11/06/22 [Rx] Aspirin 81 mg PO DAILY 11/09/22 [History] Follow up Appointment(s)/Referral(s): Tayo Mcarthur MD [STAFF PHYSICIAN] - 11/24/22 4:00 pm (Your appointment on 11/24/[address] Mcarthur is for groin check. You will also have a 30 day post TAVR echo and appointment with Dr. Mcarthur 01/21/2023 @ 3 PM, and a 1 year post TAVR echo and appointment with Dr. Mcarthur 10/24/23 @ 1:45 pm) Ronald Waite MD [Primary Care Provider] - As Needed Clinic,Structural Heart [NON-STAFF] - 01/21/23 2:30 pm (You have an appointment at the Valve Clinic for 30 day follow up 01/21/23 @ 2:30 pm, and again 10/14/23 @ 1:15 for a 1 year follow up. Both appointments are in the Valve Clinic prior to your appointments with Dr. Sun) Ambulatory/Diagnostic Orders: Complete Blood Count w/diff [LAB.AMB] Facility: [facility], Location: [facility] Complete Blood Count w/diff [LAB.AMB] Facility: [facility], Location: [facility] Comprehensive Metabolic Panel [LAB.AMB] Facility: [facility], Location: [facility] Comprehensive Metabolic Panel [LAB.AMB] Facility: [facility], Location: [facility] Activity/Diet/Wound Care/Special Instructions: DISCHARGE INSTRUCTIONS: 1. No driving for 1 week, or until physician gives their ok. 2. No lifting, pushing, or pulling more than 5-10 pounds for 1 week. 3. Hold both groins when you cough or sneeze for the next 2 weeks. Bruising is common, but report increased swelling, pain or fever >101F 4. Shower daily. No pool, hot tub, or bathtub for 1 week 5. No powders, lotions, ointments on incisions. 6. No straining, including for bowel movements. Use stool softner if necessary 7. Stairs are not an issue. Go slowly, using handrail and take 1 step at a time. Ambulate several times daily 8. Continue pain control per as needed orders. 9. Take only the medications listed on your discharge form 10. Eat low salt (limited to 2 grams or 2000 milligrams) daily, avoid adding salt, avoid canned/processed foods 11. Take your weight daily in the morning and record, bring with you to your follow up appointments 12. Keep all follow up appointments. You will need a valve clinic appointment at 30 days and 1 year post procedure for follow up 13. You have been referred to and are expected to begin Cardiac Rehab in approximately 4 weeks. 14. You will need antibiotics prior to any dental work, including cleanings, and any surgeries to prevent Endocarditis (bacterial infection in your heart) For any questions or concerns please call your valve coordinators: Lisa or Jonas @ PATIENT EDUCATION MATERIAL Instructions following a heart rhythm device implant. 1. Keep dressing DRY for 5 DAYS. You may cover the area with Saran or Cling Wrap, prior to a shower. 2. The dressing will be removed in the Device Clinic at [facility]. Absorbable sutures were used to close the wound. 3. Avoid raising the left arm above the shoulder level. 4 week restriction 4. Avoid arm movements, like backscratching, rubbing the head, or pulling on a cord. 4 weeks restriction 5. Gentle range of motion movements of the shoulder, closest to the incision should be performed to avoid a frozen shoulder. (Pendulum exercises of the shoulder) 6. The opposite arm may be used freely. 7. Avoid driving for 7 days. 8. Avoid activities such as golfing, swimming, weed whacking, lifting more than 10 pounds weight, bowling, gymnastics and weight training/lifting. (6 weeks restriction) 9. Activities such as wood chopping with an axe, pull-ups in the gymnasium, power lifting, arc-welding, being close to home induction cooktops will always be a problem. 10. Arm sling is only a reminder not to raise the arm above the head. You do not need to keep the arm completely immobilized. Your free to move the arm and use it and for normal activities. In case of any problems, please call [facility], [place], @ [phone], Attention: Device Clinic Device clinic follow-up in 5 days Follow-up with primary superintendent plant protection in 1 months Discharge Disposition: HOME WITH HOME HEALTH SERVICES
--- NOTE | 2022-11-12 16:50 | CDI ---
Documentation Clarification Form Date: 11/12/2022 4:02:41 PM From: Danielle Alex RN, CCDS Admit Date: 11/10/2022 7:00:00 AM Patient Name: Noel Ramos Visit Number: [id number] Discharge Date: ATTENTION: The Clinical Documentation Specialists (CDI) and [facility] Coding Staff appreciate your assistance in clarifying documentation. Please respond to the clarification below the line at the bottom and electronically sign. The CDI & [facility] Coding staff will review the response and follow-up if needed. Please note: Queries are made part of the Legal Health Record. If you have any questions, please contact the author of this message via ITS. Dr. Clive Sun Postoperative third-degree heart block is documented in the progress notes starting on 11/11/2022 and patient had Transcatheter aortic valve replacement with 26mm Brooks's Tristan III valve via left percutaneous transfemoral approach... Additional clarification is requested regarding the relationship, if any, that exists between the diagnosis and the procedure. Patients Admitting Diagnosis: Symptomatic Tricuspid calcific calcific aortic stenosis. Post-Operative Diagnosis: Same Procedure performed: Transcatheter aortic valve replacement with 26mm Brooks's Tristan III valve via left percutaneous transfemoral approach. History/Risk Factors: Paroxysmal atrial fibrillation, Diabetes mellitus, COPD, Bifascicular block Clinical Indicators: 76-year-old male with exertional dyspnea. He is found to have severe aortic valvular stenosis. 11/10/22 present for repair. He had placement of temporary pacemaker wire. 11/11 Vs: 121/40 39 23 98 % RA 11/11 Labs: WBC 8.5 HGB 11.3 CA+ 7.7 Magnesium 1.5 11/11 Pulmonary progress notes: underlying third-degree AV block. The telemetry is currently showing a ventricular paced rhythm rate of 50. 11/12 CVT: Preoperative bifascicular block, postoperative third-degree heart block, status post permanent pacemaker placement Treatment: ICU/Telemetry monitoring Dual-chamber pacemaker ASA 81 MG PO Daily, Plavix 75 MG PO Daily What relationship, if any, exists between the diagnosis of postoperative third- degree heart block and the procedure? [ X ] Third-degree heart block is a complication of surgical procedure [ ] Third-degree heart block is related to patients co-morbid condition(s) of [insert co-morbid dxs] & not a complication of the procedure [ ] Third-degree heart block is an expected outcome of the surgical procedure. [ ] Other please specify ____ [ ] Unable to determine (Template Last Revised: November 2020) MTDD
[2022-11-12] MEDS: ATORVASTATIN 20 MG TAB PO SCH (20:08)
[2022-11-12] MEDS: SENNOSIDES-DOCUSATE SODIUM 1 EACH TAB PO SCH (20:08)
[2022-11-12] MEDS ORDERED: METOPROLOL TARTRATE 25 MG TAB PO SCH (21:00)
[2022-11-12] MEDS ORDERED: METOPROLOL TARTRATE 50 MG TAB PO SCH (21:00)
[2022-11-13] MEDS ORDERED: cloNIDine 0.1 MG/24HR PATCH TRANSDERM SCH (00:30)
[2022-11-13] MEDS: carvediloL 12.5 MG TAB PO SCH ×2 (00:31→08:05)
[2022-11-13] MEDS: VALSARTAN 80 MG TAB PO SCH ×2 (03:39→13:13)
[2022-11-13 06:32] LABS: African American GFR (CKD) >90 (>60 ml/min/1.73 sqM); Anion Gap 10 mmol/L; Blood Urea Nitrogen 11 mg/dL (9-20); Calcium 8.4 mg/dL (8.4-10.2); Carbon Dioxide 23 mmol/L (22-30); Chloride 106 mmol/L (98-107); Glucose 193 mg/dL (74-99); Non-African American GFR(CKD) 81 (>60 ml/min/1.73 sqM); Potassium 4.6 mmol/L (3.5-5.1); Sodium 139 mmol/L (137-145)
--- NOTE | 2022-11-13 07:15 | XR ---
EXAMINATION TYPE: XR chest 1V portable DATE OF EXAM: 11/13/2022 5:44 AM COMPARISON: Chest radiograph from one day prior. TECHNIQUE: XR chest 1V portable Portable AP radiograph of the chest. CLINICAL INDICATION:Male, 76 years old with history of Post PPM placement; FINDINGS: Lungs/Pleura: There is no evidence of pleural effusion, focal consolidation, or pneumothorax. Pulmonary vascularity: Unremarkable. Heart/mediastinum: Cardiomediastinal silhouette is unremarkable. Two lead cardiac conduction device o verlying the left hemithorax with lead tips projecting over the right ventricle and right atrium. Musculoskeletal: No acute osseous pathology. IMPRESSION: Stable exam, conduction leads in appropriate placement.
[2022-11-13] MEDS: SODIUM CHLORIDE 0.9% 1,000 ML IV SCH ×2 (07:51→13:13)
[2022-11-13] MEDS: TAMSULOSIN 0.4 MG CAP.ER.24H PO SCH (08:03)
[2022-11-13] MEDS: FERROUS SULFATE 325 MG TAB PO SCH (08:03)
[2022-11-13] MEDS: PANTOPRAZOLE 40 MG TABLET PO SCH (08:04)
[2022-11-13] MEDS: HEPARIN SODIUM,PORCINE/PF 5,000 UNIT/0.5 ML SYRINGE SQ SCH (08:04)
[2022-11-13] MEDS: CLOPIDOGREL 75 MG TAB PO SCH (08:05)
[2022-11-13] MEDS: ASPIRIN 81 MG PO SCH (08:05)
[2022-11-13] MEDS: LEVOTHYROXINE 75 MCG TAB PO SCH (08:05)
[2022-11-13] MEDS ORDERED: AMIODARONE 100 MG TAB PO SCH (09:00)
--- NOTE | 2022-11-13 09:29 | P.PN ---
Subjective Progress Note Date: 11/13/22 76-year-old male patient with known history of aortic valve stenosis, the patient underwent a TAVR yesterday and the patient is currently in the intensive care unit patient is postop day #1. Noted preoperatively, the patient bifascicular block. Currently is placed at the rate of 50. He doesn't underly ing third-degree AV block. The telemetry is currently showing a ventricular paced rhythm at the rate of 50. He is currently off beta blockers. He is also off amiodarone. He is on room air oxygen. Using the incentive spirometer. Pulse ox 97%. He is known to have paroxysmal atrial fibrillation, diabetes mellitus, hypothyroidism and COPD. His baseline FEV1 is in order of 35% of predicted. Hemodynamically stable. Urinating. His blood work today shows a WBC count 9.2 with a hemoglobin 11.6 and a platelet count of 189 and the patient has a potassium level IV.7. Calcium levels at 8.4. Magnesium level is at 1.8. Date 2022, no new complaints and the patient is hemodynamically stable, still ventricular paced at the rate of 50, underlying rhythm is third-degree AV block. The patient is going to need a permanent pacemaker insertion scheduled to be done this morning. He is on room air oxygen. Blood pressure is adequate. Echocardiogram was done yesterday showed adequate positioning of the bioprosthetic valve. LV function was within normal limits. No evidence of any regurgitation. Neurologically, he is intact. Moving all 4 extremities. Blood work from today shows a WBC count of 8.7 with a hemoglobin of 10.8. BUN is at 18 with a creatinine of 1.1 and a sodium level is at 138. Glucose slightly elevated at 218 this morning. Is using the incentive spirometer. On today's evaluation of the 2022, the patient had a pacemaker inserted and the patient is postoperative day #1. The patient is also post TAVR seizure. He has no specific complaints. His cardiac rhythm is sinus. The patient had a permanent dual-chamber pacemaker implantation from the left axillary vein. Electrolytes are normal and the patient is a sodium level of 139, BUN is 11 with a creatinine of 0.9. Glucose 193. Hemodynamically stable on room air oxygen chest x-ray shows stable findings without any complications. Objective - Vital Signs Vital signs: Vital Signs Temp 98.6 F 11/13/22 04:00 Pulse 70 11/13/22 04:00 Resp 20 11/13/22 04:00 BP 134/59 11/13/22 07:08 Pulse Ox 96 11/13/22 04:00 FiO2 Intake & Output 11/12/22 11/13/22 11/13/22 18:59 06:59 18:59 Intake Total 992 250 Output Total 500 400 Balance 492 -150 Weight 114.3 kg Intake: IV 642 250 Sodium Chloride 0.9% 1, 350 250 000 ml @ 50 mls/hr IV . Q20H [facility] Rx#:[id number] Vancomycin 1,750 mg In 167 Sodium Chloride 0.9% 500 ml 500 ml @ 167 mls/hr IVPB ONCE ONE Rx#: [id number] Oral 350 Output: Urine 500 400 Other: Voiding Method Bedside Commode Urinal Urinal # Voids 1 1 ABP, PAP, CO, CI - Last Documented Arterial Blood Pressure 177/64 - Exam CONSTITUTIONAL: Sitting up to the bedside chair in the intensive care unit, appears comfortable, cooperative, no apparent acute distress. Patient is currently on room air oxygen. No signs of any respiratory distress. HEENT: Neck is supple, no JVD, no lymphadenopathy. RESPIRATORY: Lungs sounds essentially clear throughout, diminished to his bilateral bases. Respirations are symmetrical and nonlabored. Currently on room air with oxygen saturations 97%. Able to achieve 2000 mL on his incentive spirometry. Strong cough. CARDIOVASCULAR: Regular rhythm and rate. S1 and S2 present, negative for S3, or gallop. Positive systolic murmur 2/6. Palpable peripheral pulses bilaterally, trace edema to his bilateral lower extremities. No calf pain or tenderness. Knee-high MARCO ANTONIO hose and sequential compression devices in place to his bilateral lower extremities. GASTROINTESTINAL: Abdomen soft, nontender, nondistended. Active bowel sounds present 4 quadrants. Passing flatus. No guarding or rigidity. GENITOURINARY: Continues to void. INTEGUMENTARY: Skin is warm and dry with no evidence of clubbing or cyanosis. Bilateral groin puncture sites clean, dry and intact. Soft and tender with palpation. MUSKULOSKELETAL: Able to move all extremities, strength equal bilaterally. PSYCHIATRIC: Alert and oriented to person place and time, appropriate affect, intact judgment and insight. INVASIVE LINES AND TUBES: Right chest temporary pacemaker in place and connected to bedside pacemaker generator on a VVI of 50 bpm. - Labs CBC & Chem 7: 11/12/22 03:43 11/13/22 05:52 Labs: Abnormal Lab Results - Last 24 Hours (Table) 11/13/22 Range/Units 05:52 Glucose 193 H (74-99) mg/dL Assessment and Plan Plan: Severe symptomatic aortic stenosis post TAVR , patient is postoperative day # 3. Patient is hemodynamically stable. The patient's creatinine at 3rd degree AV block and is ventricularly paced. Nevertheless, the patient is hemodynamically stable. Is being considered for a permanent pacemaker insertion is currently off beta blockers and amiodarone. Electrolytes are all within normal limits. The patient is also post permanent dual pacemaker insertion Third-degree AV block post procedure and the patient underwent a permanent pacemaker insertion. Postoperatively #1 COPD with an FEV1 of 35% predicted Hypertension Hyperlipidemia Preoperative bifascicular cardiac block Paroxysmal atrial fibrillation Hypothyroidism Osteoarthritis Plan Permanent dual-chamber pacemaker has been inserted Hemodynamically stable No issues for now Electrolytes are stable Pulmonary critical care services will sign off Keep the patient in intensive. Possible discharge following his pacemaker insertion. Depending on his overall outcome.
--- NOTE | 2022-11-13 09:46 | P.PN ---
Subjective Progress Note Date: 11/13/22 PROGRESS NOTE The patient is a 76-year-old male who underwent TAVR on Tuesday and had evidence of high-grade AV block that persisted and underwent permanent pacemaker implantation yesterday. He is feeling well this morning, anxious to go home. His pacemaker interrogation showed normal sensing and pacing. His chest x-ray shows no evidence of pneumothorax. He is ambulating without difficulties. Medications: Amiodarone 100 mg daily, aspirin, Lipitor 20 mg daily, Coreg 25 mg twice a day, Plavix and 5 mg daily, hydrochlorothiazide 50 mg daily, Diovan 80 mg twice a day, Catapres patch, Synthroid PHYSICAL EXAMINATION: Blood pressure 134/60 heart rate 70 LUNGS: Clear to auscultation, pacemaker site clean HEART: Regular rate and rhythm, S1, S2. No S3. systolic ejection murmur ABDOMEN: Soft, nontender, no organomegaly EXTREMETIES: No edema LAB: BUN 11, creatinine 0.91, potassium 4.6, chest x-ray with no pneumothorax IMPRESSION: 1. Status post TAVR 2. Status post permanent pacemaker implantation for complete heart block post procedure 3. Hypertension 4. Hyperlipidemia PLAN: 1. Stop clonidine 2. Increase activity 3. Discharge home today 4. Follow-up as an outpatient Objective - Vital Signs Vital signs: Vital Signs Temp 98.6 F 11/13/22 04:00 Pulse 70 11/13/22 04:00 Resp 20 11/13/22 04:00 BP 134/59 11/13/22 07:08 Pulse Ox 96 11/13/22 04:00 FiO2 Intake & Output 11/12/22 11/13/22 11/13/22 18:59 06:59 18:59 Intake Total 992 250 Output Total 500 400 Balance 492 -150 Weight 114.3 kg Intake: IV 642 250 Sodium Chloride 0.9% 1, 350 250 000 ml @ 50 mls/hr IV . Q20H [facility] Rx#:[id number] Vancomycin 1,750 mg In 167 Sodium Chloride 0.9% 500 ml 500 ml @ 167 mls/hr IVPB ONCE ONE Rx#: [id number] Oral 350 Output: Urine 500 400 Other: Voiding Method Bedside Commode Urinal Urinal # Voids 1 1 ABP, PAP, CO, CI - Last Documented Arterial Blood Pressure 177/64 - Labs CBC & Chem 7: 11/12/22 03:43 03/11/23 05:52 Labs: Abnormal Lab Results - Last 24 Hours (Table) 11/13/22 Range/Units 05:52 Glucose 193 H (74-99) mg/dL
--- NOTE | 2022-11-13 09:53 | P.DS ---
Providers Date of admission: 11/10/22 07:00 Expected date of discharge: 11/13/22 Attending physician: Clive Sun DO Consults: 11/10/22 08:00 Consult to Anesthesia Routine Consulting Provider: Anesthesia,Services Consult Reason/Comments: Cardiac Surgery Pre-Op 11/10/22 11:50 Consult Physician Routine Consulting Provider: Gordy Ledesma Consult Reason/Comments: [employer] Consult: post cardiac surgery Do you want consulting provider notified?: Yes Consult Physician Routine Consulting Provider: Ortega Beasley Consult Reason/Comments: post TAVR Do you want consulting provider notified?: Already Contacted Primary care physician: Ronald Waite [facility] Course: MEDICAL HISTORY: 1. Severe symptomatic aortic valve stenosis 2. Preoperative Bifascicular block, postoperative third-degree heart block 3. History of paroxysmal atrial fibrillation 4. CAD with recent drug-eluting stent placed to the mid LAD and proximal circumflex coronary artery on 11/05/22 5. History of hypertension 6. Hyperlipidemia, treated 7. Diabetes mellitus type 2 with a preoperative hemoglobin A1c of 6.9% 8. Hypothyroidism, status post thyroidectomy 9. Previous tobacco dependence 10. Severe COPD with a preoperative FEV1 35% of predicted value 11. Osteoarthritis 12. Obesity 13. Chronic anemia PROCEDURE: 1. Percutaneous aortic valve implantation using a 26 mm Brooks Tristan Ultra valve under MARTHA and fluoroscopy guidance 2. Transesophageal echocardiography performed by anesthesia 3. Ultrasound-guided access and repair of the left femoral artery access site by Perclose closure device 4. Placement of temporary pacemaker wire 5. Aortic root angiography 6. Dual-chamber pacemaker implantation, [employer] HISTORY OF PRESENT ILLNESS: This is a 76-year-old gentleman who follows on an outpatient basis with Dr. Ronald Waite for primary care and Dr. Mcarthur for cardiology. He has a known history of aortic valve stenosis with progressive exertional dyspnea. He had been referred to structural heart clinic for evaluation for transcatheter aortic valve replacement after heart catheterization and transthoracic echocardiogram were completed. Echocardiography demonstrated systolic function with EF 60-65%, aortic valve area 0.89 cm with a peak/mean gradient 74/39 mmHg. Heart catheterization showed critical disease to the RCA, proximal circumflex IFR0.87, mid circumflex 60-70%, LAD IFR 0.84 and mid LAD stenosis of 60%. Due to the findings on the heart catheterization the patient underwent successful stenting of the mid LAD, and proximal left circumflex coronary artery on 11/05/[address] Mcarthur. After workup was completed STS risk score was calculated along with incremental risk and the patient was felt to be intermediate risk for surgical aortic valve replacement, therefore transcatheter aortic valve replacement was recommended. The usual course of TAVR was discussed in detail the patient, risks and benefits were reviewed, shared decision making between cardiology, surgery, and the patient/family took place, and the patient consented to proceed with the procedure. HOSPITAL COURSE: The patient was brought to the hospital on 11/10/22, was taken to the extended stay area, prepared in the usual fashion, and subsequently taken to the cardiac catheterization laboratory where Dr. Sun and Dr. Beasley completed TAVR procedure under general anesthesia with fluoroscopy and MARTHA. The valve was deployed under rapid ventricular pacing and proceeded without event. At the end of the procedure there was mean gradient 4.7, hemodynamics were felt to be acceptable, and there was no evidence of significant perivalvular leak. Upon completion of the procedure the patient was extubated and was transferred to the cardiovascular intensive care unit where he was recovered and monitored hemodynamically. Postoperatively the patient did have complete heart block requiring placement of permanent pacemaker which was performed by Dr. Penn from electrophysiology. His oxygen was titrated down, he was tolerating oral diet, his pain was controlled, follow-up TTE demonstrated normal left ve ntricular systolic function with an ejection fraction of 50-55%, trace paravalvular regurgitation, acceptable hemodynamics, and he was ready to be discharged to home on postoperative day #3. He received written and verbal instruction regarding his medications, activity restrictions, signs and symptoms requiring physician notification, and his follow-up appointments. Patient Condition at Discharge: Stable Plan - Discharge Summary Discharge Rx Participant: No New Discharge Prescriptions: New carvediloL [Coreg*] 25 mg PO BID-W/MEALS #60 tab Valsartan [Diovan] 80 mg PO DAILY #30 tab Continue hydroCHLOROthiazide [Hydrodiuril] 50 mg PO DAILY Simvastatin 4 mg PO HS Levothyroxine Sodium [Euthyrox] 125 mcg PO AC-BRKFST Clopidogrel [Plavix] 75 mg PO DAILY #90 tab Aspirin 81 mg PO DAILY Amiodarone [Cordarone] 100 mg PO DAILY Ferrous Sulfate [Iron (65 MG Elemental)] 325 mg PO DAILY Acetaminophen Tab [Tylenol] 650 mg PO Q4HR PRN PRN Reason: Pain Control Discontinued Metoprolol Tartrate [Lopressor] 50 mg PO BID Discharge Medication List hydroCHLOROthiazide [Hydrodiuril] 50 mg PO DAILY 07/11/15 [History] Simvastatin 4 mg PO HS 06/16/21 [History] Amiodarone [Cordarone] 100 mg PO DAILY 04/08/22 [History] Acetaminophen Tab [Tylenol] 650 mg PO Q4HR PRN 10/07/22 [History] Ferrous Sulfate [Iron (65 MG Elemental)] 325 mg PO DAILY 10/07/22 [History] Levothyroxine Sodium [Euthyrox] 125 mcg PO AC-BRKFST 10/07/22 [History] Clopidogrel [Plavix] 75 mg PO DAILY #90 tab 11/06/22 [Rx] Aspirin 81 mg PO DAILY 11/09/22 [History] Valsartan [Diovan] 80 mg PO DAILY #30 tab 11/13/22 [Rx] carvediloL [Coreg*] 25 mg PO BID-W/MEALS #60 tab 11/13/22 [Rx] Follow up Appointment(s)/Referral(s): Barber Penn MD [STAFF PHYSICIAN] - 11/19/22 4:00 pm (Device clinic for pacemaker check ) Tayo Mcarthur MD [STAFF PHYSICIAN] - 11/24/22 4:00 pm (Your appointment on 11/24/[address] Mcarthur is for groin check. You will also have a 30 day post TAVR echo and appointment with Dr. Mcarthur 01/21/2023 @ 3 PM, and a 1 year post TAVR echo and appointment with Dr. Mcarthur 10/24/23 @ 1:45 pm) Ronald Waite MD [Primary Care Provider] - As Needed Clinic,Structural Heart [NON-STAFF] - 01/21/23 2:30 pm (You have an appointment at the Valve Clinic for 30 day follow up 01/21/23 @ 2:30 pm, and again 10/14/23 @ 1:15 for a 1 year follow up. Both appointments are in the Valve Clinic prior to your appointments with Dr. Sun) Ambulatory/Diagnostic Orders: Complete Blood Count w/diff [LAB.AMB] Facility: [facility], Location: [facility] Complete Blood Count w/diff [LAB.AMB] Facility: [facility], Location: Laboratory [facility] Comprehensive Metabolic Panel [LAB.AMB] Facility: [facility], Location: Laboratory [facility] Comprehensive Metabolic Panel [LAB.AMB] Facility: [facility], Location: Laboratory [facility] Activity/Diet/Wound Care/Special Instructions: DISCHARGE INSTRUCTIONS: 1. No driving for 1 week, or until physician gives their ok. 2. No lifting, pushing, or pulling more than 5-10 pounds for 1 week. 3. Hold both groins when you cough or sneeze for the next 2 weeks. Bruising is common, but report increased swelling, pain or fever >101F 4. Shower daily. No pool, hot tub, or bathtub for 1 week 5. No powders, lotions, ointments on incisions. 6. No straining, including for bowel movements. Use stool softner if necessary 7. Stairs are not an issue. Go slowly, using handrail and take 1 step at a time. Ambulate several times daily 8. Continue pain control per as needed orders. 9. Take only the medications listed on your discharge form 10. Eat low salt (limited to 2 grams or 2000 milligrams) daily, avoid adding salt, avoid canned/processed foods 11. Take your weight daily in the morning and record, bring with you to your follow up appointments 12. Keep all follow up appointments. You will need a valve clinic appointment at 30 days and 1 year post procedure for follow up 13. You have been referred to and are expected to begin Cardiac Rehab in approximately 4 weeks. 14. You will need antibiotics prior to any dental work, including cleanings, and any surgeries to prevent Endocarditis (bacterial infection in your heart) For any questions or concerns please call your valve coordinators: Lisa or Jonas @ PATIENT EDUCATION MATERIAL Instructions following a heart rhythm device implant. 1. Keep dressing DRY for 5 DAYS. You may cover the area with Saran or Cling Wrap, prior to a shower. 2. The dressing will be removed in the Device Clinic at [facility]. Absorbable sutures were used to close the wound. 3. Avoid raising the left arm above the shoulder level. 4 week restriction 4. Avoid arm movements, like backscratching, rubbing the head, or pulling on a cord. 4 weeks restriction 5. Gentle range of motion movements of the shoulder, closest to the incision should be performed to avoid a frozen shoulder. (Pendulum exercises of the shoulder) 6. The opposite arm may be used freely. 7. Avoid driving for 7 days. 8. Avoid activities such as golfing, swimming, weed whacking, lifting more than 10 pounds weight, bowling, gymnastics and weight training/lifting. (6 weeks restriction) 9. Activities such as wood chopping with an axe, pull-ups in the gymnasium, power lifting, arc-welding, being close to home induction cooktops will always be a problem. 10. Arm sling is only a reminder not to raise the arm above the head. You do not need to keep the arm completely immobilized. Your free to move the arm and use it and for normal activities. In case of any problems, please call [facility], [place], @ [phone], Attention: Device Clinic Device clinic follow-up in 5 days Discharge Disposition: HOME WITH HOME HEALTH SERVICES
[2022-11-13 11:32] LABS: Glucose,Whole Blood 198 mg/dL (70-110)
[2022-11-13 12:20] VITALS: BP 118/49; PULSE 64; RESP 18; TEMP 97.8
[2022-11-14] MEDS ORDERED: VALSARTAN 80 MG TAB PO SCH (09:00)
== END 2022-11-13 14:18 | disposition home health service (06) | DRG 267 ==
LOC: 2ORMAIN 07:00 → 2SICU 11:42 → 3SCARD 11-13 06:59
PROVIDERS: ADMIT Internal Medicine; ATTEND Internal Medicine
PROC: B3101ZZ Fluoroscopy of Thoracic Aorta using Low Osmolar Contrast (ICD-10-PCS; 2022-11-10)
PROC: 5A1223Z Performance of Cardiac Pacing, Continuous (ICD-10-PCS; 2022-11-10)
PROC: 02RF37Z Replacement of Aortic Valve with Autologous Tissue Substitute, Percutaneous Approach (ICD-10-PCS; principal; 2022-11-10 10:15)
PROC: 02PA3MZ Removal of Cardiac Lead from Heart, Percutaneous Approach (ICD-10-PCS; 2022-11-12)
PROC: 0JH806Z Insertion of Pacemaker, Dual Chamber into Abdomen Subcutaneous Tissue and Fascia, Open Approach (ICD-10-PCS; 2022-11-12)
PROC: 02H63JZ Insertion of Pacemaker Lead into Right Atrium, Percutaneous Approach (ICD-10-PCS; 2022-11-12)
PROC: 02HK3JZ Insertion of Pacemaker Lead into Right Ventricle, Percutaneous Approach (ICD-10-PCS; 2022-11-12)
PROC: 02HK3JZ Insertion of Pacemaker Lead into Right Ventricle, Percutaneous Approach (ICD-10-PCS; 2022-11-12)
PROC: 4A02XFZ Measurement of Cardiac Rhythm, External Approach (ICD-10-PCS; 2022-11-13)
DX: I08.3 Combined rheumatic disorders of mitral, aortic and tricuspid valves (principal); Z00.6 Encounter for examination for normal comparison and control in clinical research program; I44.2 Atrioventricular block, complete; I45.2 Bifascicular block; I97.190 Other postprocedural cardiac functional disturbances following cardiac surgery; R00.1 Bradycardia, unspecified; I11.9 Hypertensive heart disease without heart failure; E78.5 Hyperlipidemia, unspecified; E11.9 Type 2 diabetes mellitus without complications; D50.9 Iron deficiency anemia, unspecified; E66.9 Obesity, unspecified; E89.0 Postprocedural hypothyroidism; J44.9 Chronic obstructive pulmonary disease, unspecified; Z68.33 Body mass index [BMI] 33.0-33.9, adult; I77.819 Aortic ectasia, unspecified site; I48.0 Paroxysmal atrial fibrillation; M19.90 Unspecified osteoarthritis, unspecified site; R01.1 Cardiac murmur, unspecified; H91.90 Unspecified hearing loss, unspecified ear; I25.10 Atherosclerotic heart disease of native coronary artery without angina pectoris; R33.9 Retention of urine, unspecified; Y83.8 Other surgical procedures as the cause of abnormal reaction of the patient, or of later complication, without mention of misadventure at the time of the procedure; Y71.1 Therapeutic (nonsurgical) and rehabilitative cardiovascular devices associated with adverse incidents; Z96.641 Presence of right artificial hip joint; Z87.891 Personal history of nicotine dependence; Z82.49 Family history of ischemic heart disease and other diseases of the circulatory system; Z79.899 Other long term (current) drug therapy; Z79.890 Hormone replacement therapy; Z79.02 Long term (current) use of antithrombotics/antiplatelets; Z79.82 Long term (current) use of aspirin
CPT/HCPCS: 33208; 33210; 33362; 71045; 80048; 80053; 82330; 83735; 85025; 85027; 85610; 85730; 86850; 86900; 86901; 93306; 93312; 93320; 93325

== ENCOUNTER → 2023-01-25 | Outpatient (CLI) | payer MEDICARE ==
[2023-01-25 15:03] LABS: Basophils # (A) 0.06 X 10*3/uL (0.00-0.10); Basophils % (A) 0.7 %; Eosinophils % (A) 3.6 %; HCT 36.1 % (39.6-50.0); HGB 10.5 g/dL (13.0-17.0); Immature Grans, Automated 0.5 %; Lymphocytes # (A) 1.28 X 10*3/uL (0.90-5.00); Lymphocytes % (A) 15.4 %; MCH 24.2 pg (27.0-32.0); MCHC 29.1 g/dL (32.0-37.0); MCV 83.4 fL (80.0-97.0); Monocytes # (A) 0.96 X 10*3/uL (0.20-1.00); Monocytes % (A) 11.6 %; NRBC Per 100 WBC 0 /100 WBCS (0.0-0.0); Neutrophils # (A) 5.66 X 10*3/uL (1.80-7.70); Neutrophils % (A) 68.2 %; Platelet Count 235 X 10*3/uL (140-440); RBC 4.33 X 10*6/uL (4.40-5.60); RDW 14.6 % (11.5-14.5)
[2023-01-25 15:27] LABS: African American GFR (CKD) 63.7 (60.0-200.0); Albumin/Globulin Ratio 1.69 (1.60-3.17); Anion Gap 11.8 mmol/L (10.00-18.00); BUN/Creat Ratio 15.81 Ratio (12.00-20.00); Blood Urea Nitrogen 19.6 mg/dL (9.0-27.0); Calcium 9.1 mg/dL (8.7-10.3); Carbon Dioxide 25.5 mmol/L (20.0-27.5); Globulin 2.3 g/dL (1.6-3.3); Potassium 4.6 mmol/L (3.5-5.5); Total Bilirubin 0.3 mg/dL (0.30-1.20); Total Protein 6.3 g/dL (6.2-8.2)
== END | disposition home or self-care (01) ==
LOC: LABWHC1 11:54
PROVIDERS: ATTEND Thoracic Surgery (Cardiothoracic Vascular Surgery)
DX: I35.1 Nonrheumatic aortic (valve) insufficiency (principal)
CPT/HCPCS: 36415; 80053; 85025